=== PATIENT | female | born 1950 | race Caucasian/White ===

== ENCOUNTER 2016-04-07 11:05 | Inpatient (IN) | payer MEDICARE ==
[~2016-04-07] VITALS: Ht 167.6 cm; Wt 63.6 kg
[2016-04-07] VITALS (8 sets, daily range): BP systolic 115–143; BP diastolic 55–60; PULSE 59–73; RESP 16–28; TEMP 97.6; O2SAT 93–100
[~2016-04-07 11:05] MED LIST: ACETAMIN-HYDROcod 325-5 MG PO; AMBI5TAB PO; DOCU1CAP39 PO; FLUO20TA20 PO; MEGE40SU PO; PHEN100 PO; VANC500 PO
[2016-04-07 12:14] LABS: AUTOMATED NEUTROPHIL # 7.2 TH/MM3 (1.8-7.7); BASOPHIL # 0.1 TH/MM3 (0-0.2); BASOPHIL % 0.6 % (0.0-2.0); EOSINOPHIL # 0.2 TH/MM3 (0-0.4); EOSINOPHIL % 2.3 % (0.0-4.0); HEMATOCRIT 37.3 % (35.0-46.0); HEMO FLAGS DIFF FINAL; LYMPH % 16.8 % (9.0-44.0); LYMPHOCYTE # 1.7 TH/MM3 (1.0-4.8); MEAN CELL VOLUME 83.4 FL (80.0-100.0); MEAN CORPUSCULAR HEMOGLOBIN 29.1 PG (27.0-34.0); MEAN CORPUSCULAR HGB CONC 34.9 % (32.0-36.0); NEUT % 71.3 % (16.0-70.0); PLATELET COUNT 457 TH/MM3 (150-450); RED BLOOD COUNT 4.47 MIL/MM3 (4.00-5.30); RED CELL DISTRIBUTION WIDTH 13.4 % (11.6-17.2); WHITE BLOOD COUNT 10.1 TH/MM3 (4.0-11.0)
[2016-04-07] MEDS ORDERED: TEGR200T PO (12:28)
[2016-04-07] MEDS ORDERED: SODIUM CHLOR 0.9% 1000 ML INJ 1,000 ML IV ONE (12:28)
--- NOTE | 2016-04-07 12:29 | PD ---
HPI Chief Complaint: Seizure Time Seen by Provider: 12:29 Travel History International Travel<30 days: No Contact w/Intl Traveler<30days: No Traveled to known affect area: No History of Present Illness HPI 66-year-old female presents to the emergency department via EMS for evaluation of seizures. According to the at bedside, he was driving down the road. The patient started staring out the window and started seizing. She vomited several times. He reports 3-4 iaob-zw-ispo seizures. He states they lasted a couple of minutes each time. She had no incontinence or tongue biting during the episodes. He does state she was postictal after. The patient reports history of seizures and is on Tegretol. She sees Dr. Mcginnis. She states she was placed on Tegretol approximate one month ago. She was previously on Dilantin, but it made her too tired since she was switched to Tegretol. She is unsure of her doses of Tegretol at this time. The patient also reports history of COPD and depression. She is currently on inhaler, Prozac, Tegretol. She also states she took Mucinex this morning due to being congested. Patient denies any fevers or chills. No chest pain or shortness of breath. She denies any abdominal pain. Patient denies any headache. Patient states she feels tired and fatigued at this time. Patient states the last seizure she had was in October after she was admitted with hyponatremia. She states that she also takes a salt tablet every day to 2 history of hyponatremia. She states she had lab work done several weeks ago which showed a sodium level of 1:30, she is unsure of her current sodium level. PFSH Past Medical History Arthritis: Yes Anxiety: No Depression: Yes Cancer: No Cardiovascular Problems: No COPD: Yes Diminished Hearing: Yes Endocrine: No Genitourinary: No Immune Disorder: No Musculoskeletal: No Neurologic: Yes Psychiatric: Yes Reproductive: No Respiratory: Yes (COPD) Seizures: Yes ?: Not Past Surgical History Abdominal Surgery: Yes (gallbladder removal ) Cholecystectomy: Yes (LAP) Social History Alcohol Use: No Tobacco Use: Yes (02/27 PPD ) Substance Use: No Allergies-Medications (Allergen,Severity, Reaction): Coded Allergies: No Known Allergies (Unverified , 04/07/16) Reported Meds & Prescriptions Reported Meds & Active Scripts Active Reported Tegretol (Carbamazepine) 200 Mg Tab 400 Mg PO BID Fluoxetine Hcl (Fluoxetine HCl) 20MG Cap 20 Mg PO DAILY Review of Systems Except as stated in HPI: all other systems reviewed are Neg Physical Exam Narrative GENERAL: Well-developed well-nourished female patient, afebrile. Hard of hearing. SKIN: Warm and dry. HEAD: Normocephalic. Atraumatic. EYES: No scleral icterus. No injection or drainage. NECK: Supple, trachea midline. No JVD or lymphadenopathy. CARDIOVASCULAR: Regular rate and rhythm without murmurs, gallops, or rubs. RESPIRATORY: Breath sounds equal bilaterally. No accessory muscle use. Mild expiratory wheezes noted. GASTROINTESTINAL: Abdomen soft, non-tender, nondistended. MUSCULOSKELETAL: No cyanosis, or edema. Bilateral upper and lower extremity strength 5/5. All extremities are neurovascularly intact. BACK: Nontender without obvious deformity. No CVA tenderness. Data Data Last Documented VS Vital Signs Date Time Temp Pulse Resp B/P Pulse Ox O2 Delivery O2 Flow Rate FiO2 04/07/16 13:03 65 16 116/55 98 Room Air 04/07/16 11:18 97.6 Orders Complete Blood Count With Diff (04/07/16 11:28) Comprehensive Metabolic Panel (04/07/16 11:28) Electrocardiogram (04/07/16 ) Carbamazepine (Tegretol) (04/07/16 11:28) Chest, Single Ap (04/07/16 ) Urinalysis - C+S If Indicated (04/07/16 12:26) Blood Glucose (04/07/16 12:28) Ecg Monitoring (04/07/16 12:28) Iv Access Insert/Monitor (04/07/16 12:28) Oximetry (04/07/16 12:28) Sodium Chlor 0.9% 1000 Ml Inj (Ns 1000 M (04/07/16 12:28) Sodium Chloride 0.9% Flush (Ns Flush) (04/07/16 12:30) Levetiracetam 1000 Mg Inj (Keppra 1000 M (04/07/16 12:30) ^ Seizure Precautions (04/07/16 12:30) Labs Laboratory Tests Test 04/07/16 11:50 White Blood Count 10.1 TH/MM3 Red Blood Count 4.47 MIL/MM3 Hemoglobin 13.0 GM/DL Hematocrit 37.3 % Mean Corpuscular Volume 83.4 FL Mean Corpuscular Hemoglobin 29.1 PG Mean Corpuscular Hemoglobin 34.9 % Concent Red Cell Distribution Width 13.4 % Platelet Count 457 TH/MM3 Mean Platelet Volume 6.7 FL Neutrophils (%) (Auto) 71.3 % Lymphocytes (%) (Auto) 16.8 % Monocytes (%) (Auto) 9.0 % Eosinophils (%) (Auto) 2.3 % Basophils (%) (Auto) 0.6 % Neutrophils # (Auto) 7.2 TH/MM3 Lymphocytes # (Auto) 1.7 TH/MM3 Monocytes # (Auto) 0.9 TH/MM3 Eosinophils # (Auto) 0.2 TH/MM3 Basophils # (Auto) 0.1 TH/MM3 CBC Comment DIFF FINAL Differential Comment Sodium Level 124 MEQ/L Potassium Level 4.0 MEQ/L Chloride Level 88 MEQ/L Carbon Dioxide Level 29.7 MEQ/L Anion Gap 6 MEQ/L Blood Urea Nitrogen 12 MG/DL Creatinine 0.80 MG/DL Estimat Glomerular Filtration 71 ML/MIN Rate Random Glucose 98 MG/DL Calcium Level 8.3 MG/DL Total Bilirubin 0.2 MG/DL Aspartate Amino Transf 11 U/L (AST/SGOT) Alanine Aminotransferase 20 U/L (ALT/SGPT) Alkaline Phosphatase 181 U/L Total Protein 6.8 GM/DL Albumin 3.5 GM/DL Carbamazepine (Tegretol) Level 5.3 MCG/ML MDM Medical Decision Making Medical Screen Exam Complete: Yes Emergency Medical Condition: Yes Medical Record Reviewed: Yes Interpretation(s) chest x-ray - CONCLUSION: No acute disease. Differential Diagnosis Seizure versus status epilepticus versus hyponatremia versus pneumonia Narrative Course 66-year-old female presents to the emergency department for evaluation of 3-4 stsd-ow-iocq seizures with a history of seizures and hyponatremia. EKG, CBC, CMP, UA, chest x-ray, Tegretol level are ordered and pending. Patient is given normal saline 1 L IV bolus. I discussed the case with my attending physician, Dr. Lee, who recommends Keppra 1 g IV. EKG [-]. CBC shows no acute abnormality. CMP shows a critically low sodium of 124, no other acute abnormality. UA [-]. Tegretol level is 5.3. Chest x-ray shows no acute disease. 1248 - lab called with a critical sodium level of 124. 1305 - Trust Administrator treasury management sales consultant is paged. [phone] - Dr. Velasquez accepted admission. Diagnosis Primary Impression: Hyponatremia Additional Impression: Seizures Admitting Information Admitting Physician Requests: Admit Gricelda Samaniego Apr 07, 2016 12:29
[2016-04-07] MEDS ORDERED: levETIRAcetam 1000 MG INJ 100 ML IV ONE (12:30)
[2016-04-07 12:41] LABS: ALKALINE PHOSPHATASE 181 U/L (45-117); ALT (GPT) 20 U/L (10-53); ANION GAP 6 MEQ/L (5-15); AST (GOT) 11 U/L (15-37); BICARBONATE 29.7 MEQ/L (21.0-32.0); BLOOD UREA NITROGEN 12 MG/DL (7-18); CHLORIDE 88 MEQ/L (98-107); GLOMERULAR FILTRATION RATE 71 ML/MIN (>89); TOTAL BILIRUBIN ADULT 0.2 MG/DL (0.2-1.0)
[2016-04-07 12:47] LABS: SODIUM (NA) 124 MEQ/L (136-145)
[2016-04-07] MEDS: SODIUM CHLORIDE 0.9% FLUSH 5 ML FLUSH IVF PRN ×2 (12:50→14:45)
--- NOTE | 2016-04-07 13:09 | RADRPT ---
EXAM DATE/TIME: 04/07/2016 12:31 [facility] COMPARISON: CHEST SINGLE AP, October 29, 2015, 15:03. INDICATIONS : Wheezing, Seizures MEDICAL HISTORY : Hypertension. Seizures, Smoker. SURGICAL HISTORY : None. ENCOUNTER: Initial ACUITY: 1 day PAIN SCORE: 0/10 LOCATION: chest FINDINGS: A single view of the chest demonstrates the lungs to be symmetrically aerated without evidence of mas s, infiltrate or effusion. The cardiomediastinal contours are unremarkable. Osseous structures are intact. CONCLUSION: No acute disease. Wade Nieves MD FACR on April 07, 2016 at 13:07 Board Certified Radiologist. This report was verified electronically.
[2016-04-07] MEDS ORDERED: ONDANSETRON HCL 4 MG/2 ML VIAL IV PUSH ONE (14:00)
[2016-04-07] MEDS ORDERED: MORPHINE SULFATE 4 MG/ML INJ IV PUSH ONE (14:00)
[2016-04-07 15:07] LABS: BACTERIA, URINE RARE /hpf; BLOOD, URINE NEG (NEG); COMMENT (UR) CULTURE INDICATED; CULTURE IF INDICATED CULTURE INDICATED; GLUCOSE,URINE NEG (NEG); GRANULAR CAST, URINE 1 /lpf; KETONE, URINE NEG (NEG); PH, URINE 6.5 (5.0-8.5); SQUAMOUS EPITHELIAL CELL URINE 3 /hpf (0-5); URINE COLOR LIGHT-YELLOW (YELLW/STRAW)
[2016-04-07 15:12] LABS: NITRITE,URINE POS (NEG)
--- NOTE | 2016-04-07 16:57 | MB ---
cc: SARITA SEXTON DATE OF CONSULTATION 04/07/16 A 66-year-old right-handed woman with a history of hypertension, COPD who had a first seizure in December of 2014 when she had low-sodium and then evidently was put on Dilantin, had another seizure in September of 2015 and has not any seizures since, but about a month ago was switched from Dilantin to Tegretol as far as she knows and had another seizure today with which she felt lightheaded and then blacked out. She usually has generalized tonic clonic seizures with some incontinence and tongue biting. She has had no other seizures, however, besides these stated seizures. No odd smells, taste or federico vu or woken up, wet the bed of bitten her tongue. She started staring out the window and started seizing. She vomited several times, had three to four mpzj-na-iefn seizures, postictal afterwards, some history of depression. SOCIAL HISTORY Not a smoker or drinker, lives with her . FAMILY HISTORY Negative for cancer, seizure or stroke. REVIEW OF SYSTEMS No recent illness or headache. She says there is a history of hypertension, COPD, but she denies any history of diabetes, hypercholesterolemia, [place], stent, angioplasty, atrial fibrillation, Coumadin, renal, hepatic, thyroid disease, lupus, ulcer, cancer, stroke. She has never had any head injury or anything else that might cause a seizure. She was seen by Dr. Mcginnis in October of 2015. She became aphasic in the emergency room, some twitching on the left side of the face. At that time, she had a sodium of 116 and he noted that she had had a seizure prior with low-sodium. The sodium was up to 131 when she had the seizure. He started her on Keppra. EEG was normal. She had some seizures after being on Keppra. Dilantin was added. Keppra was stopped. ALLERGIES No known drug allergies. MEDICATIONS 1. Fluoxetine 2. Tegretol 400 mg twice a day PHYSICAL EXAMINATION On exam afebrile, 121/58, 93, 16, 65. There are no carotid bruits. Heart was regular rhythm. I did not detect a murmur. Pupils are equal. Visual ontiveros are full. Extraocular movements are intact without nystagmus. Face symmetric with normal sensation. Tongue was midline. There is no drift. She had normal strength in upper and lower extremities bilaterally. DTRs are trace throughout. Toes downgoing bilaterally. Pinprick is intact throughout. She is not ataxic on [id number]. She is a little hard of hearing but speech is fluent. She is not aphasic. LABORATORY DATA CBC is normal today. Tegretol level was 5.3. UA positive nitrite but no white cells, leukocyte esterase negative. Sodium today is 124. She has a long history of hyponatremia. LFTs are normal. Albumin 3.5, glucose 98, calcium 8.3. IMAGING STUDIES Chest x-ray is normal. MRI of the brain was normal. In October of 2015, carotid ultrasound was negative at that time. MRI of the brain was done without contrast. IMPRESSION Breakthrough seizures, hyponatremia. With the sodium of course can continue to keep the sodium low. The Tegretol of course can cause some hyponatremia, but she has had that predating the Tegretol. I think we will switch her to Depakote at this point. She was switched off Dilantin due to the feeling of fatigue on it. If her MRI is negative, she could be discharged when they get her sodium up to normal, but do not increase the sodium more than 10 mEq a day to prevent a central pontine myelinolysis. We will check an MRI of the brain with contrast. If her sodium does not come up as an outpatient, we should have see renal outpatient because of hyponatremia, chronic. MD ELISSA Moore/ /4:18 PM /4:33 PM
[2016-04-07] MEDS ORDERED: SODIUM CHLOR 0.9% 1000 ML INJ 1,000 ML IV SCH (17:03)
[2016-04-07] MEDS ORDERED: ONDANSETRON HCL 4 MG/2 ML VIAL IV PRN (17:15)
[2016-04-07] MEDS ORDERED: MISCELLANEOUS NURSING INFORMATION XX SCH (17:15)
[2016-04-07] MEDS ORDERED: ACETAMINOPHEN 325 MG TAB PO PRN (17:15)
[2016-04-07] MEDS ORDERED: METOCLOPRAMIDE HCL 10 MG/2 ML VIAL IV PRN (17:15)
[2016-04-07] MEDS ORDERED: CHLORHEXIDINE GLUCONATE 2 % 1 PACK (2 CLOTHS) TOP PRN (17:15)
[2016-04-07] MEDS ORDERED: SODIUM CHLORIDE 0.9% FLUSH 5 ML FLUSH IV FLUSH PRN (17:15)
--- NOTE | 2016-04-07 17:24 | HHI.HP ---
HPI Service Critical Care Medicine Primary Care Physician Elroy Milian M.D. Admission Diagnosis hyponatremia, seizures Diagnosis: Travel History International Travel<30 Days: No Contact w/Intl Traveler <30 Da: No Traveled to Known Affected Are: No History of Present Illness 66-year-old female presents for evaluation of seizures. According to the at bedside, he was driving down the road. The patient started staring out the window and started seizing. She vomited several times. He reports 3-4 iqin-an-vraj seizures. He states they lasted a couple of minutes each time. She had no incontinence or tongue biting during the episodes. He does state she was postictal after. The patient reports history of seizures and is on Tegretol. She sees Dr. Mcginnis. She states she was placed on Tegretol approximate one month ago. She was previously on Dilantin, but it made her too tired since she was switched to Tegretol. Review of Systems Constitutional: DENIES: Diaphoretic episodes, Fatigue, Fever, Weight gain, Weight loss, Chills, Dizziness, Change in appetite, Night Sweats Endocrine: DENIES: Abnorml menstrual pattern, Heat/cold intolerance, Polydipsia , Polyuria, Polyphagia Eyes: DENIES: Blurred vision, Diplopia, Eye inflammation, Eye pain, Vision loss , Photosensitivity, Double Vision Ears, nose, mouth, throat: DENIES: Tinnitus, Hearing loss, Vertigo, Nasal discharge, Oral lesions, Throat pain, Hoarseness, Ear Pain, Running Nose, Epistaxis, Sinus Pain, Toothache, Odynophagia Respiratory: DENIES: Apneas, Cough, Snoring, Wheezing, Hemoptysis, Sputum production, Shortness of breath Cardiovascular: DENIES: Chest pain, Palpitations, Syncope, Dyspnea on Exertion , PND, Lower Extremity Edema, Orthopnea, Claudication Gastrointestinal: DENIES: Abdominal pain, Black stools, Bloody stools, Constipation, Diarrhea, Nausea, Vomiting, Difficulty Swallowing, Anorexia Genitourinary: DENIES: Abnormal vaginal bleeding, Dysmenorrhea, Dyspareunia, Sexual dysfunction, Urinary frequency, Urinary incontinence, Urgency, Hematuria , Dysuria, Nocturia, Vaginal discharge Musculoskeletal: DENIES: Joint pain, Muscle aches, Stiffness, Joint Swelling, Back pain, Neck pain Integumentary: DENIES: Abnormal pigmentation, Pruritus, Rash, Nail changes, Breast masses, Breast skin changes, Nipple discharge Hematologic/lymphatic: DENIES: Bruising, Lymphadenopathy Immunologic/allergic: DENIES: Eczema, Urticaria Neurologic: DENIES: Abnormal gait, Headache, Localized weakness, Paresthesias, Seizures, Speech Problems, Tremor, Poor Balance Psychiatric: DENIES: Anxiety, Confusion, Mood changes, Depression, Hallucinations, Agitation, Suicidal Ideation, Homicidal Ideation, Delusions Past Family Social History Allergies: Coded Allergies: No Known Allergies (Unverified , 04/07/16) Past Medical History Depression COPDon home oxygen at nighttime, and daytime when necessary Seizures from hyponatremia Past Surgical History Cholecystectomy Reported Medications Reported Meds & Active Scripts Active Reported Tegretol (Carbamazepine) 200 Mg Tab 400 Mg PO BID Fluoxetine Hcl (Fluoxetine HCl) 20MG Cap 20 Mg PO DAILY Active Ordered Medications Current Medications Medications (Trade) Dose Ordered Sig/Julieta Route PRN Reason Start Time Stop Time Status Last Admin Dose Admin Carbamazepine (TEGretol) 400 mg Q12HR PO 04/07/16 21:00 04/07/16 20:38 Divalproex Sodium 1000 mg 1,000 mg HS PO 04/07/16 21:00 04/07/16 20:38 Sodium Chloride (NS 1000 ml Inj) 1,000 ml @ 75 mls/hr [id number] IV 04/07/16 16:25 04/08/16 05:45 IV Flush (NS Flush) 2 ml UNSCH PRN IV FLUSH FLUSH AFTER USING IV ACCESS 04/07/16 17:15 IV Flush (NS Flush) 2 ml BID IV FLUSH 04/07/16 21:00 04/07/16 20:46 Acetaminophen (Tylenol) 650 mg Q6H PRN PO PAIN 1-10 AND/OR FEVER >101F 04/07/16 17:15 Morphine Sulfate (Morphine Inj) 2 mg Q2H PRN IV PAIN SCALE 6 TO 10 04/07/16 17:15 04/08/16 05:09 Famotidine (Pepcid Inj) 20 mg Q12HR IV PUSH 04/07/16 21:00 04/07/16 20:40 Ondansetron HCl (Zofran Inj) 4 mg Q6H PRN IV NAUSEA OR VOMITING 04/07/16 17:15 Metoclopramide HCl (Reglan Inj) 10 mg Q6H PRN IV NAUSEA OR VOMITING 04/07/16 17:15 Docusate Sodium (Colace) 100 mg BID PO 04/07/16 21:00 04/07/16 20:38 Zolpidem Tartrate (Ambien) 5 mg HS PRN PO INSOMNIA 04/07/16 17:15 04/07/16 20:39 Enoxaparin Sodium (Lovenox Inj) 30 mg Q24H SQ 04/07/16 18:00 Miscellaneous Information 1 [id number] 04/07/16 17:15 Chlorhexidine Gluconate (Chlorhexidine 2% Cloth) 3 pack Taper DAILY@04 TOP 04/08/16 04:00 04/04/17 03:59 Chlorhexidine Gluconate (Chlorhexidine 2% Cloth) 3 pack UNSCH PRN [facility] 04/07/16 17:15 Sodium Chloride (Sodium Chloride) 3 gm QID PO 04/07/16 21:00 04/07/16 20:56 Family History Noncontributory Social History Tobacco use: quit 3 years ago Alcohol use: Denies Drug use: Denies Physical Exam Vital Signs Vital Signs Date Time Temp Pulse Resp B/P Pulse Ox O2 Delivery O2 Flow Rate FiO2 04/07/16 17:17 68 16 123/58 100 Room Air 04/07/16 14:49 73 16 115/57 96 Room Air 04/07/16 13:03 65 16 116/55 98 Room Air 04/07/16 11:19 Room Air 04/07/16 11:18 97.6 63 18 121/58 93 Room Air 04/07/16 11:18 97.6 63 18 121/58 93 Physical Exam GENERAL: Well-nourished, well-developed patient. SKIN: Warm and dry. HEAD: Normocephalic. EYES: No scleral icterus. No injection or drainage. NECK: Supple, trachea midline. No JVD or lymphadenopathy. CARDIOVASCULAR: Regular rate and rhythm without murmurs, gallops, or rubs. RESPIRATORY: Breath sounds equal bilaterally. No accessory muscle use. GASTROINTESTINAL: Abdomen soft, non-tender, nondistended. MUSCULOSKELETAL: No cyanosis, or edema. BACK: Nontender without obvious deformity. No CVA tenderness. EXTREMITIES: Laboratory Laboratory Tests Test 04/07/16 04/07/16 11:50 14:38 White Blood Count 10.1 Red Blood Count 4.47 Hemoglobin 13.0 Hematocrit 37.3 Mean Corpuscular Volume 83.4 Mean Corpuscular Hemoglobin 29.1 Mean Corpuscular Hemoglobin 34.9 Concent Red Cell Distribution Width 13.4 Platelet Count 457 Mean Platelet Volume 6.7 Neutrophils (%) (Auto) 71.3 Lymphocytes (%) (Auto) 16.8 Monocytes (%) (Auto) 9.0 Eosinophils (%) (Auto) 2.3 Basophils (%) (Auto) 0.6 Neutrophils # (Auto) 7.2 Lymphocytes # (Auto) 1.7 Monocytes # (Auto) 0.9 Eosinophils # (Auto) 0.2 Basophils # (Auto) 0.1 CBC Comment DIFF FINAL Differential Comment Sodium Level 124 Potassium Level 4.0 Chloride Level 88 Carbon Dioxide Level 29.7 Anion Gap 6 Blood Urea Nitrogen 12 Creatinine 0.80 Estimat Glomerular Filtration 71 Rate Random Glucose 98 Calcium Level 8.3 Total Bilirubin 0.2 Aspartate Amino Transf 11 (AST/SGOT) Alanine Aminotransferase 20 (ALT/SGPT) Alkaline Phosphatase 181 Total Protein 6.8 Albumin 3.5 Carbamazepine (Tegretol) Level 5.3 Urine Color LIGHT-YELLOW Urine Turbidity CLEAR Urine pH 6.5 Urine Specific [place] 1.007 Urine Protein NEG Urine Glucose (UA) NEG Urine Ketones NEG Urine Occult Blood NEG Urine Nitrite POS Urine Bilirubin NEG Urine Urobilinogen LESS THAN 2.0 Urine Leukocyte Esterase NEG Urine WBC LESS THAN 1 Urine Squamous Epithelial 3 Cells Urine Bacteria RARE Urine Granular Casts 1 Microscopic Urinalysis Comment CULTURE INDICATED Date/Time Procedure Status Source Growth 04/07/16 14:38 Urine Culture Received Urine Clean Catch Pending Result Diagram: 04/07/16 1150 04/07/16 1150 Assessment and Plan Problem List: (1) Hyponatremia ICD Code: E87.1 Status: Acute (2) Seizures ICD Code: R56.9 Status: Resolved Assessment and Plan Seizures - Attempt to correct hyponatremia - Resume Dilantin - Hold Tegretol - Further per neurology Hyponatremia - Increased by mouth salt tablets - Nephrology consult DVT GI prophylaxis - Teds SCDs only aggressive mobilization regular diet Critical Care: The total critical care time was 35 minutes. Time to perform other separately billable procedures was not included in the critical care time. Efrain Velasquez MD Apr 07, 2016 17:24
[2016-04-07] MEDS: SODIUM CHLOR 0.9% 1000 ML INJ 1,000 ML IV SCH (18:19)
[2016-04-07] MEDS: DOCUSATE SODIUM 100 MG CAP PO SCH (20:38)
[2016-04-07] MEDS: DIVALPROEX SODIUM E.R. 500 MG TAB PO SCH (20:38)
[2016-04-07] MEDS: carBAMazepine 200 MG TAB PO SCH (20:38)
[2016-04-07] MEDS: MORPHINE SULFATE 4 MG/ML INJ IV PRN (20:39)
[2016-04-07] MEDS: ZOLPIDEM TARTRATE 5 MG TAB PO PRN (20:39)
[2016-04-07] MEDS: FAMOTIDINE 20 MG/2 ML VIAL IV PUSH SCH (20:40)
[2016-04-07] MEDS: SODIUM CHLORIDE 0.9% FLUSH 5 ML FLUSH IV FLUSH SCH (20:46)
[2016-04-07] MEDS: SODIUM CHLORIDE 1 GRAM TAB PO SCH (20:56)
[2016-04-07] MEDS: CHLORHEXIDINE GLUCONATE 2 % 1 PACK (2 CLOTHS) TOP SCH (22:27)
[2016-04-08] VITALS (12 sets, daily range): BP systolic 113–148; BP diastolic 54–63; PULSE 54–71; RESP 18–28; TEMP 97.8–98.7; O2SAT 98
[2016-04-08 04:30] LABS: AUTOMATED NEUTROPHIL # 4.1 TH/MM3 (1.8-7.7); BASOPHIL # 0.1 TH/MM3 (0-0.2); EOSINOPHIL # 0.1 TH/MM3 (0-0.4); EOSINOPHIL % 2.1 % (0.0-4.0); HEMATOCRIT 34.7 % (35.0-46.0); HEMO FLAGS DIFF FINAL; LYMPH % 23.4 % (9.0-44.0); LYMPHOCYTE # 1.5 TH/MM3 (1.0-4.8); MEAN CELL VOLUME 83.5 FL (80.0-100.0); MEAN CORPUSCULAR HEMOGLOBIN 29.3 PG (27.0-34.0); MEAN CORPUSCULAR HGB CONC 35.1 % (32.0-36.0); MONO % 9.6 % (0.0-8.0); NEUT % 62.9 % (16.0-70.0); PLATELET COUNT 394 TH/MM3 (150-450); RED BLOOD COUNT 4.15 MIL/MM3 (4.00-5.30); RED CELL DISTRIBUTION WIDTH 13.5 % (11.6-17.2); WHITE BLOOD COUNT 6.5 TH/MM3 (4.0-11.0)
[2016-04-08 04:52] LABS: ALKALINE PHOSPHATASE 172 U/L (45-117); ALT (GPT) 97 U/L (10-53); ANION GAP 6 MEQ/L (5-15); AST (GOT) 100 U/L (15-37); BLOOD UREA NITROGEN 8 MG/DL (7-18); CHLORIDE 99 MEQ/L (98-107); GLOMERULAR FILTRATION RATE 88 ML/MIN (>89); POTASSIUM 4.5 MEQ/L (3.5-5.1); SODIUM (NA) 132 MEQ/L (136-145); TOTAL BILIRUBIN ADULT 0.4 MG/DL (0.2-1.0)
[2016-04-08] MEDS: MORPHINE SULFATE 4 MG/ML INJ IV PRN ×5 (05:09→21:12)
[2016-04-08] MEDS: SODIUM CHLOR 0.9% 1000 ML INJ 1,000 ML IV SCH (05:45)
[2016-04-08] MEDS: DOCUSATE SODIUM 100 MG CAP PO SCH ×2 (08:34→21:02)
[2016-04-08] MEDS: SODIUM CHLORIDE 1 GRAM TAB PO SCH ×4 (08:35→21:02)
[2016-04-08] MEDS: carBAMazepine 200 MG TAB PO SCH ×2 (08:35→21:03)
[2016-04-08] MEDS: SODIUM CHLORIDE 0.9% FLUSH 5 ML FLUSH IV FLUSH SCH ×2 (09:00→20:58)
[2016-04-08] MEDS: FAMOTIDINE 20 MG/2 ML VIAL IV PUSH SCH ×2 (09:00→20:58)
--- NOTE | 2016-04-08 09:22 | HHI.PR ---
Subjective Remarks sr no new sz Objective Vital Signs Date Time Temp Pulse Resp B/P Pulse Ox O2 Delivery O2 Flow Rate FiO2 04/08/16 08:47 18 04/08/16 06:00 63 04/08/16 04:00 97.9 61 22 126/56 98 04/08/16 04:00 61 04/08/16 02:00 59 04/08/16 00:00 97.8 65 20 125/58 98 04/08/16 00:00 65 04/07/16 22:00 59 04/07/16 21:32 98 Nasal Cannula 2.00 04/07/16 20:00 97.6 60 28 143/60 95 04/07/16 20:00 60 04/07/16 18:18 62 17 117/58 94 Room Air 04/07/16 17:17 68 16 123/58 100 Room Air 04/07/16 14:49 73 16 115/57 96 Room Air 04/07/16 13:03 65 16 116/55 98 Room Air 04/07/16 11:19 Room Air 04/07/16 11:18 97.6 63 18 121/58 93 Room Air 04/07/16 11:18 97.6 63 18 121/58 93 I/O 04/07/16 04/07/16 04/07/16 04/08/16 04/08/16 04/08/16 07:00 15:00 23:00 07:00 15:00 23:00 Intake Total 647 ml 570 ml Output Total 350 ml 350 ml Balance 297 ml 220 ml Intake Oral 350 ml 45 ml IV Total 297 ml 525 ml Output Urine Total 350 ml 350 ml Stool Total 0 ml 0 ml # Voids 1 1 Result Diagram: 04/08/16 0306 04/08/16 0306 Objective Remarks awake feels and looks well nl speech Assessment and Plan Assessment and Plan imp na low changing over to vpa but will stay on tegretol until depakote level up if mri neg and eeg done she could dc later today take one depakote er 500mg tonight and two tomorrow noc and continue with 1000mg hs call dr johnson sunday for level check and taper off cbz then i will fu eeg Ruben Serrano MD Apr 08, 2016 09:22
--- NOTE | 2016-04-08 09:23 | HHI.PR ---
Subjective Remarks sr no new sz Objective Vital Signs Date Time Temp Pulse Resp B/P Pulse Ox O2 Delivery O2 Flow Rate FiO2 04/08/16 08:47 18 04/08/16 06:00 63 04/08/16 04:00 97.9 61 22 126/56 98 04/08/16 04:00 61 04/08/16 02:00 59 04/08/16 00:00 97.8 65 20 125/58 98 04/08/16 00:00 65 04/07/16 22:00 59 04/07/16 21:32 98 Nasal Cannula 2.00 04/07/16 20:00 97.6 60 28 143/60 95 04/07/16 20:00 60 04/07/16 18:18 62 17 117/58 94 Room Air 04/07/16 17:17 68 16 123/58 100 Room Air 04/07/16 14:49 73 16 115/57 96 Room Air 04/07/16 13:03 65 16 116/55 98 Room Air 04/07/16 11:19 Room Air 04/07/16 11:18 97.6 63 18 121/58 93 Room Air 04/07/16 11:18 97.6 63 18 121/58 93 I/O 04/07/16 04/07/16 04/07/16 04/08/16 04/08/16 04/08/16 07:00 15:00 23:00 07:00 15:00 23:00 Intake Total 647 ml 570 ml Output Total 350 ml 350 ml Balance 297 ml 220 ml Intake Oral 350 ml 45 ml IV Total 297 ml 525 ml Output Urine Total 350 ml 350 ml Stool Total 0 ml 0 ml # Voids 1 1 Result Diagram: 04/08/166 04/08/16 0306 Objective Remarks awake feels and looks well nl speech Assessment and Plan Assessment and Plan imp na low changing over to vpa but will stay on tegretol until depakote level up if mri neg and eeg done she could dc later today continue with depakote 1000mg hs call dr johnson sunday for level check and taper off cbz then i will fu eeg Ruben Serrano MD Apr 08, 2016 09:23
[2016-04-08] MEDS ORDERED: GADODIAMIDE PF 287 MG/ML 10 ML VIAL (for RAD MRI) IV ONE (10:15)
--- NOTE | 2016-04-08 13:12 | EKG ---
Date Performed: 04/07/2016 Time Performed: 11:47:39 PTAGE: 66 years EKG: Sinus rhythm NORMAL ECG Compared to prior tracing no significant change PREVIOUS TRACING : 11/01/2015 11.43 DOCTOR: Emmanuel Cannon Interpretating Date/Time 04/08/2016 13:10:54
--- NOTE | 2016-04-08 13:31 | MB ---
cc: JAGJIT SCHUMACHER MD DATE OF CONSULTATION: 04/08/2016. REASON FOR CONSULTATION: Hyponatremia for evaluation. HISTORY OF PRESENT ILLNESS: This is a 66-year-old female with past medical history of seizure disorder, history of depression, chronic obstructive pulmonary disease, and history of chronic hyponatremia who came to the hospital with seizure. I was called to see the patient because of a low sodium level. The patient has a past history of low sodium and her sodium was as low as 116 in October of last year and this time she came with 124 sodium and it improved to 132. The patient admits that she has been drinking a lot of coffee, three to four big cups a day along with other fluids but she is saying that she has does not drink too much water. She denies any history of diarrhea but she was vomiting yesterday after she had a seizure. She was sitting in the car with her and started having seizure and after the seizure, she started vomiting three or four times and she lost consciousness partially after the seizure. There was no incontinence. The patient has been getting dilantin and also she was on Tegretol. The patient has been following with a neurologist during the last admissions but I do not see any player manager seeing her before. She has been taking Prozac for her depression. Her appetite is not very good and she admits that she has not been eating very well but this has been chronic. PAST MEDICAL HISTORY: 1. Seizure disorder. 2. Chronic hyponatremia. 3. Depression. 4. Chronic obstructive pulmonary disease. PAST SURGICAL HISTORY: 1. Cholecystectomy. REVIEW OF SYSTEMS: There is no history of fever. No sore throat. No headache or dizziness or blurring of vision. She has decreased appetite, which is chronic. There is no shortness of breath. No chest pain. She had a seizure yesterday, three to four episodes of generalized seizure with partial loss of consciousness. There was no incontinence. She started vomiting after that. She has been taking Prozac for depression and she has been drinking three to four big cups of coffee a day along with other fluid. There is no history of diarrhea. SOCIAL HISTORY: The patient is and lives with her . She stopped smoking three years ago. There is no history of alcoholism. 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 FAMILY HISTORY: Noncontributory . ALLERGIES: She is has NO KNOWN DRUG ALLERGIES. MEDICATIONS: Currently she is on: 1. Normal saline at 75 an hour. 2. Colace 100 milligrams twice a day. 3. She is on Depakote 1 gram at bedtime. 4. Tegretol 400 milligrams q. 12 hours. 5. Famotidine 20 milligrams q. 12 hours. 6. Lovenox 30 milligrams subcutaneous q. 24 hours. 7. Tylenol, Zofran and Reglan as needed. PHYSICAL EXAMINATION: GENERAL: On examination, the patient is awake and alert and she is not in acute distress. VITAL SIGNS: Her last blood pressure was 133/63, temperature is 98.7, oxygen saturation is 98%. HEAD, EYES, EARS, NOSE, THROAT: The pupils are equal and reacting to light. Nonicteric sclerae. Conjunctivae are normal. NECK: The neck is supple. JVD is not elevated. LUNGS: The patient has bilateral good air entry with occasional wheezing. HEART: S1 and S2 regular rhythm. ABDOMEN: Abdomen is distended, soft and lax. There is no tenderness. Bowel sounds positive. EXTREMITIES: There is no pedal edema. INVESTIGATIONS: WBC count is 6.5, hemoglobin 12.2, platelet count of 394,000. Sodium 132, potassium 4.5, chloride 99, bicarb 27, BUN 8, creatinine 0.67, AST is 100, ALT is 97, total protein is 5.9 with albumin of 2.9. Her INR is 1.0. Urinalysis showing there is no proteinuria. Her urine specific gravity was 1.007 when she was admitted. Previously she had a urine osmolality of 284 and this was in October and sodium was 52 at that time. IMAGING STUDIES: The patient had a chest x-ray done which shows lung ontiveros are clear. MRI of the brain was done and the results are pending. ASSESSMENT AND PLAN: 1. Hyponatremia. 2. Seizure disorder 3. History of depression. 4. COPD. 5. History of smoking in the past. The patient has had significant hyponatremia in the past and clinically she looks euvolemic. Her osmolality was low in the past in the urine, although her serum osmolality was also low. The hyponatremia is a combination of excessive fluid intake because her urine specific gravity was quite low and there is possibility of excessive fluid intake. I did discuss with the patient and asked her to decrease her oral fluid intake especially the intake of her coffee and she should also consider stopping the Prozac. She is not on Prozac right now and if needed, she can be referred to the psychiatrist to start some other anti-depressive medications since Prozac is well-known to cause hyponatremia. Thank you for the consultation. Her sodium is better right now. I will also check her TSH level. I will follow the patient while she is in the hospital. MD MALISSA Doty/JIGAR /11:25 AM /1:18 PM
[2016-04-08] MEDS: ENOXAPARIN SODIUM 30 MG/0.3 ML SYRINGE SQ SCH ×2 (17:40→17:50)
--- NOTE | 2016-04-08 19:18 | HHI.PR ---
Subjective Remarks no further seizures sodium is trending up denies headache or visual disturbance denies dizziness vital signs stable Per RN patient was up on chair but complained of low back pain Objective Vitals Vital Signs Date Time Temp Pulse Resp B/P Pulse Ox O2 Delivery O2 Flow Rate FiO2 04/08/16 18:00 66 04/08/16 17:43 22 04/08/16 16:00 98.3 71 18 113/54 98 04/08/16 16:00 71 04/08/16 14:00 67 04/08/16 12:00 97.8 56 18 132/60 98 04/08/16 12:00 64 04/08/16 10:00 62 04/08/16 08:00 54 04/08/16 08:00 98.7 54 20 133/63 98 04/08/16 06:00 63 04/08/16 04:00 97.9 61 22 126/56 98 04/08/16 04:00 61 04/08/16 02:00 59 04/08/16 00:00 97.8 65 20 125/58 98 04/08/16 00:00 65 04/07/16 22:00 59 04/07/16 21:32 98 Nasal Cannula 2.00 04/07/16 20:00 97.6 60 28 143/60 95 04/07/16 20:00 60 I/O 04/07/16 04/07/16 04/07/16 04/08/16 04/08/16 04/08/16 07:00 15:00 23:00 07:00 15:00 23:00 Intake Total 647 ml 570 ml 950 ml Output Total 350 ml 350 ml 560 ml Balance 297 ml 220 ml 390 ml Intake Oral 350 ml 45 ml 500 ml IV Total 297 ml 525 ml 450 ml Output Urine Total 350 ml 350 ml 560 ml Stool Total 0 ml 0 ml # Voids 1 1 Result Diagram: 04/08/16 0306 04/08/16 0306 Imaging Last Impressions Chest X-Ray 04/07/16 0000 Signed Impressions: Service Date/Time: Thursday, April 07, 2016 12:31 - CONCLUSION: No acute disease. Wade Nieves MD FACR Objective Remarks GENERAL: Well-nourished, well-developed patient. SKIN: Warm and dry. HEAD: Normocephalic. EYES: No scleral icterus. No injection or drainage. NECK: Supple, trachea midline. No JVD or lymphadenopathy. CARDIOVASCULAR: Regular rate and rhythm without murmurs, gallops, or rubs. RESPIRATORY: Breath sounds equal bilaterally. No accessory muscle use. GASTROINTESTINAL: Abdomen soft, non-tender, nondistended. MUSCULOSKELETAL: No cyanosis, or edema. BACK: Nontender without obvious deformity. No CVA tenderness. Procedures none Medications and IVs Current Medications Medications (Trade) Dose Ordered Sig/Julieta Route Start Time Stop Time Status Last Admin (TEGretol) 400 mg Q12HR PO 04/07/16 21:00 04/08/16 08:35 Divalproex Sodium 1000 mg 1,000 mg HS PO 04/07/16 21:00 04/07/16 20:38 (NS 1000 ml Inj) 1,000 ml @ 75 mls/hr [id number] IV 04/07/16 16:25 04/08/16 05:45 (NS Flush) 2 ml UNSCH PRN IV FLUSH 04/07/16 17:15 (NS Flush) 2 ml BID IV FLUSH 04/07/16 21:00 04/08/16 09:00 (Tylenol) 650 mg Q6H PRN PO 04/07/16 17:15 (Morphine Inj) 2 mg Q2H PRN IV 04/07/16 17:15 04/08/16 17:38 (Pepcid Inj) 20 mg Q12HR IV PUSH 04/07/16 21:00 04/07/16 20:40 (Zofran Inj) 4 mg Q6H PRN IV 04/07/16 17:15 (Reglan Inj) 10 mg Q6H PRN IV 04/07/16 17:15 (Colace) 100 mg BID PO 04/07/16 21:00 04/08/16 08:34 (Ambien) 5 mg HS PRN PO 04/07/16 17:15 04/07/16 20:39 (Lovenox Inj) 30 mg Q24H SQ 04/07/16 18:00 04/08/16 17:50 Miscellaneous Information 1 Q361D XX 04/07/16 17:15 (Chlorhexidine 2% Cloth) 3 pack Taper DAILY@04 TOP 04/08/16 04:00 04/04/17 03:59 (Chlorhexidine 2% Cloth) 3 pack UNSCH PRN TOP 04/07/16 17:15 (Sodium Chloride) 3 gm QID PO 04/07/16 21:00 04/08/16 17:36 Urinary Catheter: No Vascular Central Line Catheter: No A/P Problem List: (1) Seizures ICD Code: R56.9 Status: Resolved Plan: No further seizures - likely related to acute hyponatremia. CT head - No acute disease Neurology consulted. EEG and MRI pending continue anticonvulsants as per neurology - Currently on Tegretol and Depakote. PT evaluation OOB to chair (2) Hyponatremia ICD Code: E87.1 Status: Acute Plan: Appreciate nephrology recommendations. Continue to hold Prozac since it can cause hyponatremia. Continue to monitor BMP. Will discontinue IV normal saline. Will place patient on fluid restriction Continue salt tablets. (3) Depression ICD Code: F32.9 Status: Acute Plan: Patient has been on Prozac which can cause hyponatremia. Patient is not currently on this and sodium is improving. Will consult psychiatry to help with an alternative medication to control the patient's depression. (4) Chronic back pain ICD Code: M54.9 Status: Acute Plan: Continue pain control with IV morphine. Assessment and Plan DVT prophylaxis: Lovenox SQ GI prophylaxis: Pepcid Discharge Planning pending psych consult, MRI and EEG results, PT evaluation. Problem Qualifiers (1) Depression: Qualified Code: F32.9 - Depression, unspecified depression type (2) Chronic back pain: Qualified Code: M54.40 - Chronic midline low back pain with sciatica, sciatica laterality unspecified Colby Bernard MD Apr 08, 2016 19:18
--- NOTE | 2016-04-08 20:33 | MG ---
cc: SARITA SEXTON Lab No: [id number] Date: Age: Sex: F Race: Hyperventilation not performed. He had several seizures. History of hyponatremia. Tegretol and now Depakote. DESCRIPTION OF RECORDING: Diffuse theta slowing to 6-7 Hz is initially seen but then she gets into a good alpha rhythms posteriorly with some beta waves and also. The recording overall is synchronous and symmetric. No sharp waves are noted. No epileptiform or seizure activity is seen. Photic stimulation is performed without significant posterior driving. IMPRESSION: Some minimal diffuse theta slowing, but an otherwise unremarkable EEG. MD ELISSA Moore/JIGAR /8:11 PM /8:22 PM
[2016-04-08] MEDS: DIVALPROEX SODIUM E.R. 500 MG TAB PO SCH (21:02)
[2016-04-08] MEDS: ZOLPIDEM TARTRATE 5 MG TAB PO PRN (21:10)
[2016-04-09] VITALS (10 sets, daily range): BP systolic 105–130; BP diastolic 50–60; PULSE 59–78; RESP 12–20; TEMP 97.8–98.3; O2SAT 96–99
[2016-04-09] MEDS: MORPHINE SULFATE 4 MG/ML INJ IV PRN ×4 (03:36→16:18)
[2016-04-09] MEDS: CHLORHEXIDINE GLUCONATE 2 % 1 PACK (2 CLOTHS) TOP SCH (03:36)
[2016-04-09 05:02] LABS: BICARBONATE 26.8 MEQ/L (21.0-32.0); POTASSIUM 4.3 MEQ/L (3.5-5.1)
[2016-04-09] MEDS: DOCUSATE SODIUM 100 MG CAP PO SCH (07:47)
[2016-04-09] MEDS: carBAMazepine 200 MG TAB PO SCH (07:48)
[2016-04-09] MEDS: SODIUM CHLORIDE 0.9% FLUSH 5 ML FLUSH IV FLUSH SCH (07:48)
[2016-04-09] MEDS: SODIUM CHLORIDE 1 GRAM TAB PO SCH ×2 (07:48→12:39)
[2016-04-09] MEDS: FAMOTIDINE 20 MG/2 ML VIAL IV PUSH SCH (07:49)
--- NOTE | 2016-04-09 08:22 | HHI.PR ---
Subjective Remarks sr no new sz Objective Vital Signs Date Time Temp Pulse Resp B/P Pulse Ox O2 Delivery O2 Flow Rate FiO2 04/09/16 06:00 65 04/09/16 04:12 31 04/09/16 04:00 97.9 65 18 117/58 97 04/09/16 04:00 63 04/09/16 02:00 65 04/09/16 00:00 66 04/09/16 00:00 97.8 66 12 130/60 99 04/08/16 22:00 67 04/08/16 20:00 66 04/08/16 20:00 98.1 66 28 148/58 98 04/08/16 18:00 66 04/08/16 17:43 22 04/08/16 16:00 98.3 71 18 113/54 98 04/08/16 16:00 71 04/08/16 14:00 67 04/08/16 12:00 97.8 56 18 132/60 98 04/08/16 12:00 64 04/08/16 10:00 62 I/O 04/08/16 04/08/16 04/08/16 04/09/16 04/09/16 04/09/16 07:00 15:00 23:00 07:00 15:00 23:00 Intake Total 570 ml 950 ml 141 ml 0 ml Output Total 350 ml 560 ml 340 ml 420 ml Balance 220 ml 390 ml -199 ml -420 ml Intake Oral 45 ml 500 ml 100 ml 0 ml IV Total 525 ml 450 ml 41 ml 0 ml Output Urine Total 350 ml 560 ml 340 ml 420 ml Stool Total 0 ml # Voids 1 1 1 # Bowel Movements 0 0 Result Diagram: 04/08/16 0306 04/09/16 0320 Objective Remarks awake feels and looks well nl speech Assessment and Plan Assessment and Plan imp na 134 changing over to vpa but will stay on tegretol until depakote level up if mri neg ok dc eeg nl continue with depakote 1000mg hs call dr johnson sunday for level check and taper off cbz then doing fine Ruben Serrano MD Apr 09, 2016 08:22
--- NOTE | 2016-04-09 08:42 | RADRPT ---
EXAM DATE/TIME: 04/08/2016 10:00 [facility] COMPARISON: MRI BRAIN W/O CONTRAST, November 02, 2015, 14:30. INDICATIONS : Seizures. CONTRAST: 12 cc Omniscan (gadodiamide) IV MEDICAL HISTORY : Chronic obstructive pulmonary disease. Osteoarthritis. SURGICAL HISTORY : Cholecystectomy. ENCOUNTER: Initial ACUITY: 2 day PAIN SCORE: 0/10 LOCATION: cranial TECHNIQUE: Multiplanar, multisequence MRI of the brain was performed both prior to and following the administrat ion of paramagnetic contrast. FINDINGS: CEREBRUM: The ventricles are normal for age. No evidence of midline shift, mass lesion, hemorrhage or acute in farction. No extraaxial fluid collections are seen. The pituitary gland and suprasellar cistern are normal in configuration. WHITE MATTER: No significant signal abnormalities are seen in the white matter. POSTERIOR FOSSA: The cerebellum and brainstem are intact. The 4th ventricle is midline. The cerebellopontine angle is unremarkable. The cerebellar tonsils are normal in position. DIFFUSION IMAGING: No focal areas of restricted diffusion are seen. No evidence of acute infarction. EXTRACRANIAL: The visualized portions of the orbits and paranasal sinuses are unremarkable. POST-CONTRAST: No abnormal areas of parenchymal or dural enhancement. No evidence of blood-brain barrier breakdown. Compared to the prior study there have been no new or significant changes. CONCLUSION: Unremarkable and stable MRI of the brain compared to the prior examination. Julián Richardson MD on April 09, 2016 at 8:39 Board Certified Radiologist. This report was verified electronically.
[2016-04-09] MEDS ORDERED: cefTRIAXone INJ 1,000 MG in SODIUM CHLORIDE 0.9% INJ 100 ML IV SCH (09:45)
[2016-04-09] MEDS ORDERED: CIPROFLOXACIN 400 MG PREMIX 200 ML IV SCH (11:00)
--- NOTE | 2016-04-09 11:42 | HHI.PR ---
Subjective Remarks Patient denies chest pain or stress of breath the Denies nausea vomiting, abdominal pain Denies fevers or chills States her low back is hurting Pain is controlled with IV morphine. Objective Vitals Vital Signs Date Time Temp Pulse Resp B/P Pulse Ox O2 Delivery O2 Flow Rate FiO2 04/09/16 10:00 59 04/09/16 08:00 97.9 78 12 105/50 96 04/09/16 08:00 61 04/09/16 06:00 65 04/09/16 04:12 31 04/09/16 04:00 97.9 65 18 117/58 97 04/09/16 04:00 63 04/09/16 02:00 65 04/09/16 00:00 66 04/09/16 00:00 97.8 66 12 130/60 99 04/08/16 22:00 67 04/08/16 20:00 66 04/08/16 20:00 98.1 66 28 148/58 98 04/08/16 18:00 66 04/08/16 17:43 22 04/08/16 16:00 98.3 71 18 113/54 98 04/08/16 16:00 71 04/08/16 14:00 67 04/08/16 12:00 97.8 56 18 132/60 98 04/08/16 12:00 64 I/O 04/08/16 04/08/16 04/08/16 04/09/16 04/09/16 04/09/16 07:00 15:00 23:00 07:00 15:00 23:00 Intake Total 570 ml 950 ml 141 ml 0 ml Output Total 350 ml 560 ml 340 ml 420 ml Balance 220 ml 390 ml -199 ml -420 ml Intake Oral 45 ml 500 ml 100 ml 0 ml IV Total 525 ml 450 ml 41 ml 0 ml Output Urine Total 350 ml 560 ml 340 ml 420 ml Stool Total 0 ml # Voids 1 1 1 # Bowel Movements 0 0 Result Diagram: 04/08/16 0306 04/09/16 0320 Imaging Last Impressions Brain MRI 04/08/16 1616 Signed Impressions: Service Date/Time: Friday, April 08, 2016 10:00 - CONCLUSION: Unremarkable and stable MRI of the brain compared to the prior examination. Julián Richardson MD Chest X-Ray 04/07/16 0000 Signed Impressions: Service Date/Time: Thursday, April 07, 2016 12:31 - CONCLUSION: No acute disease. Wade Nieves MD FACR Objective Remarks GENERAL: Well-nourished, well-developed patient. SKIN: Warm and dry. HEAD: Normocephalic. EYES: No scleral icterus. No injection or drainage. NECK: Supple, trachea midline. No JVD or lymphadenopathy. CARDIOVASCULAR: Regular rate and rhythm without murmurs, gallops, or rubs. RESPIRATORY: Breath sounds equal bilaterally. No accessory muscle use. GASTROINTESTINAL: Abdomen soft, non-tender, nondistended. MUSCULOSKELETAL: No cyanosis, or edema. BACK: Nontender without obvious deformity. No CVA tenderness. Procedures none Medications and IVs Current Medications Medications (Trade) Dose Ordered Sig/Julieta Route Start Time Stop Time Status Last Admin (TEGretol) 400 mg Q12HR PO 04/07/16 21:00 04/09/16 07:48 (Depakote Er) 1,000 mg HS PO 04/07/16 21:00 04/08/16 21:02 (NS Flush) 2 ml UNSCH PRN IV FLUSH 04/07/16 17:15 (NS Flush) 2 ml BID IV FLUSH 04/07/16 21:00 04/09/16 07:48 (Tylenol) 650 mg Q6H PRN PO 04/07/16 17:15 (Pepcid Inj) 20 mg Q12HR IV PUSH 04/07/16 21:00 04/08/16 20:58 (Zofran Inj) 4 mg Q6H PRN IV 04/07/16 17:15 (Reglan Inj) 10 mg Q6H PRN IV 04/07/16 17:15 (Colace) 100 mg BID PO 04/07/16 21:00 04/09/16 07:47 (Ambien) 5 mg HS PRN PO 04/07/16 17:15 04/08/16 21:10 (Lovenox Inj) 30 mg Q24H SQ 04/07/16 18:00 04/08/16 17:50 Miscellaneous Information 1 Q361D XX 04/07/16 17:15 (Chlorhexidine 2% Cloth) 3 pack Taper DAILY@04 TOP 04/08/16 04:00 04/04/17 03:59 04/09/16 03:36 (Chlorhexidine 2% Cloth) 3 pack UNSCH PRN TOP 04/07/16 17:15 (Sodium Chloride) 3 gm QID PO 04/07/16 21:00 04/09/16 07:48 Morphine Sulfate 4 mg 4 mg Q2H PRN IV 04/08/16 21:15 04/09/16 08:06 (Cipro 400 Mg Premix) 200 ml @ 200 mls/hr Q8H IV 04/09/16 11:00 04/09/16 11:13 Urinary Catheter: No Vascular Central Line Catheter: No A/P Problem List: (1) Seizures ICD Code: R56.9 Status: Resolved Plan: No further seizures - likely related to acute hyponatremia. CT head - No acute disease Neurology consulted. EEG and MRI unremarkable continue anticonvulsants as per neurology -patient initially treated with Tegretol and Depakote. PT evaluation ---> Ok to Dc home. no need for rehab OOB to chair (2) Hyponatremia ICD Code: E87.1 Status: Acute Plan: Appreciate nephrology recommendations. Continue to hold Prozac since it can cause hyponatremia - Dc'd 04/08. Continue to monitor BMP. NS discontinued 04/08. Will place patient on fluid restriction Continue salt tablets. Psych consultation to advise on management of depression since Prozac can cause hyponatremia. Sodium improving now 134. (3) Depression ICD Code: F32.9 Status: Acute Plan: Patient has been on Prozac which can cause hyponatremia. Patient is not currently on this and sodium is improving. Will consult psychiatry to help with an alternative medication to control the patient's depression. (4) Chronic back pain ICD Code: M54.9 Status: Acute Plan: DC IV morphine - start on oral percocet. Patient needs to follow-up with pain management doctor to control the patient's low back pain. Assessment and Plan DVT prophylaxis: Lovenox SQ GI prophylaxis: Pepcid Discharge Planning Pending psych consultation. DC possible later today after patient being seen by psychiatry. Problem Qualifiers (1) Depression: Qualified Code: F32.9 - Depression, unspecified depression type (2) Chronic back pain: Qualified Code: M54.40 - Chronic midline low back pain with sciatica, sciatica laterality unspecified Colby Bernard MDb 12, 2017 11:42
[2016-04-09] MEDS ORDERED: CARB200T PO (11:45)
[2016-04-09] MEDS ORDERED: DEPA500T3 PO (11:45)
[2016-04-09] MEDS ORDERED: CEFU250T PO (11:49)
[2016-04-09] MEDS ORDERED: PERC5TAB12 PO (11:49)
--- NOTE | 2016-04-09 11:49 | HHI.DCPOC ---
Discharge Care Plan Diagnosis: (1) Hyponatremia (2) Hypokalemia (3) Seizures (4) Depression (5) Chronic back pain Goals to Promote Your Health * To prevent worsening of your condition and complications * To maintain your health at the optimal level Directions to Meet Your Goals Take your medications as prescribed Follow your dietary instruction Follow activity as directed Keep your appointments as scheduled Take your immunizations and boosters as scheduled If your symptoms worsen call your PCP, if no PCP go to Urgent Care Center or Emergency Room Smoking is Dangerous to Your Health. Avoid second hand smoke Call the 24-hour hour crisis hotline for domestic abuse at Colby Bernard MD Apr 09, 2016 11:49
--- NOTE | 2016-04-09 13:02 | HHI.NPPN ---
Subjective History of Present Illness 66-year-old female with past medical history of seizure disorder, history of depression, chronic obstructive pulmonary disease, and history of chronic hyponatremia who came to the hospital with seizure. I was called to see the patient because of a low sodium level. The patient has a past history of low sodium and her sodium was as low as 116 in October of last year and this time she came with 124 sodium and it improved to 132. Additional Remarks Patient is alert, no more seizure, no headache or dizziness. Review of Systems General Constitutional: Fatigue Objective Data Data 04/08/16 04/09/16 19:00 07:00 Intake Total 950 ml 141 ml Output Total 560 ml 760 ml Balance 390 ml -619 ml Intake Oral 500 ml 100 ml IV Total 450 ml 41 ml Output Urine Total 560 ml 760 ml # Voids 2 # Bowel Movements 0 Vital Signs Date Time Temp Pulse Resp B/P Pulse Ox O2 Delivery O2 Flow Rate FiO2 04/09/16 12:44 20 04/09/16 10:00 59 04/09/16 08:00 97.9 78 12 105/50 96 04/09/16 08:00 61 04/09/16 06:00 65 04/09/16 04:00 97.9 65 18 117/58 97 04/09/16 04:00 63 04/09/16 02:00 65 04/09/16 00:00 66 04/09/16 00:00 97.8 66 12 130/60 99 04/08/16 22:00 67 04/08/16 20:00 66 04/08/16 20:00 98.1 66 28 148/58 98 04/08/16 18:00 66 04/08/16 17:43 22 04/08/16 16:00 98.3 71 18 113/54 98 04/08/16 16:00 71 04/08/16 14:00 67 -: 04/08/16 0306 04/09/16 0320 Physical Exam General Appearance: No Acute Distress, Comfortable Eyes Eye Exam: Pupils Reactive Throat Throat Exam: Oral Mucosa [place] & Moist Pulmonary Resp Exam: Breath Sounds Equal, No Distress, Rhonchi, Decreased Bases Cardiology CV Exam: Regular, Normal Sinus Rhythm Gastrointestinal/Abdomen GI Exam: Soft, Non-Tender, Bowel Sounds Present Extremeties Extremities Exam: No Edema Neurologic Neuro Exam: Alert, Awake, Oriented Assessment/Plan Electrolyte Assessment: Hyponatremia Problem List: (1) Depression (2) Seizures (3) Chronic back pain (4) Hyponatremia Plan Patient has now Na. of 134. Need to restrict fluid intake and also waiting Psych. to see. Avoid Prozac. Told the patient to restrict fluid. Can be discharged from Nephrology. To follow from her PCP. Problem Qualifiers (1) Depression: Qualified Code: F32.9 - Depression, unspecified depression type (2) Chronic back pain: Qualified Code: M54.40 - Chronic midline low back pain with sciatica, sciatica laterality unspecified Aisha Vides MD Apr 09, 2016 13:02
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
[2016-04-09] MEDS ORDERED: REME15TA PO (16:03)
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
[2016-04-09] MEDS ORDERED: CEFUROXIME AXETIL 250 MG TAB PO SCH (21:00)
== END 2016-04-09 17:15 | disposition home or self-care (01) | DRG 101 ==
LOC: NEDAMB 11:05 → NEDA 13:17 → NEDH 17:35 → HIMW 19:05
PROVIDERS: ADMIT Hospitalist; ATTEND Hospitalist
DX: G40.909 Epilepsy, unspecified, not intractable, without status epilepticus (principal); E22.2 Syndrome of inappropriate secretion of antidiuretic hormone; F33.1 Major depressive disorder, recurrent, moderate; J44.9 Chronic obstructive pulmonary disease, unspecified; R11.10 Vomiting, unspecified; Z99.81 Dependence on supplemental oxygen; M19.90 Unspecified osteoarthritis, unspecified site; H91.90 Unspecified hearing loss, unspecified ear; F17.210 Nicotine dependence, cigarettes, uncomplicated; I10 Essential (primary) hypertension; M54.40 Lumbago with sciatica, unspecified side; G89.29 Other chronic pain
CPT/HCPCS: 70553; 71010; 80048; 80053; 80156; 81001; 82948; 84443; 85025; 87077; 87086; 87186; 87641; 93005; 95819; 96374; A9579; J0744; J1650; J1953; J2270; J2405; J7030

== ENCOUNTER 2016-07-09 10:44 | Emergency (ER) | payer MEDICARE ==
[~2016-07-09 10:44] MED LIST changes: -ACETAMIN-HYDROcod 325-5 MG PO; -AMBI5TAB PO; +CARB200T PO; +CEFU250T PO; +DEPA500T3 PO; -DOCU1CAP39 PO; -FLUO20TA20 PO; -MEGE40SU PO; +PERC5TAB12 PO; -PHEN100 PO; +REME15TA PO; -VANC500 PO
[2016-07-09 10:50] VITALS: BP 137/62; PULSE 65; RESP 18; TEMP 98.2; O2SAT 95
[2016-07-09 10:58] VITALS: O2SAT 95
[2016-07-09] MEDS ORDERED: methylPREDNISolone SOD SUCC 125 MG/2 ML VIAL IVP ONE (11:00)
[2016-07-09] MEDS ORDERED: SODIUM CHLORIDE 0.9% FLUSH 10 ML FLUSH IVF PRN (11:00)
--- NOTE | 2016-07-09 11:00 | PD ---
HPI Chief Complaint: Respiratory Symptoms Time Seen by Provider: 10:48 Travel History International Travel<30 days: No Contact w/Intl Traveler<30days: No Traveled to known affect area: No History of Present Illness HPI The patient was seen and examined in the presence of the nurse. This patient complains of shortness of breath. She has history of COPD and is oxygen dependent. She still smokes a pack-a-day. Severity is moderate. No alleviating factors. Denies fever or productive cough. She has a chronic dry cough. Has not had any chest pain. Duration one day. PFSH Past Medical History Arthritis: Yes Anxiety: No Depression: Yes Cancer: No Cardiovascular Problems: No COPD: Yes Diminished Hearing: Yes Endocrine: No Gastrointestinal Disorders: Yes Genitourinary: No Immune Disorder: No Musculoskeletal: No Neurologic: Yes Psychiatric: Yes Reproductive: No Respiratory: Yes (COPD) Seizures: Yes Tetanus Vaccination: > 5 Years Influenza Vaccination: No ?: Not Past Surgical History Abdominal Surgery: Yes (gallbladder removal ) Cholecystectomy: Yes (LAP) Other Surgery: Yes Social History Alcohol Use: Yes (SOCIAL) Tobacco Use: Yes (1 PPD ) Substance Use: No Allergies-Medications (Allergen,Severity, Reaction): Coded Allergies: No Known Allergies (Unverified , 07/09/16) Reported Meds & Prescriptions Reported Meds & Active Scripts Active Ipratropium Neb (Ipratropium [place]) 0.5 Mg/2.5 Ml Amp 0.5 Mg NEB Q12HR NEB Albuterol Neb (Albuterol Sulfate) 2.5 Mg/3 Ml Neb 2.5 Mg NEB Q4HR NEB PRN Remeron (Mirtazapine) 15 Mg Tab 15 Mg PO HS Carbamazepine 200 Mg Tab 400 Mg PO Q12HR Depakote ER (Divalproex Sodium) 500 Mg Alex 1,000 Mg PO HS Review of Systems General / Constitutional: No: Fever Eyes: No: Visual changes HENT: No: Headaches Cardiovascular: No: Chest Pain or Discomfort Respiratory: Positive: Cough, Shortness of Breath, Wheezing Gastrointestinal: No: Abdominal Pain Genitourinary: No: Dysuria Musculoskeletal: No: Pain Skin: No Rash Neurologic: No: Weakness Psychiatric: No: Depression Endocrine: No: Polydipsia Hematologic/Lymphatic: No: Easy Bruising Physical Exam Narrative GENERAL: Well-nourished, well-developed patient in no apparent distress. SKIN: Focused skin assessment reveals no rash and nodules. Skin is Warm and dry. HEAD: Atraumatic. Normocephalic. EYES: Pupils equal and round. No scleral icterus. No injection or drainage. ENT: No nasal bleeding or discharge. Mucous membranes pink and moist. NECK: Trachea midline. No JVD. CARDIOVASCULAR: Regular rate and rhythm. No murmur appreciated. RESPIRATORY: No accessory muscle use. Diminished breath sounds throughout with minor rhonchi. Breath sounds equal bilaterally. GASTROINTESTINAL: Abdomen soft, non-tender, nondistended. Hepatic and splenic margins not palpable. MUSCULOSKELETAL: No obvious deformities. No clubbing. No cyanosis. No edema. NEUROLOGICAL: Awake and alert. No obvious cranial nerve deficits. Motor grossly within normal limits. Normal speech. PSYCHIATRIC: Appropriate mood and affect; insight and judgment normal. Data Data Last Documented VS Vital Signs Date Time Temp Pulse Resp B/P Pulse Ox O2 Delivery O2 Flow Rate FiO2 07/09/16 11:15 92 Nasal Cannula 2.00 07/09/16 10:50 98.2 65 18 137/62 Orders Iv Access Insert/Monitor (07/09/16 10:56) Electrocardiogram (07/09/16 10:56) Ecg Monitoring (07/09/16 10:56) Oximetry (07/09/16 10:56) Oxygen Administration (07/09/16 10:56) Chest, Single Ap (07/09/16 10:56) Sodium Chloride 0.9% Flush (Ns Flush) (07/09/16 11:00) Methylprednisolone So Succ Inj (Solumedr (07/09/16 11:00) Albuterol-Ipratropium Neb (Duoneb Neb) (07/09/16 11:00) MDM Medical Decision Making Medical Screen Exam Complete: Yes Emergency Medical Condition: Yes Medical Record Reviewed: Yes Differential Diagnosis Differential diagnosis includes COPD, asthma, pneumonia, bronchitis, CHF Narrative Course I have reviewed the patient's electronic medical record. IV placed I gave her multiple nebulizer treatments and IV Solu-Medrol I reviewed her chest x-ray which shows COPD changes but nothing acute I reviewed her EKG which shows sinus rhythm but no ST elevation or ectopy Extended cardiac monitoring reveals sinus rhythm without ectopy Saturations are 97% on her usual 2 L She feels much better on recheck She asked for a nebulizer prescription I did write her a prescription for nebulizer and both albuterol and Atrovent medications but discussed that her smoking cessation is likely more important Diagnosis Primary Impression: COPD with exacerbation Additional Instructions: The patient was advised to follow up with their physician and return if they worsen. Stop smoking Med/Other Pt SpecificInfo: Prescription(s) given Scripts Ipratropium Neb 0.5 Mg/2.5 Ml Amp0.5 Mg NEB Q12HR NEB #60 NEBULE Ref 0 Prov:Jose Luis Landry MD 07/09/16 Albuterol Neb 2.5 Mg/3 Ml Neb2.5 Mg NEB Q4HR NEB PRN (SHORTNESS OF BREATH) #60 NEBULE Ref 0 Prov:Jose Luis Landry MD 07/09/16 Disposition: 01 DISCHARGE HOME Condition: Stable Jose Luis Landry MD July 09, 2016 11:00
[2016-07-09 11:15] VITALS: O2SAT 92
[2016-07-09] MEDS: RESP: ALBUTEROL 2.5 MG/IPRATROPIUM 0.5 MG NEB (SCH) INH ×2 (11:23→11:24)
--- NOTE | 2016-07-09 11:28 | RADHPO ---
EXAM DATE/TIME: 07/09/2016 11:08 [place] COMPARISON: CHEST SINGLE AP, April 07, 2016, 12:31. INDICATIONS : Short of breath MEDICAL HISTORY : Chronic obstructive pulmonary disease. SURGICAL HISTORY : None. ENCOUNTER: Initial ACUITY: 1 day PAIN SCORE: 0/10 LOCATION: Bilateral chest FINDINGS: A single view of the chest demonstrates hyperinflation which can be seen with COPD. No infiltrates a re seen. Heart is normal in size. The mediastinal contours are unremarkable. Osseous structures are intact. CONCLUSION: Hyperinflation which can be seen with COPD. No acute cardiopulmonary disease and no evidence for an infiltrate. Brandyn Lewis MD on July 09, 2016 at 11:25 Board Certified Radiologist. This report was verified electronically.
[2016-07-09] MEDS ORDERED: IPRA0.02 NEB (12:08)
[2016-07-09] MEDS ORDERED: ALBU0.08 NEB (12:08)
[2016-07-09 12:31] VITALS: BP 117/44; PULSE 69; RESP 16; O2SAT 95
--- NOTE | 2016-07-10 15:19 | EKG ---
Date Performed: 07/09/2016 Time Performed: 10:48:20 PTAGE: 66 years EKG: Sinus rhythm . Borderline ECG PREVIOUS TRACING : 04/07/2016 11.47 Since previous tracing, no significant change noted DOCTOR: Emmanuel Cannon Interpretating Date/Time 07/10/2016 15:18:23
== END 2016-07-09 12:35 | disposition home or self-care (01) ==
LOC: PHED 10:44
DX: J44.1 Chronic obstructive pulmonary disease with (acute) exacerbation (principal); R94.31 Abnormal electrocardiogram [ECG] [EKG]; F17.200 Nicotine dependence, unspecified, uncomplicated; H91.90 Unspecified hearing loss, unspecified ear; Z99.81 Dependence on supplemental oxygen; Z87.09 Personal history of other diseases of the respiratory system; Z87.39 Personal history of other diseases of the musculoskeletal system and connective tissue; Z86.59 Personal history of other mental and behavioral disorders; Z87.19 Personal history of other diseases of the digestive system; Z86.69 Personal history of other diseases of the nervous system and sense organs
CPT/HCPCS: 71010; 93005; 94640; 94664; 96374; 99285; J2930

== ENCOUNTER 2017-07-19 09:04 | Day surgery (SDC) | payer MEDICARE ==
[~2017-07-19] VITALS: Ht 167.6 cm; Wt 58.3 kg
[~2017-07-19 09:04] MED LIST changes: +ALBU0.08 NEB; -CEFU250T PO; +IPRA0.02 NEB; -PERC5TAB12 PO
[2017-07-19 09:45] VITALS: BP 132/54; PULSE 74; RESP 18; O2SAT 93
[2017-07-19] MEDS ORDERED: SODIUM CHLORID 0.9% 500 ML IV PRN (09:45)
[2017-07-19] MEDS ORDERED: ceFAZolin 2 GM PREMIX 50 ML IV SCH (09:45)
[2017-07-19] MEDS ORDERED: CHLORHEXIDINE GLUCONATE 2 % 1 PACK (2 CLOTHS) TOPICAL PRN (09:45)
[2017-07-19] MEDS ORDERED: CHLORHEXIDINE GLUCONATE 2 % 1 PACK (2 CLOTHS) TOPICAL SCH (09:45)
[2017-07-19] MEDS ORDERED: METOPROLOL TARTRATE 25 MG TAB PO PRN (09:45)
[2017-07-19] MEDS ORDERED: INSULIN HUMAN REGULAR 1,000 UNITS/10 ML VIAL SQ PRN (09:45)
[2017-07-19] MEDS ORDERED: LACTATED RINGER'S 1000 ML IV PRN (09:45)
[2017-07-19] MEDS ORDERED: POVIDONE IODINE 5% (ANTISEPSIS KIT) 4 APPLICATIONS EACH NARE SCH (09:45)
[2017-07-19] MEDS ORDERED: SODIUM CHLORID 0.9% 500 ML INJ 500 ML IV SCH (09:45)
[2017-07-19] MEDS ORDERED: MUPIROCIN 2% OINT 1 APPLIC/GM SYR NASAL SCH (09:45)
[2017-07-19] MEDS ORDERED: LORazepam 1 MG TAB SL SCH (09:45)
[2017-07-19] MEDS ORDERED: UMEC1AER INH (09:45)
[2017-07-19] MEDS ORDERED: POVIDONE IODINE 5% (ANTISEPSIS KIT) 4 APPLICATIONS EACH NARE PRN (09:45)
[2017-07-19] MEDS ORDERED: PRED5TAB PO (09:45)
[2017-07-19] MEDS ORDERED: SODI1TAB PO (09:45)
[2017-07-19 09:59] LABS: AUTOMATED NEUTROPHIL # 6.3 TH/MM3 (1.8-7.7); BASOPHIL # 0.1 TH/MM3 (0-0.2); EOSINOPHIL # 0.1 TH/MM3 (0-0.4); EOSINOPHIL % 1.3 % (0.0-4.0); HEMATOCRIT 39.9 % (35.0-46.0); HEMOGLOBIN 13.5 GM/DL (11.6-15.3); LYMPH % 25.8 % (9.0-44.0); LYMPHOCYTE # 2.7 TH/MM3 (1.0-4.8); MEAN CELL VOLUME 88.7 FL (80.0-100.0); MEAN CORPUSCULAR HGB CONC 33.8 % (32.0-36.0); MEAN PLATELET VOLUME 6.9 FL (7.0-11.0); MONO % 11.8 % (0.0-8.0); MONOCYTE # 1.2 TH/MM3 (0-0.9); NEUT % 60.1 % (16.0-70.0); PLATELET COUNT 342 TH/MM3 (150-450); RED CELL DISTRIBUTION WIDTH 14.5 % (11.6-17.2); WHITE BLOOD COUNT 10.6 TH/MM3 (4.0-11.0)
[2017-07-19 10:21] LABS: BICARBONATE 30.4 MEQ/L (21.0-32.0); CALCIUM 8.9 MG/DL (8.5-10.1); CREATININE 0.83 MG/DL (0.50-1.00)
[2017-07-19 10:56] LABS: BANDS 1 % (0-6); BASOPHILS 1 % (0-2); LYMPHOCYTES 31 % (9-44); METAMYELOCYTES 1 % (0-1); MONOCYTES 8 % (0-8); MYELOCYTES 2 % (0-0); NEUTROPHIL # MANUAL DIFF 6.3 TH/MM3 (1.8-7.7); POLYS (SEG NEUTROPHILS) 55 % (16-70)
[2017-07-19] MEDS ORDERED: HEPARIN-NS/PF INJ 1,000 ML ONE (11:55)
[2017-07-19] MEDS ORDERED: ISOPROTERENOL INJ PREMIX 50 ML IV ONE (11:58)
--- NOTE | 2017-07-19 12:44 | CATHPROC ---
[facility] HIS Report Study Information Study Number Admission Scheduled Start Study Start [id number] Jul 19 2017 9:04AM 07/19/2017 Jul 19 2017 11:23AM [place] [facility] Electrophysiology Study Admit Source Facility Department Other [facility] - Partition Assembly Machine Operator Physician and Clinical Staff Initial Gregory Mora Jackscrew Worker Arielle Tamayo,RT(R) TECH2 Other Anesthesia, VPK TEACHER Recorder Joana Antonio BSN Recorder Argenis Bryan,SURAJ Scrub Osei Hill,RT(R) Equipment Time Cyber Ops Planner Description Size Mfg Part Number Used/Scraped [id number] 11:25 [employer] INDUSTRIES PACK, CCL CUSTOM * Used *[id number] 11:25 [employer] PACER VIDAL, LIMB * 2530 *[id number] Used [id number] 11:25 [employer] BLANKET,WARM AIR CCL * Used *[id number] 11:25 [employer] CATHETER, JSN, QUAD FR 5 Used *[id number] 11:25 [employer] CATHETER, JSN, QUAD FR 5 Used *[id number] 11:25 [employer] CATHETER, JSN, QUAD FR 5 Used *[id number] [id number] 11:25 [employer] CATHETER, JSN, QUAD FR 5 Used *[id number] 11:25 [employer]ICAL ELECTRODE KIT, [place] X SURFACE * Used *[id number] 112736 11:25 [employer] SHEATH, EPS, FR5 FAST CATH FR 5 Used *[id number] 11:25 [employer] SHEATH, EPS, FR5 FAST CATH FR 5 Used *[id number] [id number] 11:26 [employer] SHEATH, EPS, FR5 FAST CATH FR 5 Used *[id number] 11:26 [employer] SHEATH, EPS, FR6 FAST CATH FR 6 Used *[id number] [facility] PAD, ELECTROSURGICAL 11:25 * [id number] *[id number] Used SURGICAL GROUNDING (BLUE) Labs Hgb (g/dl) Hct (%) RBC (MIL/MM3) WBC (l/cumm) Platelets (thousands) 11.60-17.00 35.00-51.00 4.00-5.90 4.00-11.00 150.00-450.00 13.5 39.9 4.5 10.6 342 Glucose (mg/dl) BUN (mg/dl) Creatinine (mg/dl) BUN:Creatinine (1:x) 74.00-106.00 7.00-18.00 0.50-1.30 10.00-20.00 79 14 0.8 17.5 Na (meq/l) K (meq/l) Cl (meq/l) CO2 (mmol/L) Ca (mg/dl) 136.00-145.00 3.50-5.10 98.00-107.00 21.00-32.00 8.50-10.10 134 4.3 95 30.4 8.9 PT (sec) PTT (sec) INR (PTT:PT) 9.80-11.60 24.30-30.10 0.90-1.10 10 25 1 CPK-MB (ng/ML) 0.50-3.60 Not Drawn Medication Medication Total Dose (Bolus/Oral) Medication Total Dosage/Unit 1% XYLOCAINE 20 mL Medications (Bolus/Oral) Medication Time Given Dosage/Unit Administered By Reason 1% XYLOCAINE 07/19/2017 12:13:04 PM 20 mL Gregory Still 20 mL 1% XYLOCAINE given in lab by Gregory Still in Right Groin via Subcutaneous. Ordered by Franco Still. Medication (Drip) Medication Time Given Dosage/Unit Concentration/Unit Diluent (ml) Solution ISUPREL 07/19/2017 12:30:10 PM 4 mcg/min 1 mg 250 NaCl .9 4 mcg/min ISUPREL given in lab by Anesthesia, VPK TEACHER via Peripheral IV. Pump/Drip Flow = 60 ml/hr using NaCl .9 with a concentration of 1 mg in 250 ml. Ordered by Gregory Still. ISUPREL DRIP STOPPED 07/19/2017 12:33:07 PM 0 units/hr 0 0 units/hr ISUPREL DRIP STOPPED given in lab by Anesthesia, VPK TEACHER. Pump/Drip Flow = 0 ml/hr using [Yenyn ution Name]. Ordered by Gregory Still. IV Solutions 07/19/2017 11:46:57 AM 50 mL (IV) NaCl .9 IV Solutions given in lab by Anesthesia, VPK TEACHER in Right Antecubital via Peripheral IV. Pump/Drip Flow using NaCl .9. Ordered by Gregory Still. IV Solutions 07/19/2017 11:47:14 AM 50 mL (IV) NaCl .9 IV Solutions given in lab by Anesthesia, VPK TEACHER in Left Antecubital via Peripheral IV. Pump/Drip Flow u sing NaCl .9. Ordered by Gregory Still. Initial Case Assessment Cardiovascular HR Rhythm NIBP Chest Pain 62 sr 148/67 0 Edema Present Skin color Skin None Normal Warm Dry Circulatory - Lower Extremities Color Lower Right Color Lower Left Normal Normal Neurological State Oriented to time-place- Alert Moves all extremities person Respiration - General Respiration Rate SpO2 (%) O2 (lpm) (B/min) 16 100 0 Chronological Log Time Study Chronological Log 11:35:21 Patient arrived via Bed. 11:35:26 Patient Name, D.O.B, / Armband Verified By R.N. 11:37:32 Consent signed by the physician and the patient and verified by the Partition Assembly Machine Operator staff. 11:37:41 Patient has been NPO for More than 6Hrs. 11:38:21 Patient Warmer Placed on the Table. 11:38:24 Disposable Defibrillator Pads Placed On Patient. 11:39:26 Dvaid Prominences Protected 11:40:35 A # 20 IV was noted in the Antecubital (left). Grade = 0 11:40:47 A # 20 IV was noted in the Antecubital (right). Grade = 0 11:45:35 Anesthesia at bedside. Assumes care of patient. SEE RECORDS FOR ALL MEDS AND VITALS DURING PROCEDURE IV Solutions given in lab by Anesthesia, VPK TEACHER in Right Antecubital via Peripheral IV. Pump/Drip Flow using NaCl .9. 11:46:57 Ordered by Gregory Still. IV Solutions given in lab by Anesthesia, VPK TEACHER in Left Antecubital via Peripheral IV. Pump/Drip Flow using NaCl .9. 11:47:14 Ordered by Gregory Still. 11:47:46 Skin Breakdown- mid chest biopsy site, scabbed 11:49:23 History and physical on the chart or being dictated. Assessment: Initial Case, HR=62 BPM, Rhythm=sr, HBCY=357/67 mmhg, Chest Pain=0, Edema=None, Col or=Normal, Skin = Warm, Dry Lower Right Extremities: Color=Normal 11:49:27 Lower Left Extremities: Color=Normal Neurological: State=Alert, Ox3, QUICK Respiration: Resp=16 B/min, FeE4=214 %, O2=0 lpm Time Out. Correct patient, procedure, procedure equipment, site and side verified with physicia n present. Time 12:11:50 concurred by MD, individual staff and VPK TEACHER. Time Out #2 - Consents verified, patient in correct position, all results are labled and displa yed, safety precautions 12:11:59 taken, antibiotics administered. Time out concurred by MD, individual staff and VPK TEACHER in procedu re 12:12:45 Case Start 12:13:04 20 mL 1% XYLOCAINE given in lab by Gregory Still in Right Groin via Subcutaneous. Ordered b y rGegory Still. 12:13:56 Vascular access was obtained in the Fem Vein (right). 12:13:58 Vascular access was obtained in the Fem Vein (right). 12:13:59 Vascular access was obtained in the Fem Vein (right). 12:14:00 Vascular access was obtained in the Fem Vein (right). 12:14:11 A SHEATH, EPS, FR5 FAST CATH FR 5 was advanced into the Fem Vein (right) using the Modifie d Seldinger technique. 12:15:03 A SHEATH, EPS, FR5 FAST CATH FR 5 was advanced into the Fem Vein (right) using the Modifie d Seldinger technique. 12:15:06 A SHEATH, EPS, FR5 FAST CATH FR 5 was advanced into the Fem Vein (right) using the Modifie d Seldinger technique. 12:15:08 A SHEATH, EPS, FR6 FAST CATH FR 6 was advanced into the Fem Vein (right) using the Modifie d Seldinger technique. A CATHETER, JSN, QUAD FR 5 was advanced vis Fem Vein (right) and placed in the CS. Placement w as visually 12:17:15 confirmed under fluoroscopy. A CATHETER, JSN, QUAD FR 5 was advanced vis Fem Vein (right) and placed in the HIS. Placement was visually 12:17:25 confirmed under fluoroscopy. A CATHETER, JSN, QUAD FR 5 was advanced vis Fem Vein (right) and placed in the HRA. Placement was visually 12:17:29 confirmed under fluoroscopy. A CATHETER, JSN, QUAD FR 5 was advanced vis Fem Vein (right) and placed in the RVA. Placement was visually 12:17:35 confirmed under fluoroscopy. 12:19:59 EP STUDY IN PROGRESS 4 mcg/min ISUPREL given in lab by Anesthesia, VPK TEACHER via Peripheral IV. Pump/Drip Flow = 60 ml/h r using NaCl .9 with 12:30:10 a concentration of 1 mg in 250 ml. Ordered by Gregory Still. 0 units/hr ISUPREL DRIP STOPPED given in lab by Anesthesia, VPK TEACHER. Pump/Drip Flow = 0 ml/hr usi ng [Solution Name]. 12:33:07 Ordered by Gregory Still. 12:39:03 EP study complete 12:39:23 EP Procedure was performed. 12:39:29 Patient will be undergoing addtional procedure while in slab grinder 12:40:[address] 12:44:05 quads removed End Study - Contrast Media Used In Study Contrast Total Opened (mL) Total Used (mL) Total Wasted (mL) Omnipaque 0 0 0 End Study - Maximum Contrast Load Max Contrast Load (mL) 364.5 End Study - Radiation Exposure Fluoro Time (minutes) 1.7 End Study - Patient Disposition Complications No
--- NOTE | 2017-07-19 13:18 | CATHPROC ---
[facility] HIS Report Study Information Study Number Admission Scheduled Start Study Start [id number] Jul 19 2017 9:04AM 07/19/2017 Jul 19 2017 12:45PM [place] [facility] Cardiac Pacer/ICD Admit Source Facility Department Other [facility] - Side Laster Physician and Clinical Staff Initial Gregory Mora In Home Tutor Arielle Tamayo,RT(R) TECH2 Other Anesthesia, CAMP HEAD COUNSELOR Recorder Joana Antonio BSN Scrub Osei Hill,RT(R) Equipment Time Dental Financial Coordinator Description Size Mfg Part Number Used/Scraped DERMABOND, ADHESIVE SKIN [id number] 12:49 CORDIS/PACER * Used GLUE MINI *[id number] DERMABOND, ADHESIVE SKIN [id number] 13:07 CORDIS/PACER * Used GLUE MINI *[id number] 13:05 [facility] [employer] RECORDER, [facility] CONFIRM RX [id number] Used Equipment Model, Serial, Lot Number and Expiration Data Description Model Number Serial Number Lot Number Expiration Date RECORDER, [place] CONFIRM RX [id number] 10-07-2018 Medication Medication Total Dose (Bolus/Oral) Medication Total Dosage/Unit 2% XYLOCAINE 20 mL Medications (Bolus/Oral) Medication Time Given Dosage/Unit Administered By Reason 2% XYLOCAINE 07/19/2017 12:53:04 PM 20 mL Gregory Still 20 mL 2% XYLOCAINE given in Left Chest via Subcutaneous. Medication (Drip) Medication Time Given Dosage/Unit Concentration/Unit Diluent (ml) Solution ANCEF 07/19/2017 12:40:24 PM 2 g 2 g ANCEF given by Gregory Still via Peripheral IV. Ordered by Gregory Still. Chronological Log Time Study Chronological Log 12:40:24 2 g ANCEF given by Gregory Still via Peripheral IV. Ordered by Gregory Still. 12:47:18 NOTE: This patient is undergoing an additional procedure while still in the Cardiac Cath L ab. 12:47:30 Initial procedure has been completed. Beginning additional procedure. 12:47:36 Anesthesia remains bedside. 12:47:53 2% CHLORHEXIDINE GLUCONATE WASH AND NASAL SWIPE DONE PRIOR TO PROCEDURE. 12:48:22 Left Upper Chest Prepped Times Two. Patient draped after 3 min dry time 12:52:49 Case Start 12:53:04 20 mL 2% XYLOCAINE given in Left Chest via Subcutaneous. 12:53:44 Surgical Incision Made. 12:54:17 A RECORDER, SJM CONFIRM RX was connected and placed in the pocket. 12:56:36 Dermabond applied 13:01:30 Case End 13:01:33 Sterile dressing applied to site 13:01:37 No case complications noted. 13:01:42 Bedside Report will be given. 13:01:44 Implantable Device card placed in patient's chart. 13:02:50 All sheaths removed; pressure applied to access site. 13:07:34 A Loop Recorder Inserted . 13:07:47 Implant Procedure was performed. 13:09:16 Sterile dressing applied to site 13:17:08 Patient moved to stretcher End Study - Contrast Media Used In Study Contrast Total Opened (mL) Total Used (mL) Total Wasted (mL) Omnipaque 0 0 0 End Study - Radiation Exposure Fluoro Time (minutes) 0.0 End Study - Sheaths Sheaths Pulled By Sheath Hold Time (min) Osei Hill 5 End Study - Patient Disposition Complications Transferred To Interventional Outcome No Telemetry Bed successful
[2017-07-19] MEDS ORDERED: CEPH-460 PO (13:27)
[2017-07-19] MEDS ORDERED: NORC5TAB PO (13:27)
[2017-07-19] MEDS ORDERED: MIDAZOLAM HCL 2 MG/2 ML VIAL ONE (13:28)
[2017-07-19] MEDS ORDERED: ONDANSETRON HCL 4 MG/2 ML VIAL IV PUSH PRN (13:30)
[2017-07-19] MEDS ORDERED: LIDOCAINE HCL 1% 50 ML VIAL INFIL PRN (13:30)
[2017-07-19] MEDS ORDERED: BACITRACIN OINT 0.9 GM PKT TOP ONE (13:30)
[2017-07-19] MEDS ORDERED: SODIUM CHLOR 0.9% 250 ML INJ 250 ML IV PRN (13:30)
[2017-07-19] MEDS ORDERED: oxyCODONE/ACETAMINOPHEN 5 MG/325 MG TAB PO PRN ×2 (13:30)
[2017-07-19] MEDS ORDERED: ATROPINE SULFATE 1 MG/ML VIAL IV PUSH PRN (13:30)
[2017-07-19] MEDS ORDERED: LORazepam 2 MG/ML VIAL IV PUSH PRN (13:30)
--- NOTE | 2017-07-19 13:46 | MA ---
cc: Gregory Still MD DATE: 07/19/2017 PROCEDURE: Electrophysiologic study, CS cannulation, 3D mapping, for catheter placement, repeat electrophysiologic study on isuprel infusion. INDICATIONS: Mrs. Bentley is a 67-year-old female with episode of palpitations, near syncope, referred by Dr. Borrero for electrophysiology study and possible ablation, possible loop recorder insertion. The risks, the nature and the benefits of the procedure were clearly stated to her. Risks include pneumothorax, cardiac perforation, stroke and even . She understood and agreed to proceed. PROCEDURE: After written informed consent was obtained, the patient was brought to the EP lab where she was prepped and draped in the usual sterile fashion. Conscious sedation was initiated and maintained throughout the procedure by the anesthesiologist. Once sedation was verified, the right inguinal area was anesthetized with 2% Xylocaine. Using modified Seldinger technique, the right femoral vein was cannulated on four occasions, four guidewires were advanced. Over the wires, three 5 and a 6-Malagasy Hemaquet were advanced. Then, under fluoroscopic guidance through the 5 and 6-Malagasy Hemaquets, four 5-Malagasy Yue curved quadripolar electrophysiology catheters were advanced and placed at the His, upper right atrium, coronary sinus and right ventricular apex. Basic intervals were measured. They were within normal limits. At this point, atrial pacing protocol was performed. Atrial pacing protocol consisted of incremental atrial pacing as well as program stimulation of 410 cycle length and up to 1 extrastimuli delivered. No tachyarrhythmia was induced. Then, ventricular pacing protocol was performed. There was good conduction at baseline. Ventricular pacing protocol cons of incremental ventricular pacing as well as program stimulation of 410 cycle length and up to three extrastimuli delivered. No tachyarrhythmia was induced. Then isuprel infusion was initiated. Atrial and ventricular pacing protocol was repeated again. No tachyarrhythmia was induced. Post-isuprel no tachyarrhythmia was induced. At that point, the procedure was complete. All catheters were removed. The patient is going to be kept on the table. Loop recorder will be inserted. No incident reported. The patient tolerated the procedure. Blood loss minimal. 1. ELECTROCARDIOGRAM: At baseline, the patient was sinus. Post-procedure electrocardiogram was unchanged. 2. BASIC INTERVAL: Base cycle length was around 800 milliseconds, AH was at 100 and HV was around 46 milliseconds. 3. ATRIAL PACING PROTOCOL: Wenckebach of the node at baseline was 280 milliseconds. ERP of the node was 600, 220 milliseconds. No tachyarrhythmia was induced. 4. VENTRICULAR PACING PROTOCOL: There was VA conduction at baseline on isuprel. No tachyarrhythmia was induced. CONCLUSION: Negative electrophysiology study for supraventricular tachyarrhythmia. COMMENT AND RECOMMENDATIONS: The patient will be kept on the table and the loop recorder will be inserted. MD BOB Maher/EDGAR , 01:21 PM , 01:46 PM
--- NOTE | 2017-07-19 13:53 | MP ---
cc: Gregory Still MD DATE OF OPERATION: 07/19/2017 PROCEDURE PERFORMED: Loop recorder insertion. INDICATIONS: Mrs. Bentley is a 67-year-old female with tachyarrhythmia and negative electrophysiology study, episode of near syncope, to undergo loop recorder insertion. The risks, the nature and the benefits of the procedure were clearly stated to her. Risks include pneumothorax, infection and even . The patient understood and agreed to proceed. PROCEDURE: As written informed consent was obtained prior to electrophysiology study, the patient was kept on the table where she was prepped and draped in the usual sterile fashion. Conscious sedation was continued by the anesthesiologist. Once sedation was verified, the left parasternal area was anesthetized with 2% Xylocaine. Using a curet, a less than 1 cm incision was made. Subsequently, the loop was inserted under the skin. After adequate sensing thresholds were obtained, the border was reapproximated using Dermabond and Steri-Strips. No incident to reported. The patient tolerated the procedure. 1. IMPLANTED HARDWARE: The implanted loop recorder is a [employer], model [id number], serial number [id number]. 2. SETTINGS: Huan is set under 40, tachy over 160. CONCLUSIONS: Successful loop recorder insertion. COMMENT AND RECOMMENDATIONS: The patient is going to be observed and discharged later on today. Gregory Still MD HS/SB , 01:24 PM , 01:52 PM
--- NOTE | 2017-07-20 07:23 | EKG ---
Date Performed: 07/19/2017 Time Performed: 09:53:48 PTAGE: 67 years EKG: Sinus rhythm . Normal ECG NO PREVIOUS TRACING DOCTOR: Gregory Still Interpretating Date/Time 07/20/2017 07:20:05
== END 2017-07-19 16:00 | disposition home or self-care (01) ==
LOC: HDOC 09:04 → HDIC 09:05 → HDOC 16:00
PROVIDERS: ATTEND Internal Medicine Interventional Cardiology
DX: R55 Syncope and collapse (principal); I25.10 Atherosclerotic heart disease of native coronary artery without angina pectoris; I70.0 Atherosclerosis of aorta; E78.5 Hyperlipidemia, unspecified; J44.9 Chronic obstructive pulmonary disease, unspecified; E87.1 Hypo-osmolality and hyponatremia
CPT/HCPCS: 00530; 33282; 80048; 85007; 85027; 85610; 85730; 86850; 86900; 86901; 93005; 93620; 93623; C1730; C1732; C1764; J0690; J1644; J2250

== ENCOUNTER 2017-09-24 21:08 | Observation (INO) ==
[2017-09-24 21:40] LABS: Baso % (Auto) 0.2 % (0.0-2.0); Hematocrit 37.3 % (35.0-46.0); Hemoglobin 12.6 gm/dL (11.6-15.3); Mean Corpuscular HGB Conc 33.9 % (32.0-36.0); Mean Corpuscular Hemoglobin 30.1 pg (27.0-34.0); Mean Corpuscular Volume 88.9 fL (80.0-100.0); Mean Platelet Volume 7.7 fL (7.0-11.0); Mono # (Auto) 1.1 th/mm3 (0.0-0.9); Mono % (Auto) 9.8 % (0.0-8.0); Platelet Count 277 th/mm3 (150-450); Red Blood Count 4.19 mil/mm3 (4.00-5.30); Red Cell Distribution Width 14.5 % (11.6-17.2); White Blood Count 11.1 th/mm3 (4.0-11.0)
[2017-09-24 21:53] LABS: Activated Partial Thrombo Time 23.9 sec (24.3-30.1)
--- NOTE | 2017-09-24 22:09 | XR ---
EXAM DATE: 09/24/2017 9:55 PM EDT AGE/SEX: 67 years / Female INDICATIONS: Chest pain. CLINICAL DATA: This is the patient's initial encounter. Patient reports that signs and symptoms have been present for 1 day and indicates a pain score of 10/10. MEDICAL/SURGICAL HISTORY: Chronic obstructive pulmonary disease. Hypertension. Cholecystectomy . Loop recorder. COMPARISON: [facility], CHEST SINGLE AP, 07/09/2016. . FINDINGS: A single AP view of the chest demonstrates the lungs to be symmetrically aerated without evidence of mass, infiltrate or effusion. The cardiomediastinal contours are unremarkable. Osseous structures a re intact. CONCLUSION: No active disease. Electronically signed by: Chaz Bailey MD 09/24/2017 10:08 PM EDT
[2017-09-24] MEDS ORDERED: Morphine Inj 4 MG/ML Vial IV.PUSH ONE (22:14)
[2017-09-24 22:30] LABS: Anion Gap 9 meq/L (5-15); Blood Urea Nitrogen 11 mg/dL (7-18); Calcium 8.9 mg/dL (8.5-10.1); Carbon Dioxide 29.2 meq/L (21.0-32.0); Chloride 92 meq/L (98-107); Glomerular Filtration Rate 68 mL/min (>89); Glucose,Random 102 mg/dL (74-106); Potassium 4.4 meq/L (3.5-5.1); Sodium 130 meq/L (136-145)
--- NOTE | 2017-09-24 23:05 | ED ---
HPI General Chief Complaint: Chest Pain Stated Complaint: Chest Pain Time Seen by Provider: 09/24/17 21:18 Source: patient Mode of arrival: ambulatory Limitations: no limitations History of Present Illness HPI narrative: Apparently recently 3 days ago had a syncopal episode possibly postictal and then a cardiac arrest according to her . 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 fib shocked her continued CPR shocked her twice brought her to [facility] where she was admitted resuscitated discharge this a.m. Apparently in the day they were called by Dr. Gutierrez the high lift operator to put the loop recorder into her chest on July 19 and told her there was episodes of complete heart block and she should go to the hospital here in the hospital the patient's only complaint is chest pain that she has had since she had CPR done 2 or 3 days ago. EKG is normal sinus rhythm at a rate of 78 bpm with [address] [facility] loop recorder the interrogator of the apparatus then Sloan said he would be in the in the a.m. and that he was able to evaluate the phone transmissions for the last couple weeks and there was no sign of any abnormality in the loop transmissions that were sent to the phone Complete Quality Measures for STEMI Alert Patients Related Data Home Medications Medication Instructions Recorded Confirmed divalproex 1,000 mg PO DAILY 09/24/17 09/24/17 fluoxetine 20 mg PO DAILY 09/24/17 09/24/17 sodium chloride 2 gm PO HS 09/24/17 09/25/17 Previous Rx's Medication Instructions Recorded cephalexin 500 mg PO BID 5 Days #10 cap 09/27/17 cephalexin 500 mg PO BID 5 Days #10 cap 09/27/17 methylprednisolone [Medrol (Ortiz)] 4 mg PO PER PKG DIR #1 dosepack 09/27/17 Allergies Allergy/AdvReac Type Severity Reaction Status Date / Time No Known Allergies Allergy Unknown Uncoded 07/19/17 09:49 Review of Systems Except as stated in HPI: all other systems reviewed are negative [facility] Medical History Medical History Basal cell carcinoma (Acute) COPD (chronic obstructive pulmonary disease) (Acute) Cardiac arrest (Acute) Depressed (Acute) Seizures (Acute) Status post placement of implantable loop recorder (Acute) Syncope and collapse (Acute) Surgical History Surgical History History of loop recorder (Acute) Social History Social History Substance History: No History of Abuse Second Hand Smoke Exposure: No Smoking Status: Former smoker Tobacco Type: Cigarettes How Often Do You Have a Drink Containing Alcohol: Never Recent Travel in [facility] within the Last 8 Weeks: No Immunization History Tetanus Immunization: >5 Years Hx Influenza Vaccine This Season: Yes Exam Narrative Exam Narrative: GENERAL: Awake alert no obvious distress is holding her chest and she is in pain in her chest SKIN: Warm and dry. HEAD: Atraumatic. Normocephalic. EYES: Pupils equal and round. No scleral icterus. No injection or drainage. ENT: No nasal bleeding or discharge. Mucous membranes pink and moist. NECK: Trachea midline. No JVD. CARDIOVASCULAR: Regular rate and rhythm. RESPIRATORY: No accessory muscle use. Clear to auscultation. Breath sounds equal bilaterally. GASTROINTESTINAL: Abdomen soft, non-tender, nondistended. Hepatic and splenic margins not palpable. MUSCULOSKELETAL: Extremities without clubbing, cyanosis, or edema. No obvious deformities. NEUROLOGICAL: Awake and alert. No obvious cranial nerve deficits. Motor grossly within normal limits. Five out of 5 muscle strength in the arms and legs. Normal speech. PSYCHIATRIC: Appropriate mood and affect; insight and judgment normal. Course Initial Documented Vital Signs Temperature 98.1 F 09/24/17 21:12 Pulse Rate 87 09/24/17 21:12 Blood Pressure 207/84 H 09/24/17 21:12 Pulse Oximetry 87 L 09/24/17 21:12 Last Documented Vital Signs Temperature 97.8 F 09/27/17 11:00 Pulse Rate 60 09/27/17 11:00 Respiratory Rate 16 09/27/17 11:00 Blood Pressure 144/64 H 09/27/17 11:00 Pulse Oximetry 98 09/27/17 11:00 Medical Decision Making MDM Narrative Medical decision making narrative: Pt has EKG NSR no heart blocks seen she has p waves followed by QRS narrows NSR and asymptomatic. pt given pain meds and aspirin and admitted I spoke to Sloan of [facility] who was able to access the phone recorded sendings from loop recorder and there were no Events he could find , he will come bedside to evaluate in AM ON TELE FLOOR. pt is asymptomatic and normotensive with normal sinus rhythm Differential Diagnosis Differential Diagnosis: arrhythmia recorded on loop recorder vs the episode of CPR last week being rcorded vs loop malfunction vs other , pt has no symptoms currently Lab Data Result diagrams: 09/25/17 05:10 09/25/17 05:10 Lab Results 09/24/17 09/24/17 09/24/17 Range/Units 21:20 21:20 21:20 WBC 11.1 H (4.0-11.0) th/mm3 RBC 4.19 (4.00-5.30) mil/mm3 Hgb 12.6 (11.6-15.3) gm/dL Hct 37.3 (35.0-46.0) % MCV 88.9 (80.0-100.0) fL MCH 30.1 (27.0-34.0) pg MCHC 33.9 (32.0-36.0) % RDW 14.5 (11.6-17.2) % Plt Count 277 (150-450) th/mm3 MPV 7.7 (7.0-11.0) fL Neut % (Auto) 81.0 H (16.0-70.0) % Lymph % (Auto) 9.0 (9.0-44.0) % Mcdonough % (Auto) 9.8 H (0.0-8.0) % Eos % (Auto) 0.0 (0.0-4.0) % Baso % (Auto) 0.2 (0.0-2.0) % Neut # (Auto) 9.0 H (1.8-7.7) th/mm3 Lymph # (Auto) 1.0 (1.0-4.8) th/mm3 Mcdonough # (Auto) 1.1 H (0.0-0.9) th/mm3 Eos # (Auto) 0.0 (0.0-0.4) th/mm3 Baso # (Auto) 0.0 (0.0-0.2) th/mm3 WBC Differential . Differential Comment Auto diff final PT 10.0 (9.8-11.6) sec INR 1.0 Ratio APTT 23.9 L (24.3-30.1) sec Sodium 130 L (136-145) meq/L Potassium 4.4 (3.5-5.1) meq/L Chloride 92 L (98-107) meq/L Carbon Dioxide 29.2 (21.0-32.0) meq/L Anion Gap 9 (5-15) meq/L BUN 11 (7-18) mg/dL Creatinine 0.83 (0.50-1.00) mg/dL Estimated GFR 68 L (>89) mL/min Random Glucose 102 (74-106) mg/dL Calcium 8.9 (8.5-10.1) mg/dL Creatine Kinase (29-143) U/L CK-MM (CK-3) % CK-MB (CK-2) % CK-BB (CK-1) % CK and CKMB Interp Troponin I Less than 0.02 L (0.02-0.05) ng/mL Valproic Acid (50-100) mcg/mL 09/25/17 09/25/17 09/25/17 Range/Units 05:10 05:10 05:10 WBC 9.8 (4.0-11.0) th/mm3 RBC 3.59 L (4.00-5.30) mil/mm3 Hgb 11.0 L (11.6-15.3) gm/dL Hct 32.3 L (35.0-46.0) % MCV 90.0 (80.0-100.0) fL MCH 30.7 (27.0-34.0) pg MCHC 34.1 (32.0-36.0) % RDW 14.0 (11.6-17.2) % Plt Count 249 (150-450) th/mm3 MPV 8.0 (7.0-11.0) fL Neut % (Auto) 61.7 (16.0-70.0) % Lymph % (Auto) 25.4 (9.0-44.0) % Mcdonough % (Auto) 12.4 H (0.0-8.0) % Eos % (Auto) 0.2 (0.0-4.0) % Baso % (Auto) 0.3 (0.0-2.0) % Neut # (Auto) 6.0 (1.8-7.7) th/mm3 Lymph # (Auto) 2.5 (1.0-4.8) th/mm3 Mcdonough # (Auto) 1.2 H (0.0-0.9) th/mm3 Eos # (Auto) 0.0 (0.0-0.4) th/mm3 Baso # (Auto) 0.0 (0.0-0.2) th/mm3 WBC Differential . Differential Comment Auto diff final PT (9.8-11.6) sec INR Ratio APTT (24.3-30.1) sec Sodium 134 L (136-145) meq/L Potassium 3.9 (3.5-5.1) meq/L Chloride 97 L (98-107) meq/L Carbon Dioxide 32.7 H (21.0-32.0) meq/L Anion Gap 4 L (5-15) meq/L BUN 10 (7-18) mg/dL Creatinine 0.62 (0.50-1.00) mg/dL Estimated GFR Greater than 89 (>89) mL/min Random Glucose 79 (74-106) mg/dL Calcium 8.5 (8.5-10.1) mg/dL Creatine Kinase (29-143) U/L CK-MM (CK-3) % CK-MB (CK-2) % CK-BB (CK-1) % CK and CKMB Interp Troponin I (0.02-0.05) ng/mL Valproic Acid 90 (50-100) mcg/mL 09/25/17 Range/Units 13:15 WBC (4.0-11.0) th/mm3 RBC (4.00-5.30) mil/mm3 Hgb (11.6-15.3) gm/dL Hct (35.0-46.0) % MCV (80.0-100.0) fL MCH (27.0-34.0) pg MCHC (32.0-36.0) % RDW (11.6-17.2) % Plt Count (150-450) th/mm3 MPV (7.0-11.0) fL Neut % (Auto) (16.0-70.0) % Lymph % (Auto) (9.0-44.0) % Mcdonough % (Auto) (0.0-8.0) % Eos % (Auto) (0.0-4.0) % Baso % (Auto) (0.0-2.0) % Neut # (Auto) (1.8-7.7) th/mm3 Lymph # (Auto) (1.0-4.8) th/mm3 Mcdonough # (Auto) (0.0-0.9) th/mm3 Eos # (Auto) (0.0-0.4) th/mm3 Baso # (Auto) (0.0-0.2) th/mm3 WBC Differential Differential Comment PT (9.8-11.6) sec INR Ratio APTT (24.3-30.1) sec Sodium (136-145) meq/L Potassium (3.5-5.1) meq/L Chloride (98-107) meq/L Carbon Dioxide (21.0-32.0) meq/L Anion Gap (5-15) meq/L BUN (7-18) mg/dL Creatinine (0.50-1.00) mg/dL Estimated GFR (>89) mL/min Random Glucose (74-106) mg/dL Calcium (8.5-10.1) mg/dL Creatine Kinase 38.0 (29-143) U/L CK-MM (CK-3) % ND CK-MB (CK-2) % ND CK-BB (CK-1) % ND CK and CKMB Interp ND Troponin I (0.02-0.05) ng/mL Valproic Acid (50-100) mcg/mL Imaging Data Radiologist's impression: Chest X-Ray 09/24/17 21:18 CONCLUSION: No active disease. Chest X-Ray 09/25/17 00:00 CONCLUSION: Postop pacer placement. No pneumothorax. No active disease. Discharge Plan Discharge Disposition Patient Disposition: 01 Discharge Home Discharge Condition Condition: Good Discharge Order Discharge Orders: Discharge Order (Routine); Ordered 09/27/17 Ordered By: Luther Meyers Physicians Team ED Provider: Crow Ca Primary Care Provider: UNKNOWN, Attending Provider: Luther Meyers Other Providers: Gregory Still ; Guillermo Dexter Status ED Status: Left Department Discharge Information Discharge Date/Time: 09/25/17 00:55
--- NOTE | 2017-09-24 23:52 | P.HPIM ---
History of Present Illness Primary Care Physician: UNKNOWN Chief Complaint: chest pain History of Present Illness: 67 y/o female with a history of copd, cad, cardiac arrest, anxiety, depression, and s/p loop recorder was sent to the ED by Dr. Still for evaluation of her loop recorder. Patient suffered a cardiac arrest 3 days ago and was admitted to [facility]. 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 fib shocked her continued CPR shocked her twice brought her to [facility] where she was admitted, resuscitated, and discharge this a.m. Patient states Dr. Still was concerned that there were episodes of complete heart block and she should go to the hospital. She states the only complaint is the residual chest pain she has from the chest compressions, that is worse with a deep breath and reproducible by palpation. She denies any sob, fever or chills. Review of Systems All other systems reviewed negative except as stated [facility] - History History Provided By: Patient - Medical History Medical History: Medical History (Last Updated 09/24/17 @ 21:49 by Laurence Fuentes RN) Basal cell carcinoma COPD (chronic obstructive pulmonary disease) Cardiac arrest Depressed Seizures Status post placement of implantable loop recorder Syncope and collapse - Surgical History Surgical History: Surgical History (Last Updated 09/24/17 @ 21:49 by Laurence Fuentes RN) History of loop recorder - Tobacco History Second Hand Smoke Exposure: No Tobacco Use In Past 30 Days: No Smoking Status: Former smoker Tobacco Type: Cigarettes - Alcohol History How Often Do You Have a Drink Containing Alcohol: Never - Substance Use History Substance History: No History of Abuse - Travel History Recent Travel in the [facility] Within the Last 8 Weeks: No - Immunization History Tetanus Immunization: >5 Years Hx Influenza Vaccine This Season: Yes Medications and Allergies Active Medications: Active Medications Hydrocodone Bitart/Acetaminophen (Webster 5/325) 1 tab PO Q6H PRN PRN Reason: PAIN SCALE 1 TO 10 Divalproex Sodium (Depakote Er) 1,000 mg PO DAILY [facility] Fluoxetine HCl (Prozac) 20 mg PO DAILY [facility] Ondansetron HCl (Zofran Odt) 4 mg PO Q6H PRN PRN Reason: NAUSEA OR VOMITING Prednisone (Deltasone) 5 mg PO TID [facility] Sodium Chloride (Ns Flush) 2 ml IV.FLUSH UNSCH PRN PRN Reason: FLUSH AFTER USING IV ACCESS Sodium Chloride (Sodium Chloride) 1 gm PO DAILY [facility] Temazepam (Restoril) 15 mg PO HS PRN PRN Reason: INSOMNIA Allergies Allergy/AdvReac Type Severity Reaction Status Date / Time No Known Allergies Allergy Unknown Uncoded 07/19/17 09:49 Home Medications Medication Instructions Recorded Confirmed Type cefuroxime axetil 250 mg PO Q12H 09/24/17 09/24/17 History divalproex 1,000 mg PO DAILY 09/24/17 09/24/17 History fluoxetine 20 mg PO DAILY 09/24/17 09/24/17 History hydrocodone-acetaminophen 1 tab PO Q6H PRN 09/24/17 09/24/17 History prednisone 5 mg PO TID 09/24/17 09/24/17 History sodium chloride 1 gm PO DAILY 09/24/17 09/24/17 History Exam Vital signs: Vital Signs 09/24/17 21:12 09/24/17 21:54 09/24/17 21:55 Temperature 98.1 F 98.4 F Pulse Rate 87 73 73 Respiratory Rate 18 Blood Pressure 207/84 H 168/76 H Pulse Oximetry 87 L 98 Intake & Output 09/24/17 09/24/17 09/25/17 06:59 18:59 06:59 Weight 58.967 kg Narrative: GENERAL: This is a well-nourished, well-developed patient, in no apparent distress. CARDIOVASCULAR: Regular rate and rhythm without murmurs, gallops, or rubs. Chest tender to touch RESPIRATORY: Diminished Breath sounds equal bilaterally. No wheezes, rales, or rhonchi. GASTROINTESTINAL: Abdomen soft, non-tender, nondistended. Normal active bowel sounds MUSCULOSKELETAL: Extremities without clubbing, cyanosis, or edema. NEURO: Alert & Oriented x4 to person, place, time, situation. Moves all ext x4 Results - Labs CBC & Chem 7: 09/24/17 21:20 09/24/17 21:20 Labs: Short CBC 09/24/17 Range/Units 21:20 WBC 11.1 H (4.0-11.0) th/mm3 Hgb 12.6 (11.6-15.3) gm/dL Hct 37.3 (35.0-46.0) % Plt Count 277 (150-450) th/mm3 BMP 09/24/17 21:20 Sodium 130 L Potassium 4.4 Chloride 92 L Carbon Dioxide 29.2 BUN 11 Creatinine 0.83 Calcium 8.9 Cardiac Enzymes 09/24/17 Range/Units 21:20 Troponin I Less than 0.02 L (0.02-0.05) ng/mL - Imaging Impressions Chest X-Ray 09/24/17 21:18 CONCLUSION: No active disease. Caprini VTE Risk Assessment Caprini VTE Risk Assessment: Moderate/High Risk (score >= 2) Caprini Risk Assessment Model: Point Value = 1 Point Value = 2 Point Value = 3 Point Value = 5 Age 41-60 Minor surgery BMI > 25 kg/m2 Swollen legs Varicose veins or History of unexplained or recurrent spontaneous Oral contraceptives or hormone replacement Sepsis (< 1 month) Serious lung disease, including pneumonia (< 1 month) Abnormal pulmonary function Acute myocardial infarction Congestive heart failure (< 1 month) History of inflammatory bowel disease Medical patient at bed rest Age 61-74 Arthroscopic surgery Major open surgery (> 45 min) Laparoscopic surgery (> 45 min) Malignancy Confined to bed (> 72 hours) Immobilizing plaster cast Central venous access Age >= 75 History of VTE Family history of VTE Factor V Leiden Prothrombin [id number] Lupus anticoagulant Anticardiolipin antibodies Elevated serum homocysteine Heparin-induced thrombocytopenia Other congenital or acquired thrombophilia Stroke (< 1 month) Elective arthroplasty Hip, pelvis, or leg fracture Acute spinal cord injury (< 1 month) Prophylaxis Regimen: Total Risk Factor Score Risk Level Prophylaxis Regimen 0-1 Low Early ambulation 2 Moderate Order ONE of the following: *Sequential Compression Device (SCD) *Heparin 5000 units SQ BID 3-4 Higher Order ONE of the following medications: *Heparin 5000 units SQ TID *Enoxaparin/Lovenox 40 mg SQ daily (WT < 150 kg, CrCl > 30 mL/min) *Enoxaparin/Lovenox 30 mg SQ daily (WT < 150 kg, CrCl > 10-29 mL/min) *Enoxaparin/Lovenox 30 mg SQ BID (WT < 150 kg, CrCl > 30 mL/min) AND/OR *Sequential Compression Device (SCD) 5 or more Highest Order ONE of the following medications: *Heparin 5000 units SQ TID (Preferred with Epidurals) *Enoxaparin/Lovenox 40 mg SQ daily (WT < 150 kg, CrCl > 30 mL/min) *Enoxaparin/Lovenox 30 mg SQ daily (WT < 150 kg, CrCl > 10-29 mL/min) *Enoxaparin/Lovenox 30 mg SQ BID (WT < 150 kg, CrCl > 30 mL/min) AND *Sequential Compression Device (SCD) Assessment and Plan - Plan 67 y/o female with a history of copd, cad, cardiac arrest, anxiety, depression, and s/p loop recorder was sent to the ED by Dr. Still for evaluation of her loop recorder. Patient suffered a cardiac arrest 3 days ago and was admitted to [facility]. . dysthymia on loop recorder -Interrogation per [facility] in AM -Consult Dr. Still for evaluation -Monitor telemetry Costochondritis, secondary to CPR, not ILDA -Morphine IV and Percocet po for pain -Flexeril prn Depression, chronic -Resume home medications COPD, chronic -Resume home medication prednisone -Duonebs as needed DVT prophylaxis: Heparin Discussed Condition With: Patient and RN
[2017-09-25] MEDS: Temazepam 15 MG Capsule PO PRN ×2 (01:49→22:16)
[2017-09-25 06:18] LABS: Baso % (Auto) 0.3 % (0.0-2.0); Eos % (Auto) 0.2 % (0.0-4.0); Hematocrit 32.3 % (35.0-46.0); Lymph # (Auto) 2.5 th/mm3 (1.0-4.8); Lymph % (Auto) 25.4 % (9.0-44.0); Mean Corpuscular HGB Conc 34.1 % (32.0-36.0); Mean Corpuscular Hemoglobin 30.7 pg (27.0-34.0); Mono # (Auto) 1.2 th/mm3 (0.0-0.9); Mono % (Auto) 12.4 % (0.0-8.0); Neut % (Auto) 61.7 % (16.0-70.0); Platelet Count 249 th/mm3 (150-450); Red Blood Count 3.59 mil/mm3 (4.00-5.30); White Blood Count 9.8 th/mm3 (4.0-11.0)
[2017-09-25 06:41] LABS: Anion Gap 4 meq/L (5-15); Blood Urea Nitrogen 10 mg/dL (7-18); Calcium 8.5 mg/dL (8.5-10.1); Carbon Dioxide 32.7 meq/L (21.0-32.0); Chloride 97 meq/L (98-107); Glomerular Filtration Rate Greater Than 89 mL/min (>89); Glucose,Random 79 mg/dL (74-106); Potassium 3.9 meq/L (3.5-5.1); Sodium 134 meq/L (136-145)
[2017-09-25] MEDS: Heparin - SQ 10,000 UNITS/ML Vial SQ SCH ×3 (07:03→21:20)
--- NOTE | 2017-09-25 09:03 | P.CONNEU ---
History of Present Illness Service: Neurology Primary Care Provider: UNKNOWN Chief Complaint: Seizure History of Present Illness: 67 y/o female with a history of copd, cad, cardiac arrest, anxiety, depression, and s/p loop recorder was sent to the ED by Dr. Still for evaluation of her loop recorder. Patient apparently was at outside hospital had cardiac arrest successfully resuscitated just 3 days ago. She is here for for further cardiac evaluation. neurology consult for history of seizures. History of seizures for the past 3 years followed in our office. Takes Depakote for it. No aura states she just passes out. Possible this may be cardiac events. Denies any convulsions. Denies any headache focal weakness vision loss or language disturbance. Was on Tegretol in the past and Eddie was seen here earlier this year noted to have hyponatremia possibly related to those medications she is taken off. Seen by psychiatry who suggested her to be on Remeron for depression which is less SIADH side effects. States she does take Depakote daily and is compliant with it. Review of Systems All other systems reviewed negative except as stated in HPI [facility] - History History Provided By: Patient - Medical History Medical History: Medical History (Last Updated 09/24/17 @ 21:49 by Laurence Fuentes RN) Basal cell carcinoma COPD (chronic obstructive pulmonary disease) Cardiac arrest Depressed Seizures Status post placement of implantable loop recorder Syncope and collapse - Surgical History Surgical History: Surgical History (Last Updated 09/24/17 @ 21:49 by Laurence Fuentes RN) History of loop recorder - Tobacco History Second Hand Smoke Exposure: No Tobacco Use In Past 30 Days: No Smoking Status: Former smoker Tobacco Type: Cigarettes - Alcohol History How Often Do You Have a Drink Containing Alcohol: Never - Substance Use History Substance History: No History of Abuse - Travel History Recent Travel in the [facility] Within the Last 8 Weeks: No - Immunization History Tetanus Immunization: >5 Years Hx Influenza Vaccine This Season: Yes Medications and Allergies Active Medications: Active Medications Hydrocodone Bitart/Acetaminophen (Peyton 5/325) 1 tab PO Q6H PRN PRN Reason: PAIN SCALE 1 TO 10 Last Admin: 09/25/17 01:49 Dose: 1 tab Albuterol (Duoneb Neb (Prn)) 1 ampul NEB Q2HR NEB PRN PRN Reason: SHORTNESS OF BREATH/WHEEZING Cyclobenzaprine HCl (Flexeril) 5 mg PO Q8H PRN PRN Reason: Muscle pain Divalproex Sodium (Depakote Er) 1,000 mg PO DAILY [facility] Fluoxetine HCl (Prozac) 20 mg PO DAILY [facility] Heparin Sodium (Porcine) (Heparin Inj) 5,000 units SQ Q8HR [facility]JOR Last Admin: 09/25/17 07:03 Dose: 5,000 units Miscellaneous (Pill Splitter) 1 each OTHER UNSCH PRN PRN Reason: PILL SPIT Morphine Sulfate (Morphine Inj) 2 mg IV.PUSH Q3H PRN PRN Reason: BREAKTHROUGH PAIN Ondansetron HCl (Zofran Odt) 4 mg PO Q6H PRN PRN Reason: NAUSEA OR VOMITING Prednisone (Deltasone) 5 mg PO TID [facility] Sodium Chloride (Ns Flush) 2 ml IV.FLUSH UNSCH PRN PRN Reason: FLUSH AFTER USING IV ACCESS Sodium Chloride (Sodium Chloride) 1 gm PO DAILY [facility] Temazepam (Restoril) 15 mg PO HS PRN PRN Reason: INSOMNIA Last Admin: 09/25/17 01:49 Dose: 15 mg Allergies Allergy/AdvReac Type Severity Reaction Status Date / Time No Known Allergies Allergy Unknown Uncoded 07/19/17 09:49 Home Medications Medication Instructions Recorded Confirmed Type cefuroxime axetil 250 mg PO Q12H 09/24/17 09/24/17 History divalproex 1,000 mg PO DAILY 09/24/17 09/24/17 History fluoxetine 20 mg PO DAILY 09/24/17 09/24/17 History hydrocodone-acetaminophen 1 tab PO Q6H PRN 09/24/17 09/24/17 History prednisone 5 mg PO TID 09/24/17 09/24/17 History sodium chloride 1 gm PO DAILY 09/24/17 09/24/17 History Exam Vital signs: Vital Signs 09/24/17 21:12 09/24/17 21:54 09/24/17 21:55 Temperature 98.1 F 98.4 F Pulse Rate 87 73 73 Respiratory Rate 18 Blood Pressure 207/84 H 168/76 H Pulse Oximetry 87 L 98 09/25/17 00:00 09/25/17 01:16 09/25/17 02:00 Temperature 97.9 F Pulse Rate 85 Respiratory Rate 16 16 Blood Pressure 171/76 H Pulse Oximetry 90 L 97 09/25/17 02:25 09/25/17 03:25 09/25/17 04:00 Temperature 98.5 F Pulse Rate 65 58 L Respiratory Rate 21 16 Blood Pressure 149/67 H Pulse Oximetry 98 Intake & Output 09/24/17 09/25/17 09/25/17 18:59 06:59 18:59 Weight 58.967 kg Other: # Voids 2 Date of Last Bowel Movement 09/22/17 Narrative: GENERAL: This is a well-nourished, well-developed patient, in no apparent distress. CARDIOVASCULAR: Regular rate RESPIRATORY: Diminished Breath sounds equal bilaterally. GASTROINTESTINAL: Abdomen soft, non-tender, nondistended. MUSCULOSKELETAL: Extremities without clubbing, cyanosis, or edema. NEURO: Alert & Oriented 3 no aphasia fluent articulate no acute distress visual ontiveros full no facial asymmetry OU 3 2 mm moving all 4 extremity gravity no pronator drift gait not assessed secondary fall risk no neglect reflexes symmetric Psychiatry; denies any active depression - Constitutional no acute distress - Routine HEENT Exam Head: Present: normocephalic Eye: Present: EOMI Results - Labs CBC & Chem 7: 09/25/17 05:10 09/25/17 05:10 Labs: Laboratory Results - last 24 hr 09/24/17 09/24/17 09/24/17 21:20 21:20 21:20 WBC 11.1 H RBC 4.19 Hgb 12.6 Hct 37.3 MCV 88.9 MCH 30.1 MCHC 33.9 RDW 14.5 Plt Count 277 MPV 7.7 Neut % (Auto) 81.0 H Lymph % (Auto) 9.0 Norton % (Auto) 9.8 H Eos % (Auto) 0.0 Baso % (Auto) 0.2 Neut # (Auto) 9.0 H Lymph # (Auto) 1.0 Norton # (Auto) 1.1 H Eos # (Auto) 0.0 Baso # (Auto) 0.0 WBC Differential . Differential Comment Auto diff final PT 10.0 INR 1.0 APTT 23.9 L Sodium 130 L Potassium 4.4 Chloride 92 L Carbon Dioxide 29.2 Anion Gap 9 BUN 11 Creatinine 0.83 Estimated GFR 68 L Random Glucose 102 Calcium 8.9 Troponin I Less than 0.02 L 09/25/17 09/25/17 05:10 05:10 WBC 9.8 RBC 3.59 L Hgb 11.0 L Hct 32.3 L MCV 90.0 MCH 30.7 MCHC 34.1 RDW 14.0 Plt Count 249 MPV 8.0 Neut % (Auto) 61.7 Lymph % (Auto) 25.4 Norton % (Auto) 12.4 H Eos % (Auto) 0.2 Baso % (Auto) 0.3 Neut # (Auto) 6.0 Lymph # (Auto) 2.5 Norton # (Auto) 1.2 H Eos # (Auto) 0.0 Baso # (Auto) 0.0 WBC Differential . Differential Comment Auto diff final PT INR APTT Sodium 134 L Potassium 3.9 Chloride 97 L Carbon Dioxide 32.7 H Anion Gap 4 L BUN 10 Creatinine 0.62 Estimated GFR Greater than 89 Random Glucose 79 Calcium 8.5 Troponin I - Imaging Impressions Chest X-Ray 09/24/17 21:18 CONCLUSION: No active disease. Review/Management - Diagnosis (1) Cardiac arrhythmia Code(s): I49.9 - Cardiac arrhythmia, unspecified Status: Acute Current Visit : Yes (2) Syncope Code(s): R55 - Syncope and collapse Status: Acute Current Visit: Yes (3) Seizure Code(s): R56.9 - Unspecified convulsions Status: Acute Current Visit: Yes (4) Depression Code(s): F32.9 - Major depressive disorder, single episode, unspecified Status : Acute Current Visit: Yes - Review/Management Plan: States her episodes of syncope occur every month. Unclear whether these are cardiac events or actual true epileptic events. Recommendations [facility] No driving or operating any heavy machinery swimming alone climbing heights for at least 6 months of being seizure, syncope free (1) Cardiac arrhythmia Qualifiers: Arrhythmia type: unspecified cardiac arrhythmia Qualified Code(s): I49.9 - Cardiac arrhythmia, unspecified (2) Syncope Qualifiers: Encounter type: sequela (4) Depression Qualifiers: Depression Type: major depressive disorder Major depression recurrence: recurrent Major depression episode severity: mild
[2017-09-25] MEDS: Divalproex 500 MG ER Tablet PO SCH (09:33)
[2017-09-25] MEDS: predniSONE 5 MG Tablet PO SCH ×3 (09:33→21:20)
[2017-09-25] MEDS: FLUoxetine 20 MG Capsule PO SCH (09:33)
[2017-09-25] MEDS: Morphine Inj 4 MG/ML Vial IV.PUSH PRN ×2 (13:17→22:16)
--- NOTE | 2017-09-25 13:32 | MG ---
cc: Darcy Garcia MD EEG NUMBER: [id number] REFERRING PHYSICIAN: Dr. Guillermo Dexter. ROOM NUMBER: [id number] CLINICAL HISTORY: Awake with photic done. Apparently was seen by Dr. Still, stating he has long pauses in the heart rhythm and is going to go into the OR for a pacemaker. Admitted with cardiac arrest 3 days ago for syncope, was readmitted to [place], was at [facility] prior. History of COPD, depression, seizures, but not on antiepileptics per noted. On [place], heparin and Restoril. DESCRIPTION OF RECORD: The patient exhibits a background alpha of 8 Hz, 40-60 microvolts, fairly symmetrical background. No appreciable epileptiform features. Some mild myogenic artifact. Photic stimulation does show a posterior driving response. IMPRESSION: Normal appearing electroencephalogram. No evidence of any epileptiform features. Clinical correlation. Darcy Garcia MD DF/JOSE DE JESUS , 01:18 PM , 01:24 PM
--- NOTE | 2017-09-25 13:52 | P.PN ---
Subjective Interval history: Follow up for recent cardiac arrest, possible heart block. Patient is doing well. Does not talk much during this interview. No acute concerns. No fever, chills. Physical Exam Vital signs: Vital Signs 09/24/17 21:12 09/24/17 21:54 09/24/17 21:55 Temperature 98.1 F 98.4 F Pulse Rate 87 73 73 Respiratory Rate 18 Blood Pressure 207/84 H 168/76 H Pulse Oximetry 87 L 98 09/25/17 00:00 09/25/17 01:16 09/25/17 02:00 Temperature 97.9 F Pulse Rate 85 Respiratory Rate 16 16 Blood Pressure 171/76 H Pulse Oximetry 90 L 97 09/25/17 02:25 09/25/17 03:25 09/25/17 04:00 Temperature 98.5 F Pulse Rate 65 58 L Respiratory Rate 21 16 Blood Pressure 149/67 H Pulse Oximetry 98 09/25/17 08:00 09/25/17 12:00 Temperature 98.7 F 97.8 F Pulse Rate 74 64 Respiratory Rate 18 18 Blood Pressure 169/75 H 143/77 H Pulse Oximetry 97 95 Intake & Output 09/24/17 09/25/17 09/25/17 18:59 06:59 18:59 Weight 58.967 kg Other: # Voids 2 Date of Last Bowel Movement 09/22/17 Narrative: GENERAL: Alert, NAD. SKIN: Warm and dry. HEAD: Normocephalic. EYES: No scleral icterus. No injection or drainage. NECK: Supple, trachea midline. No JVD or lymphadenopathy. CARDIOVASCULAR: Regular rate and rhythm without murmurs, gallops, or rubs. RESPIRATORY: Breath sounds equal bilaterally. No accessory muscle use. GASTROINTESTINAL: Abdomen soft, non-tender, nondistended. MUSCULOSKELETAL: No cyanosis, or edema. BACK: Nontender without obvious deformity. No CVA tenderness. Results - Labs CBC & Chem 7: 09/25/17 05:10 09/25/17 05:10 Laboratory Results - last 24 hr 09/24/17 09/24/17 09/24/17 21:20 21:20 21:20 WBC 11.1 H RBC 4.19 Hgb 12.6 Hct 37.3 MCV 88.9 MCH 30.1 MCHC 33.9 RDW 14.5 Plt Count 277 MPV 7.7 Neut % (Auto) 81.0 H Lymph % (Auto) 9.0 Ceiba % (Auto) 9.8 H Eos % (Auto) 0.0 Baso % (Auto) 0.2 Neut # (Auto) 9.0 H Lymph # (Auto) 1.0 Ceiba # (Auto) 1.1 H Eos # (Auto) 0.0 Baso # (Auto) 0.0 WBC Differential . Differential Comment Auto diff final PT 10.0 INR 1.0 APTT 23.9 L Sodium 130 L Potassium 4.4 Chloride 92 L Carbon Dioxide 29.2 Anion Gap 9 BUN 11 Creatinine 0.83 Estimated GFR 68 L Random Glucose 102 Calcium 8.9 Troponin I Less than 0.02 L Valproic Acid 09/25/17 09/25/17 09/25/17 05:10 05:10 05:10 WBC 9.8 RBC 3.59 L Hgb 11.0 L Hct 32.3 L MCV 90.0 MCH 30.7 MCHC 34.1 RDW 14.0 Plt Count 249 MPV 8.0 Neut % (Auto) 61.7 Lymph % (Auto) 25.4 Ceiba % (Auto) 12.4 H Eos % (Auto) 0.2 Baso % (Auto) 0.3 Neut # (Auto) 6.0 Lymph # (Auto) 2.5 Ceiba # (Auto) 1.2 H Eos # (Auto) 0.0 Baso # (Auto) 0.0 WBC Differential . Differential Comment Auto diff final PT INR APTT Sodium 134 L Potassium 3.9 Chloride 97 L Carbon Dioxide 32.7 H Anion Gap 4 L BUN 10 Creatinine 0.62 Estimated GFR Greater than 89 Random Glucose 79 Calcium 8.5 Troponin I Valproic Acid 90 - Imaging Impressions Chest X-Ray 09/24/17 21:18 CONCLUSION: No active disease. Assessment and Plan - Plan Ms. Bentley is a 67 y/o female with a history of copd, cad, cardiac arrest, anxiety, depression, and s/p loop recorder was sent to the ED by Dr. Still for evaluation of her loop recorder. Patient suffered a cardiac arrest 3 days ago and was admitted to [facility]. Probable complete heart block Dysrhythmia Recent cardiac arrest - Discussed with Dr. Still (Electrophysiology) who plans to place a PPM today. Costochondritis - likely due to recent CPR. Continue Flexeril, pain meds Hx of Seizure disorder - Neurology saw patient. continue Depakote 1000 mg daily. Chronic COPD - Continue home med Prednisone 5mg TID. Full code. SCDs.
[2017-09-25] MEDS: Sodium Chloride 1 GM Tablet PO SCH (15:08)
--- NOTE | 2017-09-25 16:54 | MB ---
cc: Gregory Still MD DATE: 09/25/2017 REASON FOR CONSULTATION: Syncopal episode, episode of AV block. HISTORY OF PRESENT ILLNESS: Ms. Bentley is a 67-year-old female seen by Dr. Borrero. She presents with episode of dizziness and near syncope. She has a loop recorder that was previously implanted. She was at home when began to be dizzy and shortness of breath. She fell on the floor. She was brought to the emergency room in [place] and was discharged home. Interrogation of the loop indicates severe bradycardia and pause. The patient was sent to the emergency room and I was consulted for evaluation and management. The chart was reviewed. The patient was evaluated. ALLERGIES: NONE REPORTED. SOCIAL HISTORY: Negative for smoking and drinking. FAMILY HISTORY: Noncontributory to her current medical condition. MEDICATIONS: 1. Prozac. 2. Zofran. 3. Prednisone. 4. Restoril p.r.n. REVIEW OF SYSTEMS: She is feeling better. No chest pain, no chest discomfort. No dizziness. No syncope since hospitalization. PHYSICAL EXAMINATION: GENERAL: Alert, fully oriented. VITAL SIGNS: Blood pressure 142/77, pulse 64, respiratory rate 18. LUNGS: Ventilated. CARDIOVASCULAR: S1, S2. No gallop. No murmur. ABDOMEN: Soft. No mass. No bruits. EXTREMITIES: No edema. DIAGNOSTIC STUDIES: Electrocardiogram indicated sinus rhythm. No acute ST and T-wave changes or PACs. LABORATORY DATA: Hemoglobin is 11, white blood cell 9.8. INR 1.0. Potassium 3.9, creatinine 0.62. Troponin less than 0.02. ASSESSMENT AND RECOMMENDATIONS: Ms. Bentley has severe bradycardia and a very symptomatic episode of near syncope and dizziness. She has 2:1 atrioventricular block and junctional rhythm. She is going to need a pacemaker. The risks, the nature and the benefits of the procedure were clearly said to her and her . These include pneumothorax, cardiac perforation, stroke and even . They understand and agreed to proceed. The procedure will be performed during hospitalization. Gregory Still MD HS/JOSE DE JESUS , 04:38 PM , 04:47 PM
[2017-09-25] MEDS ORDERED: fentaNYL Citrate Inj 100 MCG/2 ML Ampul ONE (17:15)
--- NOTE | 2017-09-25 17:51 | ECG ---
Date Performed: 09/24/2017 Time Performed: 21:25:06 PTAGE: 67 years EKG: Sinus rhythm WITH OCCASIONAL SUPRAVENTRICULAR PREMATURE COMPLEXES BORDERLINE ECG Since the PREVIOUS TRACING , no significant change noted PREVIOUS TRACIN07/19/2017 09.53.48 DOCTOR: Emmanuel Cannon Interpretating Date/Time 09/25/2017 17:51:35
--- NOTE | 2017-09-25 17:59 | CATHPROC ---
Patient Name: Marika Bentley Study #: [id number] Initial MD: Gregory Still Date of : 1950 Study Date: 09/25/2017 Cardiac Catheterization Report 09/25/2017 5:58:55 PM Financial #: [id number] 1 of 8 Patient Name: Marika Bentley Study #: [id number] Initial MD: Gregory Still Date of : 1950 Study Date: 09/25/2017 Entire Case Report Patient Information Patient Name Marika Bentley Date of 1950 Age 67 years Financial # [id number] Gender F AlternateID Lab Number 2 Room Number F67 Height (in) 66.0 Height (cm) 167.6 BSA 1.67 Weight (lbs) 129.8 Weight (kg) 59.0 Patient Address/Phone Number Home Address [facility] Home Phone Number [address] [facility] [address] Study Information Study Number Admission Scheduled Start Study Start [id number] Sep 24 2017 11:25PM 09/25/2017 Sep 25 2017 4:23PM [place] [facility] Cardiac Catheterization Admit Source Facility Department Other [facility] Lead Developer Physician and Clinical Staff Initial Gregory Mora Paramedic Supervisor Arielle Tamayo,RT(R) TECH2 Paramedic Supervisor Osei HillRT(R) Other Anesthesia, IT SOLUTIONS ARCHITECT Other Argenis GarciaRT(R) Recorder Soheila Garcia,SURAJ Recorder Anna Peterson RN Scrub Marcie Colmenares RCIS Procedures Performed Procedure Lead Insertion 09/25/2017 5:58:55 PM Financial #: [id number] 2 of 8 Patient Name: Marika Bentley Study #: [id number] Initial MD: Gregory Still Date of : 1950 Study Date: 09/25/2017 Equipment Time Tip Finisher Description Size Mfg Part Number Used/Scraped DERMABOND, ADHESIVE SKIN [id number] 16:41 CORDIS/PACER * Used GLUE MINI *[id number] 16:41 FiNC BLANKET,WARM AIR CCL * Used *[id number] TP-1103 16:41 MEDLINE INDUSTRIES SUTURE, STRIP PLUS 1/2" * Used *[id number] 16:41 MEDLINE PACER VIDAL, LIMB * 2530 *[id number] Used [id number] 16:41 MEDLINE PACER PACK, PACER CUSTOM * Used *[id number] 17:02 Chalkboard PACER SAFE SHEATH, FR7, 13CM FR 7 [id number] Used 17:05 Chalkboard PACER SAFE SHEATH, FR7, 13CM FR 7 CLS-1007 Used 16:45 Needle Sponge Count 2 22 Used 16:45 Needle Sponge Count 20 200 Used 16:45 Needle Sponge Count 3 3 Used SUTURE, 0 ETHIBOND [CT1] (CX21D), 8pk SUTURE, 2-0 VICRYL [CT1] ([id number]) SUTURE, 2-0 VICRYL [CT1] ([id number]) LEAD, TENDRIL STS 2088TC 17:05 [facility] [employer] 52CM 2088TC/52CM Used 52CM LEAD, TENDRIL STS 2088TC 17:00 [facility] 58CM 2088TC/58CM Used 58CM PACEMAKER, ASSURITY DR LAURA 17:15 [facility] [id number] Used MRI [facility] PAD, ELECTROSURGICAL 16:41 * [id number] *[id number] Used SURGICAL GROUNDING ORANGE 9537-0960 16:41 [employer] IRMA. / * Used *93645 Equipment Model, Serial, Lot Number and Expiration Data Description Model Number Serial Number Lot Number Expiration Date LEAD, TENDRIL STS 2088TC 52CM 2088tc-52 [id number] 07-26-2020 LEAD, TENDRIL STS 2088TC 58CM 2088tc-58 [id number] 07-26-2020 PACEMAKER, ASSURITY DR LAURA MRI [id number] 12-26-2018 Insurance Information Insurance Payor [facility], Medicare Third Democrat Third Democrat Number BC MEDICARE BCMCR History: Allergies Allergy Reaction No Known Allergies 09/25/2017 5:58:55 PM Financial #: [id number] 3 of 8 Patient Name: Marika Bentley Study #: [id number] Initial MD: Gregory Still Date of : 1950 Study Date: 8 Labs Hgb (g/dl) Hct (%) WBC (l/cumm) Platelets (thousands) 11.60-17.00 35.00-51.00 4.00-11.00 150.00-450.00 11.0 32.3 9.8 249 Glucose (mg/dl) BUN (mg/dl) Creatinine (mg/dl) BUN:Creatinine (1:x) 74.00-106.00 7.00-18.00 0.50-1.30 10.00-20.00 79 10 0.6 16.7 Na (meq/l) K (meq/l) 136.00-145.00 3.50-5.10 134 3.9 INR (PTT:PT) 0.90-1.10 1 Medication Medication Total Dose (Bolus/Oral) Medication Total Dosage/Unit 2% XYLOCAINE 70 mL Medications (Bolus/Oral) Medication Time Given Dosage/Unit Administered By Reason 2% XYLOCAINE 09/25/2017 4:56:34 PM 50 mL Gregory Still 50 mL 2% XYLOCAINE given in lab by Gregory Still via Subcutaneous. Ordered by Gregory Still. 2% XYLOCAINE 09/25/2017 5:17:04 PM 20 mL Gregory Still 20 mL 2% XYLOCAINE given in lab by Gregory Still in Left shoulder via Subcutaneous. Ordered by Gregory Still. Medication (Drip) Medication Time Given Dosage/Unit Concentration/Unit Diluent (ml) Solution ANCEF 09/25/2017 4:52:57 PM 2 g 2 g ANCEF given by Anesthesia, IT SOLUTIONS ARCHITECT via Peripheral IV. Ordered by Gregory Still. Reason: As per physi cians verbal order. VANCOMYCIN DRIP 09/25/2017 4:53:18 PM 1 g 1 g VANCOMYCIN DRIP given in lab by Anesthesia, IT SOLUTIONS ARCHITECT via Peripheral IV. Ordered by Gregory Still. Roselia son: As per physicians verbal order. 09/25/2017 5:58:55 PM Financial #: [id number] 4 of 8 Patient Name: Mariak Bentley Study #: [id number] Initial MD: Gregory Still Date of : 1950 Study Date: 09/25/2017 Initial Case Assessment Neurological State Oriented to time-place- Alert Moves all extremities person Respiration - General Respiration Rate SpO2 (%) O2 (lpm) Short Of Breath (B/min) 20 92 4 Yes Final Case Assessment Cardiovascular HR Rhythm NIBP 73 SR 151/70 Edema Present Skin color Skin None Normal Warm Dry Circulatory - Right Pulses Dorsalis Pedis 1 Scale (0,1,2,3,4,d) Circulatory - Left Pulses Dorsalis Pedis 1 Scale (0,1,2,3,4,d) Circulatory - Lower Extremities Color Lower Right Color Lower Left Normal Normal Neurological State Drowsy Moves all extremities Respiration - General Respiration Rate SpO2 (%) O2 (lpm) (B/min) 16 100 4 Chronological Log Time Study Chronological Log 16:21:00 Patient arrived via Bed. 16:21:25 Patient Name, D.O.B, / Armband Verified By R.N. 09/25/2017 5:58:55 PM Financial #: [id number] 5 of 8 Patient Name: Marika Bentley Study #: [id number] Initial MD: Gregory Still Date of : 1950 Study Date: 09/25/2017 16:21:26 Consent signed by the physician and the patient and verified by the [facility] Lead Developer staff. 16:22:27 Pre-op and post- op instructions given; patient acknowledges understanding of instructions. 16:22:28 Verbal Stimulation=2 Physical Stimulation=2 Airway=2 Respiration=2 TOTAL=8. (0=absent, 1=li mited, 2=present) 16:22:54 Patient has been NPO for More than 6Hrs. 16:23:55 Skin Breakdown- no open areas noted. 16:23:56 Patient Warmer Placed on the Table. Back wedge inserted for ease of breathing with costocho ndritis. 16:23:57 Disposable Defibrillator Pads Placed On Patient. 16:23:59 David Prominences Protected 16:24:00 A # 20 IV was noted in the Antecubital (right). Grade = 0 0.9% NaCl @ KVO 16:24:01 A # 20 IV was noted in the Antecubital (left). Grade = 0 0.9% NaCl @ KVO. 16:24:02 History and physical on the chart. 16:27:40 MD arrived. 16:31:50 Anesthesia at bedside. Assumes care of patient. Assessment: Initial Case 16:35:08 Neurological: State=Alert, Ox3, QUICK Respiration: Resp=20 B/min, SpO2=92 %, O2=4 lpm, Short of Breath; recent costchondritis 16:42:59 Table restraints applied according to hospital policy 16:43:28 2% CHLORHEXIDINE GLUCONATE WASH AND NASAL SWIPE DONE PRIOR TO PROCEDURE. 16:43:38 Bovie ground pad applied to: right thigh First Sponge And Instrument Count Done by Marcie Colmenares RCIS. 16:44:01 Hypo's: 3, Sponges: 20, Bovie/scratch: 2 Sutures: 11, Blades: 1, Instruments: 26, Syveck Patches: ~SYVECK PATCH~ verified by SC 16:45:46 Left Upper Chest Prepped Times Two. 16:50:33 LMA inserted by anesthesia. Back wedge removed. 16:52:30 Reference ECG taken 2 g ANCEF given by Anesthesia, IT SOLUTIONS ARCHITECT via Peripheral IV. Ordered by Gregory Still. Reason: As per physicians verbal 16:52:57 order. 16:53:13 A sterile drape was applied 1 g VANCOMYCIN DRIP given in lab by Anesthesia, IT SOLUTIONS ARCHITECT via Peripheral IV. Ordered by Adán Still Reason: As per 16:53:18 physicians verbal order. Time Out. Correct patient, procedure, procedure equipment, site and side verified with physicia n present. Time 16:55:31 concurred by MD, individual staff and IT SOLUTIONS ARCHITECT. Time Out #2 - Consents verified, patient in correct position, all results are labled and displa yed, safety precautions 16:56:05 taken, antibiotics administered. Time out concurred by MD, individual staff and IT SOLUTIONS ARCHITECT in procedu re 16:56:19 Case Start 16:56:34 50 mL 2% XYLOCAINE given in lab by Gregory Still via Subcutaneous. Ordered by Gregory Still . 16:57:58 Vascular access was obtained in the Subclav. Vein (Lft. 16:58:04 Wire inserted 16:58:55 Surgical Incision Made. 16:58:58 A pocket was created at the Lt. upper chest. 09/25/2017 5:58:55 PM Financial #: [id number] 6 of 8 Patient Name: Marika Bentley Study #: [id number] Initial MD: Gregory Still Date of : 1950 Study Date: 09/25/2017 16:59:34 Vascular access was obtained in the Subclav. Vein (Lft. 16:59:38 Wire inserted 17:00:35 A SAFE SHEATH, FR7, 13CM FR 7 was advanced into the Subclav. Vein (Lft using the Modified S eldinger technique. 17:00:46 A SAFE SHEATH, FR7, 13CM FR 7 was advanced into the Subclav. Vein (Lft using the Modified S eldinger technique. 17:01:52 A LEAD, TENDRIL STS 2088TC 58CM 58CM was inserted and positioned in the RV. 17:02:11 Lead placement verified under fluoroscopy 17:02:16 The RV lead impedance and threshold being tested. 17:05:23 Lead placement verified under fluoroscopy 17:09:23 Lead repositioned and position verified under fluoroscopy. 17:10:20 The RV lead was sutured to the fascia. 17:12:08 A LEAD, TENDRIL STS 2088TC 52CM 52CM was inserted and positioned in the RA. 17:13:06 Lead placement verified under fluoroscopy 17:13:08 The Atrial lead impedance and threshold is being tested. 17:13:42 The Atrial lead was sutured to the fascia. 17:13:55 Pocket flushed with antibiotic solution 17:14:15 A PACEMAKER, ASSURITY DR RF MRI was connected and placed in the pocket. Second Sponge And Instrument Count Done by Marcie Colmenares RCIS. 17:14:41 Hypo's: 3, Sponges: 20, Bovie/scratch: 2 Sutures: 11, Blades: 1, Instruments: ~INSTRU~, Syveck Patches: ~SYVECK PATCH~ verified by 17:15:28 The pocket is being closed. 17:15:48 PACU called. Spoke to Juan 17:17:04 20 mL 2% XYLOCAINE given in lab by Gregory Still in Left shoulder via Subcutaneous. Ordered by Gregory Still. 17:17:30 Loop Recorder Removed. 17:17:55 Case End (Physician broke scrub) 17:22:25 Implantable Device card placed in patient's chart. 17:22:33 No case complications noted. 17:22:34 Cine recording checked. 17:22:40 Bedside Report will be given. 17:28:07 Implant Procedure was performed. 17:28:33 A PPM Implant . (Dual) 17:28:45 A Loop Recorder Removed . (Single) Final Sponge And Instrument Count Done by Marcie Colmenares RCIS. 17:36:43 Hypo's: 3, Sponges: 20, Bovie/scratch: 2 Sutures: 11, Blades: 1, Instruments: 26, Syveck Patches: ~SYVECK PATCH~ verified by SC 17:39:51 Steri-strips and a sterile dressing applied to site. 17:42:57 LMA removed by anesthesia and pt placed to supplemental oxygen by NC at 4l/min 17:50:10 A sling was placed on the affected arm. 09/25/2017 5:58:55 PM Financial #: [id number] Patient Name: Marika Bentley Study #: [id number] Initial MD: Gregory Still Date of : 1950 Study Date: 09/25/2017 Assessment: Final Case, HR=73 BPM, Rhythm=SR, FKIY=264/70 mmhg, Edema=None, Color=Normal, Skin = Warm, Dry Right Pulses: Sahil Ped=1 Left Pulses: Sahil Ped=1 17:50:44 Lower Right Extremities: Color=Normal Lower Left Extremities: Color=Normal Neurological: State=Drowsy, QUICK Respiration: Resp=16 B/min, DgJ8=186 %, O2=4 lpm 17:53:27 [facility] 17:54:52 Defibrillator and ground pads removed. Skin intact. 17:58:44 Pt transported to room on bed with RN and tech accompanying pt in stable condition. End Study - Contrast Media Used In Study Contrast Total Opened (mL) Total Used (mL) Total Wasted (mL) Unspecified 0 0 0 End Study - Maximum Contrast Load Max Contrast Load (mL) 491.7 End Study - Radiation Exposure Fluoro Time (minutes) 2.3 End Study - Patient Disposition Complications Transferred To No Telemetry Bed 09/25/2017 5:58:55 PM Financial #: [id number]
[2017-09-25] MEDS ORDERED: Morphine Sulfate Inj 2 MG/ML Vial ONE (18:45)
--- NOTE | 2017-09-25 19:16 | XR ---
EXAM DATE: 09/25/2017 7:11 PM EDT AGE/SEX: 67 years / Female INDICATIONS: Post pacemaker. CLINICAL DATA: This is the patient's initial encounter. Patient reports that signs and symptoms have been present for 1 day and indicates a pain score of Nonresponsive. MEDICAL/SURGICAL HISTORY: . Chronic obstructive pulmonary disease. Osteoarthritis. Cholecystect buddy. . COMPARISON: [facility] [place], CHEST 1V SINGLE AP, 09/24/2017. . FINDINGS: Pacer leads overlie right atrium and right ventricle. Heart size normal. No focal consolidation or ef fusion. No pneumothorax. CONCLUSION: Postop pacer placement. No pneumothorax. No active disease. Electronically signed by: Chaz Bailey MD 09/25/2017 7:15 PM EDT
[2017-09-26] MEDS: Morphine Inj 4 MG/ML Vial IV.PUSH PRN ×5 (05:51→21:46)
[2017-09-26] MEDS: Heparin - SQ 10,000 UNITS/ML Vial SQ SCH ×3 (05:51→21:46)
[2017-09-26] MEDS: predniSONE 5 MG Tablet PO SCH ×3 (08:56→17:17)
[2017-09-26] MEDS: Divalproex 500 MG ER Tablet PO SCH (08:56)
[2017-09-26] MEDS: Sodium Chloride 1 GM Tablet PO SCH (08:56)
[2017-09-26] MEDS: FLUoxetine 20 MG Capsule PO SCH (08:56)
--- NOTE | 2017-09-26 09:10 | P.PN ---
Subjective Interval history: 67-year-old female admitted for investigation of her cardiac arrest. Pacemaker was placed yesterday. Patient's chief complaint today is rib pain from undergoing CPR a few days ago when she arrested. The pain has been uncontrolled on [place] and morphine. Physical Exam Vital signs: Vital Signs 09/25/17 12:00 09/25/17 18:04 09/25/17 18:15 Temperature 97.8 F 97.7 F Pulse Rate 64 62 64 Respiratory Rate 18 17 18 Blood Pressure 143/77 H 177/84 H 172/82 H Pulse Oximetry 95 95 98 09/25/17 18:30 09/25/17 18:45 09/25/17 19:00 Temperature 97.8 F 98.2 F Pulse Rate 64 64 66 Respiratory Rate 18 16 18 Blood Pressure 164/99 H 159/64 H 160/72 H Pulse Oximetry 98 95 100 09/25/17 21:45 09/25/17 23:00 09/25/17 23:31 Temperature 98 F Pulse Rate 74 72 66 Respiratory Rate 16 Blood Pressure 150/64 H Pulse Oximetry 100 09/26/17 00:00 09/26/17 01:00 09/26/17 02:00 Temperature Pulse Rate 66 75 65 Respiratory Rate Blood Pressure Pulse Oximetry 09/26/17 03:00 09/26/17 04:00 09/26/17 05:04 Temperature 97.8 F Pulse Rate 69 64 65 Respiratory Rate 16 Blood Pressure 132/57 L Pulse Oximetry 99 09/26/17 06:00 Temperature Pulse Rate 68 Respiratory Rate Blood Pressure Pulse Oximetry Intake & Output 09/25/17 09/26/17 09/26/17 18:59 06:59 18:59 Intake Total 480 / 480 Output Total 700 / 700 Balance -220 / -220 Weight 60 kg Intake: Oral 480 / 480 Output: Urine 700 / 700 Other: Date of Last Bowel Movement 09/22/17 # Bowel Movements 0 Narrative: GENERAL: AAOx3, uncomfortable, in pain, thin SKIN: Warm and dry. No rashes. Left pacemaker site under bandage HEAD: Atruamtic, normocephalic. EYES: No scleral icterus. No injection or drainage. ENT: Moist mucous membranes, patent nares, no erythema of oropharynx. NECK: Supple, trachea midline. No JVD or lymphadenopathy. Normal thyroid. CARDIOVASCULAR: Regular rate and rhythm. No murmurs, gallops, or rubs. RESPIRATORY: Breath sounds clear equal bilaterally. No crackles or wheezes. No accessory muscle use. GASTROINTESTINAL: Abdomen soft, non-tender, nondistended, normal active bowel sounds MUSCULOSKELETAL: No cyanosis, or edema. Anterior and lateral rib tenderness bilaterally NEURO: CN II-XII grossly intact, no focal deficits, no slurring of speech Results - Labs CBC & Chem 7: 09/25/17 05:10 09/25/17 05:10 Laboratory Results - last 24 hr 09/25/17 05:10 Valproic Acid 90 - Imaging Impressions Chest X-Ray 09/25/17 00:00 CONCLUSION: Postop pacer placement. No pneumothorax. No active disease. Assessment and Plan - Plan 67 y/o female with a history of copd, cad, cardiac arrest, anxiety, depression, and s/p loop recorder was sent to the ED by Dr. Still for evaluation of her loop recorder. Patient suffered a cardiac arrest 3 days ago and was admitted to [facility]. . dysthymia on loop recorder Interrogation per [facility] in AM Pacemaker placed yesterday Following on telemetry Appreciate cardiology consult (Dr. Still) Costochondritis, secondary to CPR, not ILDA Morphine and Alsea not helping Added Toradol as needed Increase morphine from 2 mg to 4 mg for breakthrough pain Depression, chronic Continue home medications COPD, chronic Continue home medication prednisone Continue Duonebs as needed DVT prophylaxis Heparin
--- NOTE | 2017-09-26 10:20 | ECG ---
Date Performed: 09/25/2017 Time Performed: 18:41:09 PTAGE: 67 years EKG: Sinus rhythm NORMAL ECG Since the PREVIOUS TRACING , no significant change noted PREVIOUS TRACIN09/24/2017 21.25 DOCTOR: Laura Le Interpretating Date/Time 09/26/2017 10:18:58
[2017-09-26] MEDS: Ketorolac Inj 30 MG/ML (IVP) Vial IV.PUSH PRN ×2 (11:29→17:21)
--- NOTE | 2017-09-26 16:12 | P.PN ---
Subjective Interval history: In pain Doing ok Physical Exam Vital signs: Vital Signs 09/25/17 18:04 09/25/17 18:15 09/25/17 18:30 Temperature 97.7 F Pulse Rate 62 64 64 Respiratory Rate 17 18 18 Blood Pressure 177/84 H 172/82 H 164/99 H Pulse Oximetry 95 98 98 09/25/17 18:45 09/25/17 19:00 09/25/17 21:45 Temperature 97.8 F 98.2 F Pulse Rate 64 66 74 Respiratory Rate 16 18 Blood Pressure 159/64 H 160/72 H Pulse Oximetry 95 100 09/25/17 23:00 09/25/17 23:31 09/26/17 00:00 Temperature 98 F Pulse Rate 72 66 66 Respiratory Rate 16 Blood Pressure 150/64 H Pulse Oximetry 100 09/26/17 01:00 09/26/17 02:00 09/26/17 03:00 Temperature 97.8 F Pulse Rate 75 65 69 Respiratory Rate 16 Blood Pressure 132/57 L Pulse Oximetry 99 09/26/17 04:00 09/26/17 05:04 09/26/17 06:00 Temperature Pulse Rate 64 65 68 Respiratory Rate Blood Pressure Pulse Oximetry 09/26/17 07:00 09/26/17 08:00 09/26/17 09:00 Temperature 97.7 F Pulse Rate 65 64 68 Respiratory Rate 16 Blood Pressure 157/71 H Pulse Oximetry 100 09/26/17 10:00 09/26/17 10:46 09/26/17 11:00 Temperature 97.9 F Pulse Rate 80 68 Respiratory Rate 16 Blood Pressure 142/64 H Pulse Oximetry 97 98 09/26/17 12:00 09/26/17 13:00 09/26/17 14:00 Temperature Pulse Rate 74 63 73 Respiratory Rate Blood Pressure Pulse Oximetry 09/26/17 15:00 Temperature 97.7 F Pulse Rate 67 Respiratory Rate 16 Blood Pressure 130/60 Pulse Oximetry 98 Intake & Output 09/25/17 09/26/17 09/26/17 18:59 06:59 18:59 Intake Total 480 / 480 Output Total 700 / 700 Balance -220 / -220 Weight 60 kg Intake: Oral 480 / 480 Output: Urine 700 / 700 Other: Date of Last Bowel Movement 09/22/17 # Bowel Movements 0 - Constitutional no acute distress - Routine HEENT Exam Head: Present: normocephalic Eye: Present: PERRL ENT: Present: mucous membranes moist - Routine Neck Exam Present: normal carotid upstroke - Routine Respiratory Exam Present: CTA bilaterally - Routine Cardiovascular Exam Present: RRR - Routine Abdominal Exam Present: soft - Routine Neurological Exam Present: alert, oriented X3 Results - Labs CBC & Chem 7: 09/25/17 05:10 09/25/17 05:10 - Imaging Impressions Chest X-Ray 09/25/17 00:00 CONCLUSION: Postop pacer placement. No pneumothorax. No active disease. Assessment and Plan - Assessment (1) Pacemaker Code(s): Z95.0 - Presence of cardiac pacemaker Status: Acute Plan: SP pacemaker. Clean surgical wound Device well functioning Can be DH when ok with managing team (2) Syncope Code(s): R55 - Syncope and collapse Status: Acute - Plan No new episode reported (2) Syncope Qualifiers: Encounter type: sequela
[2017-09-27] MEDS: Ketorolac Inj 30 MG/ML (IVP) Vial IV.PUSH PRN ×2 (00:08→09:47)
[2017-09-27] MEDS: Morphine Inj 4 MG/ML Vial IV.PUSH PRN ×2 (01:24→05:11)
[2017-09-27] MEDS: Heparin - SQ 10,000 UNITS/ML Vial SQ SCH (05:11)
--- NOTE | 2017-09-27 08:42 | P.DS ---
Date of admission: 09/24/17 23:25 Primary care physician: UNKNOWN Brief History from admission: 67 y/o female with a history of copd, cad, cardiac arrest, anxiety, depression, and s/p loop recorder was sent to the ED by Dr. Still for evaluation of her loop recorder. Patient suffered a cardiac arrest 3 days ago and was admitted to [facility]. 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 fib shocked her continued CPR shocked her twice brought her to [facility] where she was admitted, resuscitated, and discharge this a.m. Patient states Dr. Still was concerned that there were episodes of complete heart block and she should go to the hospital. She states the only complaint is the residual chest pain she has from the chest compressions, that is worse with a deep breath and reproducible by palpation. She denies any sob, fever or chills. DS: Medications - Discharge Medications Prescriptions: cephalexin 500 mg PO BID 5 Days #10 cap hydrocodone-acetaminophen 1 tab PO Q6H PRN 3 Days #12 tab PRN Reason: Pain methylprednisolone [Medrol (Ortiz)] 4 mg PO PER PKG DIR #1 dosepack DS: Summary Hospital Course: 67-year-old female admitted for placement of pacemaker following episode of cardiac arrest 3 days prior to admission. She has had a history over the last year of spontaneous loss of consciousness. Electrical heart abnormality was suspected and loop recorder was placed which captured the event. She received a pacemaker 2 days ago and has tolerated the procedure well. Her main complaint is chest pain related to costochondritis secondary to CPR performed on her heart stopped 5 days ago. She was placed on Toradol which relieved the pain with a combination of hydrocodone. She will go home on a combination of hydrocodone and Medrol Dosepak. Dr. Still recommended antibiotics for 3-5 days , Keflex 500 mg twice daily 5 days is written. She has follow-up with her primary and with Dr. Still. - Time Spent with Patient Total time spent providing and/or coordinating discharge services: Less than 30 minutes - Quality: VTE Deep Vein Thrombosis/Pulmonary Embolism Present on Admission: No Exam Vital signs: Vital Signs 09/26/17 09:00 09/26/17 10:00 09/26/17 10:46 Temperature Pulse Rate 68 80 Respiratory Rate Blood Pressure Pulse Oximetry 97 09/26/17 11:00 09/26/17 12:00 09/26/17 13:00 Temperature 97.9 F Pulse Rate 68 74 63 Respiratory Rate 16 Blood Pressure 142/64 H Pulse Oximetry 98 09/26/17 14:00 09/26/17 15:00 09/26/17 16:00 Temperature 97.7 F Pulse Rate 73 67 71 Respiratory Rate 16 Blood Pressure 130/60 Pulse Oximetry 98 09/26/17 17:00 09/26/17 18:00 09/26/17 19:00 Temperature 98.3 F Pulse Rate 73 68 73 Respiratory Rate 16 Blood Pressure 114/62 Pulse Oximetry 98 09/26/17 20:00 09/26/17 21:00 09/26/17 21:16 Temperature Pulse Rate 64 64 Respiratory Rate Blood Pressure Pulse Oximetry 98 09/26/17 22:00 09/26/17 22:15 09/26/17 23:00 Temperature 98 F Pulse Rate 64 64 Respiratory Rate 20 18 Blood Pressure 151/68 H Pulse Oximetry 98 09/27/17 00:00 09/27/17 01:00 09/27/17 01:18 Temperature Pulse Rate 60 65 Respiratory Rate 16 Blood Pressure Pulse Oximetry 09/27/17 02:00 09/27/17 03:00 09/27/17 04:00 Temperature 97.5 F L Pulse Rate 65 68 60 Respiratory Rate 18 Blood Pressure 141/62 H Pulse Oximetry 98 09/27/17 05:00 09/27/17 05:26 09/27/17 06:00 Temperature Pulse Rate 63 60 Respiratory Rate 16 Blood Pressure Pulse Oximetry 09/27/17 08:36 Temperature Pulse Rate Respiratory Rate Blood Pressure Pulse Oximetry 93 L Intake & Output 09/26/17 09/27/17 09/27/17 18:59 06:59 18:59 Intake Total 720 / 720 240 / 240 Output Total 650 / 650 200 / 200 Balance 70 / 70 40 / 40 Weight 61.5 kg Intake: Oral 720 / 720 240 / 240 Output: Urine 650 / 650 200 / 200 Results Procedures completed during hospitalization: Pacemaker 09/25/17 - Impressions ITS Impressions Chest X-Ray 09/25/17 00:00 CONCLUSION: Postop pacer placement. No pneumothorax. No active disease. Discharge Plan - Discharge Disposition Patient Disposition: Discharge Home - Discharge Condition Condition: Good - Discharge Order Discharge Orders: Discharge Order (Routine); Ordered 09/27/17 Ordered By: Luther Meyers - Physicians Team Primary Care Provider: UNKNOWN, Attending Provider: Luther Meyers Other Providers: Gregory Still MD ; Guillermo Dexter MD
[2017-09-27] MEDS: Divalproex 500 MG ER Tablet PO SCH (09:40)
[2017-09-27] MEDS: predniSONE 5 MG Tablet PO SCH ×2 (09:40→12:24)
[2017-09-27] MEDS: FLUoxetine 20 MG Capsule PO SCH (09:40)
[2017-09-27] MEDS: Sodium Chloride 1 GM Tablet PO SCH (09:47)
[2017-10-01 17:54] LABS: CK-MB ND (<5); CK-MM ND (95-100)
--- NOTE | 2017-11-08 14:26 | MP ---
cc: Gregory Still MD DATE OF OPERATION: 09/25/2017 PROCEDURE: 1. Dual chamber____ pacemaker insertion. 2. Loop recorder removal. INDICATIONS FOR PROCEDURE: Ms. Bentley is a 67-year-old female with history of dizziness and syncope previously recorder insertion. Loop interrogation showed multiple pauses and severe bradycardia, also 2:1 AV block. The patient was referred for permanent pacemaker insertion. The risks, the nature and the benefits of the procedure are clearly stated to her. Risks include pneumothorax, cardiac perforation, stroke, need for open heart surgery and even . The patient understood and agreed to proceed. PROCEDURE: After informed consent was obtained, the patient was brought to the EP lab where she was prepped and draped in the usual sterile fashion. Conscious sedation was initiated and maintained throughout the procedure by the anesthesiologist. Once sedation was verified, the left infraclavicular area was entered anesthetized with 2% Xylocaine. Using modified Seldinger technique, the left femoral vein was cannulated on 2 occasions and 2 guidewires were advanced. Then, using 11-blade scalpel, a 2 cm incision was made 2 fingerbreadths below left clavicle. This incision was taken down to the deep fascial layer using Bovie cautery and blunt dissection. device pocket was dissected, then the wire was dissected into the pocket. A 2-0 Vicryl suture was placed around the wire to prevent backbleeding. At this point, over the lateral wire, a 7-Portuguese dilator and introducer were advanced. As dilator and wire were removed, an active fixation right ventricular pacing/sensing lead was advanced. After adequate pacing and sensing threshold obtained, the lead was secured in the pocket using #2 Ethibond suture. Then over the remaining wire, a 7-Portuguese dilator introducer was advanced. The dilator and wire were removed, an active fixation right atrial pacing and sensing lead was advanced. After adequate pacing and sensing threshold obtained, the lead was secured to the pocket using #2 Ethibond suture. At that point, the pocket was copiously solution. The leads were connected to the generator implant and placed into the pocket. I proceeded with would closure. The deep fascial layer was approximated using #2-0 Vicryl suture in a continuous fashion. The subcutaneous layer was approximated with #2-0 Vicryl suture in continuous fashion. The subcuticular layer was approximated with #2-0 Vicryl suture in a continuous fashion. Dermabond adhesive was applied to the wound followed by a sterile pressure dressing. At this point, I did proceed with loop recorder removal. The left parasternal area was anesthetized with 2% Xylocaine. Using an 11-blade scalpel, less than a 1 cm cut was made. Subsequently, the Loop was removed from the pocket using blunt dissection. At that point, the wound was reapproximated using Dermabond and Steri-Strips. No incident to be reported. The patient tolerated the procedure. ESTIMATED BLOOD LOSS: Minimal. 1. loop recorder is a . Please refer to previous dictation. Loop recorder is a model #[id number]; serial #[id number]. 2. permanent pacemaker is a [employer] model #[id number]; serial #[id number]. SENSING: The right atrial pacing sensing lead is a [employer] model 2088TC ; serial number [id number] . The right ventricular pacing sensing lead is a [employer] #[id number] . THRESHOLD: The right atrial pacing bipolar mode was 0.5 volt at 0.5 milliseconds, lead impedance 460 ohms, 4.9 millivolts. The right bipolar mode was 0.75 volt at 0.5 milliseconds and lead impedance 930 ohms. R-wave at 5.9 millivolt. SETTING: The device set in 120 beats per minute. CONCLUSION: Successful loop recorder removal, successful dual-chamber pacemaker insertion. RECOMMENDATIONS: The patient will be transferred to the recovery room; will be observed. When stable, can be discharged home. MD BOB Maher/lasha , 11:51 AM , 12:13 PM
== END 2017-09-27 14:46 | disposition home or self-care (01) ==
LOC: NEDA 21:08 → HCPC 21:08 → NEPC 21:08 → NEPFCDU 09-25 00:55 → HCIS 09-25 15:41 → NEPFCDU 09-25 15:45 → HCIS 09-25 16:01 → HCPC 09-25 19:10
PROVIDERS: ADMIT Family Medicine; ATTEND Family Medicine
DX: I49.01 Ventricular fibrillation; F34.1 Dysthymic disorder; I44.2 Atrioventricular block, complete; Z79.899 Other long term (current) drug therapy; R06.02 Shortness of breath; J44.9 Chronic obstructive pulmonary disease, unspecified; Z87.891 Personal history of nicotine dependence; Z86.74 Personal history of sudden cardiac arrest; I49.5 Sick sinus syndrome; F32.9 Major depressive disorder, single episode, unspecified; R56.9 Unspecified convulsions; R42 Dizziness and giddiness; M94.0 Chondrocostal junction syndrome [Tietze]

== ENCOUNTER 2017-11-05 13:46 | Observation (INO) ==
--- NOTE | 2017-11-05 14:18 | ED ---
HPI General Chief Complaint: Altered Mental Status Stated Complaint: AMS Time Seen by Provider: 11/05/17 14:14 Source: patient and family Mode of arrival: ambulatory Limitations: no limitations History of Present Illness HPI narrative: 67-year-old female patient with history of cardiac dysrhythmias, pacemaker placed by Dr. Brody 2 weeks ago, presents to the ER today brought in by her because she has had general weakness and increased lethargy for the last few days, getting worse. She has had some episodes of heaving but has not vomited up anything. She denies any chest pains, fevers, abdominal pains, or other symptoms. Related Data Home Medications Medication Instructions Recorded Confirmed divalproex 1,000 mg PO DAILY 09/24/17 11/05/17 fluoxetine 20 mg PO DAILY 09/24/17 11/05/17 sodium chloride 2 gm PO HS 09/24/17 11/05/17 Previous Rx's Medication Instructions Recorded methylprednisolone [Medrol (Ortiz)] 4 mg PO PER PKG DIR #1 dosepack 09/27/17 Allergies Allergy/AdvReac Type Severity Reaction Status Date / Time No Known Allergies Allergy Unknown Uncoded 07/19/17 09:49 Review of Systems ROS: all other systems reviewed are negative [facility] Medical History Medical History Basal cell carcinoma (Acute) COPD (chronic obstructive pulmonary disease) (Acute) Cardiac arrest (Acute) Depressed (Acute) Seizures (Acute) Status post placement of implantable loop recorder (Acute) Syncope and collapse (Acute) Surgical History Surgical History History of loop recorder (Acute) Social History Social History Substance History: No History of Abuse Second Hand Smoke Exposure: Yes Smoking Status: Current every day smoker Tobacco Type: Cigarettes How Often Do You Have a Drink Containing Alcohol: Monthly or less Recent Travel in [facility] within the Last 8 Weeks: No Recent Out of Country Travel within the Last 8 Weeks: No Immunization History Tetanus Immunization: <5 Years Exam Narrative Exam Narrative: GENERAL: Well-developed elderly white female patient currently in mild distress. Awake, but lethargic, able to answer questions appropriately. SKIN: Focused skin assessment warm/dry. HEAD: Atraumatic. Normocephalic. EYES: Pupils equal and round. No scleral icterus. No injection or drainage. ENT: No nasal bleeding or discharge. Mucous membranes pink and moist. NECK: Trachea midline. No JVD. Supple. CARDIOVASCULAR: Regular rate and rhythm. No murmur appreciated. RESPIRATORY: No accessory muscle use. Clear to auscultation. Breath sounds equal bilaterally. GASTROINTESTINAL: Abdomen soft, non-tender, nondistended. Hepatic and splenic margins not palpable. MUSCULOSKELETAL: No obvious deformities. No clubbing. No cyanosis. No edema. NEUROLOGICAL: Awake and lethargic. No obvious cranial nerve deficits. Motor grossly within normal limits. Normal speech. PSYCHIATRIC: Lethargic; insight and judgment normal. Course Initial Documented Vital Signs Temperature 97.7 F 11/05/17 13:53 Pulse Rate 82 11/05/17 13:53 Respiratory Rate 17 11/05/17 13:53 Blood Pressure 126/67 11/05/17 13:53 Pulse Oximetry 96 11/05/17 13:53 Last Documented Vital Signs Temperature 97.7 F 11/05/17 13:53 Pulse Rate 82 11/05/17 18:40 Respiratory Rate 18 11/05/17 18:40 Blood Pressure 145/81 H 11/05/17 18:40 Pulse Oximetry 100 11/05/17 18:40 Medical Decision Making MDM Narrative Medical decision making narrative: Lab work, EKG, CAT scan was fairly unremarkable. EKG did not show any significant dysrhythmias currently. Patient became more awake in the ER but her symptoms seem to be waxing and waning. At this point, considering her previous history of seizures, recent history of dysrhythmia, new pacemaker, my plan would be to admit her for further observation and evaluation by cardiology neurology. Case is discussed with Dr. Tubbs for admission. Medical Screen Exam Complete: Yes Emergency Medical Condition: Yes Differential Diagnosis Differential Diagnosis: Dehydration versus electrolyte abnormalities versus acute processes versus sepsis Lab Data Lab results reviewed: Yes I reviewed the patient's lab results. Result diagrams: 11/05/17 14:15 11/05/17 14:15 Lab Results 11/05/17 11/05/17 11/05/17 Range/Units 14:15 14:15 14:15 WBC 8.6 (4.0-11.0) th/mm3 RBC 4.17 (4.00-5.30) mil/mm3 Hgb 13.5 (11.6-15.3) gm/dL Hct 37.8 (35.0-46.0) % MCV 90.6 (80.0-100.0) fL MCH 32.5 (27.0-34.0) pg MCHC 35.8 (32.0-36.0) % RDW 14.2 (11.6-17.2) % Plt Count 338 (150-450) th/mm3 MPV 7.8 (7.0-11.0) fL Neut % (Auto) 56.4 (16.0-70.0) % Lymph % (Auto) 28.9 (9.0-44.0) % Reeves % (Auto) 11.2 H (0.0-8.0) % Eos % (Auto) 2.6 (0.0-4.0) % Baso % (Auto) 0.9 (0.0-2.0) % Neut # (Auto) 4.8 (1.8-7.7) th/mm3 Lymph # (Auto) 2.5 (1.0-4.8) th/mm3 Reeves # (Auto) 1.0 H (0.0-0.9) th/mm3 Eos # (Auto) 0.2 (0.0-0.4) th/mm3 Baso # (Auto) 0.1 (0.0-0.2) th/mm3 WBC Differential . Differential Comment Auto diff final PT 10.4 (9.8-11.6) sec INR 1.0 Ratio APTT 24.9 (24.3-30.1) sec Sodium 131 L (136-145) meq/L Potassium 4.3 (3.5-5.1) meq/L Chloride 93 L (98-107) meq/L Carbon Dioxide 31.2 (21.0-32.0) meq/L Anion Gap 7 (5-15) meq/L BUN 12 (7-18) mg/dL Creatinine 0.77 (0.50-1.00) mg/dL Estimated GFR 74 L (>89) mL/min Random Glucose 70 L (74-106) mg/dL Calcium 8.6 (8.5-10.1) mg/dL Total Bilirubin 0.2 (0.2-1.0) mg/dL AST 6 L (15-37) U/L ALT 8 L (10-53) U/L Alkaline Phosphatase 78 (45-117) U/L Troponin I Less than 0.02 L (0.02-0.05) ng/mL Total Protein 6.9 (6.4-8.2) g/dL Albumin 3.3 L (3.4-5.0) g/dL TSH 0.472 (0.358-3.740) uIU/mL Free T4 (0.76-1.46) ng/dL Free T3 (2.18-3.98) pg/mL 11/05/17 Range/Units 14:15 WBC (4.0-11.0) th/mm3 RBC (4.00-5.30) mil/mm3 Hgb (11.6-15.3) gm/dL Hct (35.0-46.0) % MCV (80.0-100.0) fL MCH (27.0-34.0) pg MCHC (32.0-36.0) % RDW (11.6-17.2) % Plt Count (150-450) th/mm3 MPV (7.0-11.0) fL Neut % (Auto) (16.0-70.0) % Lymph % (Auto) (9.0-44.0) % Reeves % (Auto) (0.0-8.0) % Eos % (Auto) (0.0-4.0) % Baso % (Auto) (0.0-2.0) % Neut # (Auto) (1.8-7.7) th/mm3 Lymph # (Auto) (1.0-4.8) th/mm3 Reeves # (Auto) (0.0-0.9) th/mm3 Eos # (Auto) (0.0-0.4) th/mm3 Baso # (Auto) (0.0-0.2) th/mm3 WBC Differential Differential Comment PT (9.8-11.6) sec INR Ratio APTT (24.3-30.1) sec Sodium (136-145) meq/L Potassium (3.5-5.1) meq/L Chloride (98-107) meq/L Carbon Dioxide (21.0-32.0) meq/L Anion Gap (5-15) meq/L BUN (7-18) mg/dL Creatinine (0.50-1.00) mg/dL Estimated GFR (>89) mL/min Random Glucose (74-106) mg/dL Calcium (8.5-10.1) mg/dL Total Bilirubin (0.2-1.0) mg/dL AST (15-37) U/L ALT (10-53) U/L Alkaline Phosphatase (45-117) U/L Troponin I (0.02-0.05) ng/mL Total Protein (6.4-8.2) g/dL Albumin (3.4-5.0) g/dL TSH (0.358-3.740) uIU/mL Free T4 1.04 (0.76-1.46) ng/dL Free T3 2.72 (2.18-3.98) pg/mL Imaging Data Attestation: I personally reviewed and interpreted this imaging study as follows : Radiologist's impression: Chest X-Ray 11/05/17 14:14 CONCLUSION: Pacer on the left otherwise negative. Head CT 11/05/17 14:14 CONCLUSION: Stable noncontrast head CT. No acute intracranial abnormality is identified. . ECG Data Attestation: I personally reviewed and interpreted this ECG as follows: Interpretation: EKG shows normal sinus rhythm at a rate of 86 bpm with no signs of acute ST elevations or depressions. Discharge Plan Discharge Disposition Patient Disposition: 30 Still Patient Discharge Condition Condition: Good Discharge Details Anticipated Discharge Date: 11/05/17 Diagnosis: Altered mental status Physicians Team ED Provider: Que Lozoya Primary Care Provider: UNKNOWN, Attending Provider: Bety Tubbs Discharge Interventions Interventions: Vital Signs Last Done: 11/05/17 16:10 Status ED Status: Admitted Observation Patient
[2017-11-05 14:58] LABS: Baso # (Auto) 0.1 th/mm3 (0.0-0.2); Baso % (Auto) 0.9 % (0.0-2.0); Eos # (Auto) 0.2 th/mm3 (0.0-0.4); Eos % (Auto) 2.6 % (0.0-4.0); Hematocrit 37.8 % (35.0-46.0); Hemoglobin 13.5 gm/dL (11.6-15.3); Lymph # (Auto) 2.5 th/mm3 (1.0-4.8); Lymph % (Auto) 28.9 % (9.0-44.0); Mean Corpuscular HGB Conc 35.8 % (32.0-36.0); Mean Corpuscular Hemoglobin 32.5 pg (27.0-34.0); Mean Corpuscular Volume 90.6 fL (80.0-100.0); Mean Platelet Volume 7.8 fL (7.0-11.0); Mono % (Auto) 11.2 % (0.0-8.0); Neut # (Auto) 4.8 th/mm3 (1.8-7.7); Neut % (Auto) 56.4 % (16.0-70.0); Platelet Count 338 th/mm3 (150-450); Red Blood Count 4.17 mil/mm3 (4.00-5.30); Red Cell Distribution Width 14.2 % (11.6-17.2); White Blood Count 8.6 th/mm3 (4.0-11.0)
--- NOTE | 2017-11-05 15:04 | XR ---
EXAM DATE: 11/05/2017 2:56 PM EDT AGE/SEX: 67 years / Female INDICATIONS: Weakness and patient had several falls today. CLINICAL DATA: This is the patient's initial encounter. Patient reports that signs and symptoms have been present for 1 day and indicates a pain score of 0/10. MEDICAL/SURGICAL HISTORY: None. Pacemaker. COMPARISON: [facility], CHEST 1V SINGLE AP, 09/25/2017. . FINDINGS: Pacemaker on the left. Lungs are clear. The heart and pulmonary vascularity are normal. The portion o f the bony skeleton visualized is unremarkable. CONCLUSION: Pacer on the left otherwise negative. Electronically signed by: Wade Nieves MD 11/05/2017 3:02 PM EDT
[2017-11-05 15:16] LABS: Activated Partial Thrombo Time 24.9 sec (24.3-30.1); Alanine Aminotransferase 8 U/L (10-53); Albumin 3.3 g/dL (3.4-5.0); Anion Gap 7 meq/L (5-15); Aspartate Aminotransferase 6 U/L (15-37); Blood Urea Nitrogen 12 mg/dL (7-18); Calcium 8.6 mg/dL (8.5-10.1); Carbon Dioxide 31.2 meq/L (21.0-32.0); Chloride 93 meq/L (98-107); Glomerular Filtration Rate 74 mL/min (>89); Glucose,Random 70 mg/dL (74-106); Potassium 4.3 meq/L (3.5-5.1); Prothrombin Time 10.4 sec (9.8-11.6); Sodium 131 meq/L (136-145)
[2017-11-05 15:25] LABS: Alkaline Phosphatase 78 U/L (45-117); Thyroid Stimulating Hormone 0.472 uIU/mL (0.358-3.740); Total Protein 6.9 g/dL (6.4-8.2)
[2017-11-05] MEDS ORDERED: Morphine Sulfate Inj 2 MG/ML Vial IV.PUSH ONE ×2 (15:48→23:09)
[2017-11-05 17:09] LABS: Free T4 (Free Thyroxine) 1.04 ng/dL (0.76-1.46); Triiodothyronine (T3) Free 2.72 pg/mL (2.18-3.98)
--- NOTE | 2017-11-05 17:22 | CT ---
EXAM DATE: 11/05/2017 5:10 PM EDT AGE/SEX: 67 years / Female INDICATIONS: Altered mental status CLINICAL DATA: This is the patient's initial encounter. Patient reports that signs and symptoms have been present for 1 day and indicates a pain score of Nonresponsive. MEDICAL/SURGICAL HISTORY: Seizures. syncope Pacemaker. RADIATION DOSE: 40.86 CTDI (mGy) COMPARISON: [facility] [place], [place] BRAIN W/O CONTRAST, 11/01/2015. . TECHNIQUE: CT of the head without contrast. Using automated exposure control and adjustment of the mA and/or kV according to patient size, radiation dose was kept as low as reasonably achievable to ob tain optimal diagnostic quality images. DICOM format image data is available electronically for revi ew and comparison. FINDINGS: Cerebrum: The ventricles are normal. No midline shift, mass lesion, hemorrhage or acute infarction. No extraaxial fluid collections are seen. Posterior Fossa: The cerebellum and brainstem demonstrate no acute abnormality. The 4th ventricle is midline. The cerebellopontine angle is within normal limits. Extracranial: The visualized sinuses are clear. Skull: The calvaria is intact. No skull fracture. CONCLUSION: Stable noncontrast head CT. No acute intracranial abnormality is identified. . Electronically signed by: Sarmad Stein MD 11/05/2017 5:20 PM EDT
[2017-11-05] MEDS ORDERED: Acetaminophen 325 MG Tablet PO PRN (18:24)
[2017-11-05] MEDS ORDERED: Bisacodyl 10 MG Supp RECTAL PRN (18:24)
[2017-11-05 19:02] LABS: Bilirubin,Urine Negative (Negative); Clarity,Urine Clear (Clear); Color,Urine Yellow (Yellw/Straw); Glucose,Urine (UA) Negative (Negative); Leukocyte Esterase,Urine Negative (Negative); Mucus,Urine Few /lpf (Occasional); Nitrite,Urine Negative (Negative); Specific Gravity,Urine 1.019 (1.002-1.035); Squamous Epithelial Cell,Urine <1 /hpf (0-5)
--- NOTE | 2017-11-05 19:09 | P.HPIM ---
History of Present Illness Service: [facility] Primary Care Physician: UNKNOWN Chief Complaint: Fell 3 times today, altered mental status History of Present Illness: Patient is a 67 years old female with past medical history of COPD, CAD, cardiac arrest, anxiety, depression, loop recorder and cardiac arrhythmia with recent pacemaker placement with Dr. Still 2 weeks. Patient had a recent cardiac arrest and was admitted at [facility] in September 27, 2017 patient was found to have V. fib was shocked 2 times and with continued CPR. Today patient presented to the ED after falling 3 times at home and altered mental status with general weakness and increased lethargy for the past few days days. Patient lying in bed complaining of lower back pain of 10 out of 10 without any radiation. Denies any dizziness, nausea or vomiting. Denies any shortness of breath. Patient alert and oriented 3, however drifting during conversation. Unable to provide the whole medical history and was obtained from the past medical records. Family at bedside reported to be siblings but unable to provide any history. - Diagnosis (1) Metabolic encephalopathy (2) Chronic, continuous use of opioids (3) Altered mental status Review of Systems All other systems reviewed negative except as stated in HPI PMFSH - History History Provided By: Patient - Medical History Medical History: Medical History (Last Updated 11/05/17 @ 19:05 by GRAY Long) Anxiety CAD (coronary artery disease) Basal cell carcinoma COPD (chronic obstructive pulmonary disease) Cardiac arrest Depressed Seizures Status post placement of implantable loop recorder Syncope and collapse - Surgical History Surgical History: Surgical History (Last Updated 11/05/17 @ 19:06 by GRAY Long) S/P placement of cardiac pacemaker History of loop recorder - Family History Family History: Family History (Last Updated 11/05/17 @ 19:08 by GRAY Long) Mother Family history of colon cancer Father Liver cancer Brother Lung cancer - Social History I have reviewed the patient's Social History: Yes - Tobacco History Second Hand Smoke Exposure: Yes Tobacco Use In Past 30 Days: Yes Smoking Status: Former smoker Tobacco Type: Cigarettes Packs Per Day: 1 Years Smoked: 3 - Alcohol History How Often Do You Have a Drink Containing Alcohol: Monthly or less - Substance Use History Substance History: No History of Abuse - Travel History Recent Travel in the [place] Within the Last 8 Weeks: No Recent Travel Out of the Country Within the Last 8 Weeks: No - Immunization History Tetanus Immunization: <5 Years Medications and Allergies Active Medications: Active Medications Acetaminophen (Tylenol) 650 mg PO Q4H PRN PRN Reason: Temp > 100.4 Al Hydroxide/Mg Hydroxide (Milk Of Magnesia Liq) 30 ml PO Q12H PRN PRN Reason: Mild Constipation Bisacodyl (Dulcolax Supp) 10 mg RECTAL DAILY PRN PRN Reason: SEVERE CONSITIPATION Sodium Chloride (Ns Inj) 1,000 mls @ 75 mls/hr IV.CONT .[id number] MAJOR Lactulose (Lactulose Liq) 30 ml PO DAILY PRN PRN Reason: SEVERE CONSITIPATION Ondansetron HCl (Zofran Inj) 4 mg IV.PUSH Q6H PRN PRN Reason: NAUSEA OR VOMITING Senna/Docusate Sodium (Ashley-Colace) 1 tab PO BID MAJOR Sennosides (Senokot) 17.2 mg PO Q12H PRN PRN Reason: Moderate Constipation Sodium Chloride (Ns Flush) 2 ml IV.FLUSH PRN PRN PRN Reason: FLUSH AFTER USING IV ACCESS Allergies Allergy/AdvReac Type Severity Reaction Status Date / Time No Known Allergies Allergy Unknown Uncoded 07/19/17 09:49 Home Medications Medication Instructions Recorded Confirmed Type divalproex 1,000 mg PO DAILY 09/24/17 11/05/17 History fluoxetine 20 mg PO DAILY 09/24/17 11/05/17 History sodium chloride 2 gm PO HS 09/24/17 11/05/17 History Exam Vital signs: Vital Signs 11/05/17 13:53 11/05/17 13:55 11/05/17 14:14 Temperature 97.7 F Pulse Rate 82 85 Respiratory Rate 17 18 Blood Pressure 126/67 126/67 Pulse Oximetry 96 95 97 11/05/17 16:10 11/05/17 18:40 Temperature Pulse Rate 85 82 Respiratory Rate 17 18 Blood Pressure 141/65 H 145/81 H Pulse Oximetry 100 100 Intake & Output 11/04/17 11/05/17 11/05/17 18:59 06:59 18:59 Weight 58.967 kg Results - Labs CBC & Chem 7: 11/05/17 14:15 11/05/17 14:15 Labs: Short CBC 11/05/17 Range/Units 14:15 WBC 8.6 (4.0-11.0) th/mm3 Hgb 13.5 (11.6-15.3) gm/dL Hct 37.8 (35.0-46.0) % Plt Count 338 (150-450) th/mm3 BMP 11/05/17 14:15 Sodium 131 L Potassium 4.3 Chloride 93 L Carbon Dioxide 31.2 BUN 12 Creatinine 0.77 Calcium 8.6 Cardiac Enzymes 11/05/17 Range/Units 14:15 Troponin I Less than 0.02 L (0.02-0.05) ng/mL Liver Function 11/05/17 Range/Units 14:15 Total Bilirubin 0.2 (0.2-1.0) mg/dL AST 6 L (15-37) U/L ALT 8 L (10-53) U/L Alkaline Phosphatase 78 (45-117) U/L Albumin 3.3 L (3.4-5.0) g/dL - Imaging Impressions Chest X-Ray 11/05/17 14:14 CONCLUSION: Pacer on the left otherwise negative. Head CT 11/05/17 14:14 CONCLUSION: Stable noncontrast head CT. No acute intracranial abnormality is identified. . Caprini VTE Risk Assessment Caprini VTE Risk Assessment: No/Low Risk (score <= 1) Caprini Risk Assessment Model: Point Value = 1 Point Value = 2 Point Value = 3 Point Value = 5 Age 41-60 Minor surgery BMI > 25 kg/m2 Swollen legs Varicose veins or History of unexplained or recurrent spontaneous Oral contraceptives or hormone replacement Sepsis (< 1 month) Serious lung disease, including pneumonia (< 1 month) Abnormal pulmonary function Acute myocardial infarction Congestive heart failure (< 1 month) History of inflammatory bowel disease Medical patient at bed rest Age 61-74 Arthroscopic surgery Major open surgery (> 45 min) Laparoscopic surgery (> 45 min) Malignancy Confined to bed (> 72 hours) Immobilizing plaster cast Central venous access Age >= 75 History of VTE Family history of VTE Factor V Leiden Prothrombin [id number] Lupus anticoagulant Anticardiolipin antibodies Elevated serum homocysteine Heparin-induced thrombocytopenia Other congenital or acquired thrombophilia Stroke (< 1 month) Elective arthroplasty Hip, pelvis, or leg fracture Acute spinal cord injury (< 1 month) Prophylaxis Regimen: Total Risk Factor Score Risk Level Prophylaxis Regimen 0-1 Low Early ambulation 2 Moderate Order ONE of the following: *Sequential Compression Device (SCD) *Heparin 5000 units SQ BID 3-4 Higher Order ONE of the following medications: *Heparin 5000 units SQ TID *Enoxaparin/Lovenox 40 mg SQ daily (WT < 150 kg, CrCl > 30 mL/min) *Enoxaparin/Lovenox 30 mg SQ daily (WT < 150 kg, CrCl > 10-29 mL/min) *Enoxaparin/Lovenox 30 mg SQ BID (WT < 150 kg, CrCl > 30 mL/min) AND/OR *Sequential Compression Device (SCD) 5 or more Highest Order ONE of the following medications: *Heparin 5000 units SQ TID (Preferred with Epidurals) *Enoxaparin/Lovenox 40 mg SQ daily (WT < 150 kg, CrCl > 30 mL/min) *Enoxaparin/Lovenox 30 mg SQ daily (WT < 150 kg, CrCl > 10-29 mL/min) *Enoxaparin/Lovenox 30 mg SQ BID (WT < 150 kg, CrCl > 30 mL/min) AND *Sequential Compression Device (SCD) Assessment and Plan - Assessment (1) Metabolic encephalopathy Code(s): G93.41 - Metabolic encephalopathy Status: Acute (2) Chronic, continuous use of opioids Code(s): F11.90 - Opioid use, unspecified, uncomplicated Status: Acute (3) Altered mental status Code(s): R41.82 - Altered mental status, unspecified Status: Acute - Plan Patient is a 67 years old female with past medical history of COPD, CAD, cardiac arrest, anxiety, depression, loop recorder, and recent pacemaker placement for cardiac dysrhythmias. Presented to the ED for increased weakness and lethargy the last few days that is getting worse and had fallen 3 times toda. Metabolic encephalopathy with questionable syncope, on chronic opioid use Rule out infection, will send for urine -Neuro checks every 4 -Cardiac telemetry monitoring -Monitor labs CBC and BMP Acute kidney injury/hyponatremia/dehydration -Start IV fluid normal saline at 75 an hour -Monitor for BMP -Head CT with no acute findings -Chest x-ray with no acute findings Unwitnessed fall, questionable syncope with recent pacemaker -Neuro checks, -Physical therapy evaluation -Pacemaker interrogation Chronic pain, status post fall complaining of lower back pain -Lumbar spine x-ray -Limit narcotics today as patient is lethargic History of cardiac dysrhythmia status post pacemaker placement -pacemaker check/interrogation -Placed on cardiac telemetry for heart rate monitoring Serial EKG and troponin, EKG reviewed within normal limits History of CAD, denies any chest pain -Continue current medication DVT prophylaxis: SCD's Discussed Condition With: ED Nurse Family/brother/sister
--- NOTE | 2017-11-05 20:09 | XR ---
EXAM DATE: 11/05/2017 7:22 PM EDT AGE/SEX: 67 years / Female INDICATIONS: Lower back pain with unknown injury. CLINICAL DATA: This is the patient's initial encounter. Patient reports that signs and symptoms have been present for 1 day and indicates a pain score of Nonresponsive. MEDICAL/SURGICAL HISTORY: Non-responsive. Non-responsive. COMPARISON: No prior exams available for comparison. FINDINGS: AP and lateral views of the lumbar spine were obtained and demonstrate 5 nonrib-bearing lumbar-type v ertebra with mild to moderate scoliosis. Diffuse degenerative disc changes noted with disc space narr owing and hypertrophic change. There are degenerative changes involving the lower facet joints. The s acrum is intact. Vascular calcifications are present. The patient is status post cholecystectomy. Is mild osteopenia. CONCLUSION: 1. Diffuse degenerative disc changes. 2. Degenerative joint changes involving the lower facets. 3. Osteopenia with no acute fracture or malalignment. 4. Mild to moderate scoliosis. Electronically signed by: Carlos Aviles MD 11/05/2017 8:07 PM EDT
[2017-11-05] MEDS: Sod Chloride 0.9% Inj 1,000 ML IV.CONT SCH (21:05)
[2017-11-05] MEDS: Senna/Docusate Sodium 8.6/50 MG Tablet PO SCH (23:00)
[2017-11-06 07:54] LABS: Anion Gap 8 meq/L (5-15); Blood Urea Nitrogen 13 mg/dL (7-18); Calcium 8.2 mg/dL (8.5-10.1); Carbon Dioxide 27.7 meq/L (21.0-32.0); Chloride 101 meq/L (98-107); Glomerular Filtration Rate Greater Than 89 mL/min (>89); Glucose,Random 80 mg/dL (74-106); Potassium 4.1 meq/L (3.5-5.1); Sodium 137 meq/L (136-145)
[2017-11-06 08:07] LABS: Valproic Acid 123 mcg/mL (50-100)
[2017-11-06] MEDS: FLUoxetine 20 MG Capsule PO SCH (10:12)
[2017-11-06] MEDS: Senna/Docusate Sodium 8.6/50 MG Tablet PO SCH (10:13)
[2017-11-06] MEDS: Sod Chloride 0.9% Inj 1,000 ML IV.CONT SCH (10:19)
[2017-11-06] MEDS ORDERED: Acetaminophen 325 MG Tablet PO PRN (11:15)
[2017-11-06] MEDS ORDERED: Naloxone Inj 0.4 MG/ML Vial IV.PUSH PRN (11:15)
[2017-11-06] MEDS: Divalproex 500 MG ER Tablet PO SCH (11:45)
--- NOTE | 2017-11-06 13:42 | CT ---
EXAM DATE: 11/06/2017 1:36 PM EDT AGE/SEX: 67 years / Female INDICATIONS: Multiple falls CLINICAL DATA: This is the patient's initial encounter. Patient reports that signs and symptoms have been present for 1 day and indicates a pain score of 5/10. MEDICAL/SURGICAL HISTORY: Cardiovascular disease. Chronic obstructive pulmonary disease. Seiz ures. Nephrostomy tube, right. RADIATION DOSE: 17.80 CTDI (mGy) COMPARISON: No prior exams available for comparison. TECHNIQUE: Contiguous axial images were obtained using helical multirow detector technique. The vol umetric data was post-processed with multiplanar reconstruction in oblique axial, sagittal, and coron al planes. Using automated exposure control and adjustment of the mA and/or kV according to patient s ize, radiation dose was kept as low as reasonably achievable to obtain optimal diagnostic quality doris ges. DICOM format image data is available electronically for review and comparison. FINDINGS: ALIGNMENT: Vertebral bodies are satisfactorily aligned without evidence of listhesis. FACET AND OSSEOUS STRUCTURES: Vertebral body height is well-maintained. There is no evidence of acut e fracture, or destructive changes. There is no significant facet arthropathy. INTERVERTEBRAL DISC SPACES: Moderate degenerative disc disease is identified at C4-5, C5-6 and C6-7. There is disc space narrowing with marginal spondylosis. Mild foraminal encroachment is identified o n the right at C4-5 and bilaterally at C5-6. NEUROLOGIC STRUCTURES: The spinal cord and nerve roots appear normal. There is no evidence of deb eder. . CONCLUSION: 1. No evidence of traumatic bony or soft tissue injury. 2. Moderate degenerative disc disease at C4-5, C5-6 and C6-7. 3. No evidence of spinal stenosis or spinal cord abnormality. Electronically signed by: Geoff Bowling MD 11/06/2017 1:41 PM EDT
--- NOTE | 2017-11-06 13:48 | CT ---
EXAM DATE: 11/06/2017 1:41 PM EDT AGE/SEX: 67 years / Female INDICATIONS: multiple falls CLINICAL DATA: This is the patient's initial encounter. Patient reports that signs and symptoms have been present for 1 day and indicates a pain score of 5/10. MEDICAL/SURGICAL HISTORY: Cardiovascular disease. Chronic obstructive pulmonary disease. Seizures . Pacemaker. RADIATION DOSE: 19.32 CTDI (mGy) COMPARISON: No prior exams available for comparison. TECHNIQUE: Contiguous axial images were acquired using a multirow detector CT scanner without contra st. Multiplanar reconstruction in the sagittal and coronal planes was performed. Using automated exp osure control and adjustment of the mA and/or kV according to patient size, radiation dose was kept a s low as reasonably achievable to obtain optimal diagnostic quality images. DICOM format image data is available electronically for review and comparison. FINDINGS: ALIGNMENT: Vertebral bodies are satisfactorily aligned without evidence of listhesis. FACET AND OSSEOUS STRUCTURES: Vertebral body height is well-maintained. There is no evidence of acut e fracture, or destructive changes. There is no significant facet arthropathy. INTERVERTEBRAL DISC SPACES: Mild degenerative disc disease with marginal spondylosis is noted. There is no evidence of disc herniation. NEUROLOGIC STRUCTURES: The spinal cord and nerve roots appear normal. There is no evidence of deb eder. . CONCLUSION: 1. No evidence of traumatic soft tissue or bony injury. 2. Mild degenerative disc disease with spondylosis. Electronically signed by: Geoff Bowling MD 11/06/2017 1:46 PM EDT
--- NOTE | 2017-11-06 14:07 | ECG ---
Date Performed: 11/05/2017 Time Performed: 13:58:28 PTAGE: 67 years EKG: Sinus rhythm NORMAL ECG Since the PREVIOUS TRACING , no significant change noted PREVIOUS TRACIN09/25/2017 18.41 DOCTOR: Piero Ceron Interpretating Date/Time 11/06/2017 14:04:02
--- NOTE | 2017-11-06 14:22 | CT ---
EXAM DATE: 11/06/2017 2:13 PM EDT AGE/SEX: 67 years / Female INDICATIONS: Multiple falls CLINICAL DATA: This is the patient's initial encounter. Patient reports that signs and symptoms have been present for 1 day and indicates a pain score of 5/10. MEDICAL/SURGICAL HISTORY: Cardiovascular disease. Chronic obstructive pulmonary disease. Seizures . Pacemaker. RADIATION DOSE: 19.32 CTDI (mGy) ; Combined studies COMPARISON: No prior exams available for comparison. TECHNIQUE: Contiguous axial images were acquired with a multirow detector CT scanner without contras t. Multiplanar reconstructions in the sagittal and coronal plane were also performed. Using automate d exposure control and adjustment of the mA and/or kV according to patient size, radiation dose was k ept as low as reasonably achievable to obtain optimal diagnostic quality images. DICOM format image data is available electronically for review and comparison. FINDINGS: ALIGNMENT: Vertebral bodies are satisfactorily aligned without evidence of listhesis. FACET AND OSSEOUS STRUCTURES: Vertebral body height is well-maintained. There is no evidence of acut e fracture, or destructive changes. [id number] facet arthropathy is noted.. INTERVERTEBRAL DISC SPACES: Degenerative disc disease ranging from mild to moderately severe is noted. L1-2: Mild degenerative disc disease with marginal spondylosis. There is no evidence of disc herniati on foraminal encroachment or spinal stenosis. L2-3: Moderate to severe degenerative disc disease with disc space narrowing and marginal spondylosis . A right posterior lateral disc osteophyte complex is causing moderate foraminal encroachment. There is mild anterior epidural effacement without significant spinal stenosis. L3-4: Moderate degenerative disc disease with mild broad-based disc protrusion. Foraminal encroachmen t is noted. L4-5: Moderate degenerative disc disease with disc space narrowing and marginal spondylosis. There is a broad-based disc osteophyte complex with anterior epidural effacement and mild bilateral foraminal encroachment. There is no significant spinal stenosis. L5-S1: Moderate degenerative disc disease with disc space narrowing. There is a broad-based central d isc protrusion with anterior epidural effacement. Significant left foraminal encroachment is noted. NEUROLOGIC STRUCTURES: Significant left foraminal encroachment with potentially nerve root compressio n secondary to marginal disc osteophyte complex at L5-S1 . CONCLUSION: 1. Degenerative disc disease with foraminal stenosis as described. 2. No evidence of traumatic bony or soft tissue injury. 3. Broad-based disc protrusion at L3-4. 4. Posterior broad-based disc osteophyte complex with anterior epidural effacement at L4-5. Electronically signed by: Geoff Bowling MD 11/06/2017 2:21 PM EDT
[2017-11-06] MEDS: Morphine Inj 4 MG/ML Vial IV.PUSH PRN (15:48)
--- NOTE | 2017-11-06 17:34 | P.DCO ---
- Physical Therapy Order: Evaluate and treat, Improve ambulation, Strength and gait training - Home Health Nursing Order: Medical education, Signs/symptoms of disease process, Medication education-adverse effect, Nursing assessment with vital signs - Certification I have seen patient Marika Bentley on 11/06/17. My clinical findings support the need for the requested home health care services because: Limited mobility due to disease progression, Patient has SOB, Deconditioned with increased weakness, Medication compliance is questionable, Limited ability to care for self, Impaired cognition/judgement, High risk of falls I certify that my clinical findings support that this patient is homebound because: Impaired cognitive ability/safety, Hx COPD - exertion dyspnea/weakness, Unsteady gait/balance, Unsafe to leave home unassisted
--- NOTE | 2017-11-06 17:41 | P.PN ---
Subjective Interval history: Patient is seen sitting in bed. Her is present at bedside. Patient denies any further episodes of syncope but tells me that she remains weak. She is alert and oriented 3. She does continue to complain of pain throughout her entire spine that has been worse since falling on it. She does have a history of chronic pain. Denies any chest pain or shortness of breath. No nausea vomiting or diarrhea. Physical Exam Vital signs: Vital Signs 11/05/17 18:40 11/05/17 19:30 11/05/17 20:00 Temperature 97.5 F L Pulse Rate 82 80 85 Respiratory Rate 18 16 16 Blood Pressure 145/81 H 103/50 L 111/66 Pulse Oximetry 100 97 96 11/05/17 23:45 11/06/17 04:00 11/06/17 05:15 Temperature 97.7 F 97.7 F 97.7 F Pulse Rate 93 H 93 H 94 H Respiratory Rate 16 16 16 Blood Pressure 142/69 H 142/69 H 142/82 H Pulse Oximetry 94 L 98 11/06/17 08:00 11/06/17 11:45 11/06/17 11:48 Temperature 97.4 F L 97.7 F Pulse Rate 89 92 H Respiratory Rate 18 18 18 Blood Pressure 123/89 128/82 Pulse Oximetry 98 97 11/06/17 13:21 11/06/17 16:00 Temperature 97.5 F L Pulse Rate 91 H 73 Respiratory Rate 17 17 Blood Pressure 111/52 L Pulse Oximetry 99 Intake & Output 11/05/17 11/06/17 11/06/17 18:59 06:59 18:59 Intake Total 0 / 0 1000 / 1000 Balance 0 / 0 1000 / 1000 Weight 58.967 kg 58.967 kg Intake: IV 1000 / 1000 NS Inj 1,000 ML @ 75 mls/hr IV. 1000 / 1000 CONT .[id number] [facility] Rx#:[id number] Oral 0 / 0 Other: # Voids 2 Weight On Admission 58.967 kg Narrative: GENERAL: Thin, well-developed adult female in no obvious distress. SKIN: Warm and dry. HEAD: Atraumatic. Normocephalic. CARDIOVASCULAR: Regular rate and rhythm. RESPIRATORY: No accessory muscle use. Wheeze. Breath sounds equal bilaterally. GASTROINTESTINAL: Abdomen soft, non-tender, non-distended. Positive bowel sounds. MUSCULOSKELETAL: Extremities without clubbing, cyanosis, or edema. No obvious deformities. NEUROLOGICAL: Awake and alert. No obvious cranial nerve deficits. Motor grossly within normal limits. Normal speech. PSYCHIATRIC: Appropriate mood and affect; insight and judgment good. - Urinary Catheter Management Straight Cath placed during this visit: no Reason for continuing: Not indwelling catheter Results - Labs CBC & Chem 7: 11/05/17 14:15 11/06/17 06:30 Laboratory Results - last 24 hr 11/05/17 11/05/17 11/06/17 18:15 21:36 06:30 Sodium 137 Potassium 4.1 Chloride 101 D Carbon Dioxide 27.7 Anion Gap 8 BUN 13 Creatinine 0.63 Estimated GFR Greater than 89 Random Glucose 80 Calcium 8.2 L Troponin I Less than 0.02 L Urine Color Yellow Urine Clarity Clear Urine pH 6.0 Ur Specific [place] 1.019 Urine Protein Negative Urine Glucose (UA) Negative Urine Ketones Trace H Urine Occult Blood Negative Urine Nitrate Negative Urine Bilirubin Negative Urine Urobilinogen Less than 2 Ur Leukocyte Esterase Negative Urine RBC 1 Urine WBC 1 Ur Squamous Epith Cells <1 Urine Mucus Few H Micro UA Comment Culture not ind Ur Microscopic Review Not Reportable Urine Culture Comments Culture not ind Valproic Acid 123 H* Microbiology 11/05/17 14:20 Blood - Peripheral Aerobic Blood Culture - Preliminary No growth in 1 day 11/05/17 14:20 Blood - Peripheral Anaerobic Blood Culture - Preliminary No growth in 1 day 11/05/17 14:15 Blood - Peripheral Aerobic Blood Culture - Preliminary No growth in 1 day 11/05/17 14:15 Blood - Peripheral Anaerobic Blood Culture - Preliminary No growth in 1 day - Imaging Impressions Lumbar Spine X-Ray 11/05/17 00:00 CONCLUSION: 1. Diffuse degenerative disc changes. 2. Degenerative joint changes involving the lower facets. 3. Osteopenia with no acute fracture or malalignment. 4. Mild to moderate scoliosis. Cervical Spine CT 11/06/17 00:00 CONCLUSION: 1. No evidence of traumatic bony or soft tissue injury. 2. Moderate degenerative disc disease at C4-5, C5-6 and C6-7. 3. No evidence of spinal stenosis or spinal cord abnormality. Lumbar Spine CT 11/06/17 00:00 CONCLUSION: 1. Degenerative disc disease with foraminal stenosis as described. 2. No evidence of traumatic bony or soft tissue injury. 3. Broad-based disc protrusion at L3-4. 4. Posterior broad-based disc osteophyte complex with anterior epidural effacement at L4-5. Thoracic Spine CT 11/06/17 00:00 CONCLUSION: 1. No evidence of traumatic soft tissue or bony injury. 2. Mild degenerative disc disease with spondylosis. Assessment and Plan - Assessment (1) Physical deconditioning Code(s): R53.81 - Other malaise Status: Acute (2) Unstable gait Code(s): R26.81 - Unsteadiness on feet Status: Acute - Plan Patient is a 67 years old female with past medical history of COPD, CAD, cardiac arrest, anxiety, depression, loop recorder, and recent pacemaker placement for cardiac dysrhythmias. Presented to the ED for increased weakness and lethargy the last few days that is getting worse and had fallen 3 times toda. Metabolic encephalopathy with questionable syncope, on chronic opioid use Rule out infection, will send for urine -urine negative -Neuro checks every 4 -Cardiac telemetry monitoring -Monitor labs CBC and BMP Acute kidney injury/hyponatremia/dehydration -Start IV fluid normal saline at 75 an hour -Monitor for BMP -Head CT with no acute findings -Chest x-ray with no acute findings Unwitnessed fall, questionable syncope with recent pacemaker -Neuro checks, -Physical therapy evaluation -patient will need home health/PT Chronic pain, status post fall complaining of lower back pain -Lumbar spine x-ray showed multiple degenerative changes; will order CT of spine due to continued complaint of pain -Continue narcotics for pain management -patient is on scheduled hydrocodone at home. [place] database consulted. History of cardiac dysrhythmia status post pacemaker placement -pacemaker check/interrogation -Placed on cardiac telemetry for heart rate monitoring Serial EKG and troponin, EKG reviewed within normal limits History of CAD, denies any chest pain -Continue current medication Hyponatremia -Chronic; patient reports 2 g sodium daily at home. Possibly related to Prozac -Monitor DVT prophylaxis: SCD's
--- NOTE | 2017-11-06 19:07 | MB ---
cc: Gregory Still MD DATE: 11/06/2017 REASONS FOR CONSULTATION: Fall, possible syncopal episode and altered mental status. HISTORY OF PRESENT ILLNESS: Mrs. Bentley is a 67-year-old female with history of COPD, high blood pressure, AV block - previous Loop recorder, previous permanent pacemaker implantation. Admitted to the emergency room due to fall . During hospitalization, no significant abnormalities seen. The patient is stable. Confused time to time. Asking for morphine most of the time and I was consulted for evaluation and management. The chart was reviewed. The patient was evaluated. ALLERGIES: None. SOCIAL HISTORY: Negative for smoking and drinking. FAMILY HISTORY: Noncontributory to her current medical condition. MEDICATIONS: Currently, she is on: 1. Acetaminophen. 2. Madill. 3. DuoNeb. 4. Prozac 20 mg daily. 5. Zofran p.r.n. 6. Senokot. REVIEW OF SYSTEMS: She refers some back pain where she was lying on the floor, but no chest pain. No dizziness. No syncope. PHYSICAL EXAMINATION: GENERAL: The patient was alert and fully oriented, asking for morphine because she felt dizzy only once, is the only thing that gets rid of her pain. VITAL SIGNS: Blood pressure 111/52, pulse 73, respiratory rate 18. LUNGS: Ventilated. CARDIOVASCULAR: S1, S2. Regular. No gallop. ABDOMEN: Soft. No mass. No bruits. The patient is cachectic. EXTREMITIES: No edema. ELECTROCARDIOGRAM: Sinus rhythm. No acute ST and T-wave changes. LABORATORY DATA: Hemoglobin 13, white blood cell 8.6. INR 1.0. Potassium 4.1, creatinine 0.63. Troponin 0.02. ASSESSMENT AND RECOMMENDATIONS: Mrs. Bentley is currently stable. I had a long conversation with her . Apparently, she did have loss of consciousness. She lost her equilibrium. was talking about Mrs. Bentley was having some tremor time to time. Apparently, a neurologic evaluation will be necessary. For now, I will keep on the current management. Further, a CT scan indicated no significant fracture. The permanent pacemaker will be interrogated. Mrs. Bentley can be discharged home whenever it is okay with the managing team. I will follow her if necessary during the hospitalization. MD BOB Maher/pw/do , 05:15 PM , 05:25 PM
[2017-11-07] MEDS: Sod Chloride 0.9% Inj 1,000 ML IV.CONT SCH ×2 (00:04→14:39)
[2017-11-07] MEDS: Senna/Docusate Sodium 8.6/50 MG Tablet PO SCH ×2 (00:04→08:51)
[2017-11-07] MEDS: Morphine Inj 4 MG/ML Vial IV.PUSH PRN (05:22)
--- NOTE | 2017-11-07 08:42 | P.PNCA ---
Subjective Interval history: Continues to complain of pain this morning. States they are not providing her with her home pain medication. Physical Exam Vital signs: Vital Signs 11/06/17 11:45 11/06/17 11:48 11/06/17 13:21 Temperature 97.7 F Pulse Rate 92 H 91 H Respiratory Rate 18 18 17 Blood Pressure 128/82 Pulse Oximetry 97 11/06/17 16:00 11/06/17 17:50 11/06/17 19:00 Temperature 97.5 F L Pulse Rate 73 74 Respiratory Rate 17 Blood Pressure 111/52 L Pulse Oximetry 99 94 L 11/06/17 19:15 11/06/17 19:48 11/07/17 00:00 Temperature 98.1 F 98.7 F Pulse Rate 79 77 70 Respiratory Rate 18 16 17 Blood Pressure 119/59 L 148/68 H Pulse Oximetry 97 94 L 11/07/17 00:04 11/07/17 00:35 11/07/17 04:00 Temperature 98.8 F Pulse Rate 75 Respiratory Rate 20 20 17 Blood Pressure 146/65 H Pulse Oximetry 96 11/07/17 05:30 11/07/17 07:15 11/07/17 08:07 Temperature 97.5 F L Pulse Rate 70 76 Respiratory Rate 22 18 18 Blood Pressure 112/60 Pulse Oximetry 100 Intake & Output 11/06/17 11/07/17 11/07/17 18:59 06:59 18:59 Intake Total 1000 / 1000 1000 / 1000 Output Total 450 / 450 Balance 1000 / 1000 550 / 550 Weight 124 lb 8.979 oz Intake: IV 1000 / 1000 1000 / 1000 NS Inj 1,000 ML @ 75 mls/hr IV. 1000 / 1000 1000 / 1000 CONT .[id number] [facility] Rx#:[id number] Output: Urine 450 / 450 Other: # Voids 1 # Urine Diapers 2 Narrative: GENERAL: Elderly female sitting up in bed in no acute distress. SKIN: Warm and dry. HEAD: Atraumatic. Normocephalic. EYES: Pupils equal and round. No scleral icterus. No injection or drainage. ENT: No nasal bleeding or discharge. Mucous membranes pink and moist. Hard of hearing. NECK: Trachea midline. No JVD. CARDIOVASCULAR: Regular rate and rhythm. RESPIRATORY: No accessory muscle use. Clear to auscultation. Breath sounds equal bilaterally. GASTROINTESTINAL: Abdomen soft, non-tender, nondistended. Hepatic and splenic margins not palpable. MUSCULOSKELETAL: Extremities without clubbing, cyanosis, or edema. No obvious deformities. NEUROLOGICAL: Awake and alert. No obvious cranial nerve deficits. PSYCHIATRIC: Appropriate mood and affect; insight and judgment normal. . - Urinary Catheter Management Straight Cath placed during this visit: no Reason for continuing: Not indwelling catheter Assessment and Plan - Assessment (1) Syncope Code(s): R55 - Syncope and collapse Status: Acute Plan: No recurrent syncope overnight. Status post permanent pacemaker, device function appropriate. Per my discussion with Dr. Still, she can be discharged home at the discretion of the managing team with outpatient follow-up with Dr. Borrero. (1) Syncope Qualifiers: Encounter type: sequela
[2017-11-07] MEDS: FLUoxetine 20 MG Capsule PO SCH (08:51)
[2017-11-07] MEDS: Divalproex 500 MG ER Tablet PO SCH (08:56)
--- NOTE | 2017-11-07 12:44 | P.PN ---
Subjective Interval history: Patient is seen lying in bed. is at bedside. They tell me that she is ready to go home. She has had no further single or dizziness. Reluctantly agrees that falls may be related to excess medication and not eating. No chest pain or shortness of breath. No nausea vomiting or diarrhea. Physical Exam Vital signs: Vital Signs 11/06/17 13:21 11/06/17 16:00 11/06/17 17:50 Temperature 97.5 F L Pulse Rate 91 H 73 74 Respiratory Rate 17 17 Blood Pressure 111/52 L Pulse Oximetry 99 11/06/17 19:00 11/06/17 19:15 11/06/17 19:48 Temperature 98.1 F Pulse Rate 79 77 Respiratory Rate 18 16 Blood Pressure 119/59 L Pulse Oximetry 94 L 97 11/07/17 00:00 11/07/17 00:04 11/07/17 00:35 Temperature 98.7 F Pulse Rate 70 Respiratory Rate 17 20 20 Blood Pressure 148/68 H Pulse Oximetry 94 L 11/07/17 04:00 11/07/17 05:30 11/07/17 07:15 Temperature 98.8 F Pulse Rate 75 70 Respiratory Rate 17 22 18 Blood Pressure 146/65 H Pulse Oximetry 96 11/07/17 08:00 11/07/17 08:07 11/07/17 12:01 Temperature 97.5 F L 97.6 F Pulse Rate 72 76 76 Respiratory Rate 18 17 Blood Pressure 112/60 128/60 Pulse Oximetry 100 93 L Intake & Output 11/06/17 11/07/17 11/07/17 18:59 06:59 18:59 Intake Total 1000 / 1000 1000 / 1000 Output Total 450 / 450 Balance 1000 / 1000 550 / 550 Weight 56.5 kg Intake: IV 1000 / 1000 1000 / 1000 NS Inj 1,000 ML @ 75 mls/hr IV. 1000 / 1000 1000 / 1000 CONT .[id number] [facility] Rx#:[id number] Output: Urine 450 / 450 Other: # Voids 1 # Urine Diapers 2 Narrative: GENERAL: Elderly female sitting up in bed in no acute distress. SKIN: Warm and dry. HEAD: Atraumatic. Normocephalic. NECK: Trachea midline. No JVD. CARDIOVASCULAR: Regular rate and rhythm. RESPIRATORY: No accessory muscle use. Clear to auscultation. Breath sounds equal bilaterally. GASTROINTESTINAL: Abdomen soft, non-tender, nondistended. Hepatic and splenic margins not palpable. MUSCULOSKELETAL: Extremities without clubbing, cyanosis, or edema. No obvious deformities. NEUROLOGICAL: Awake and alert. No obvious cranial nerve deficits. PSYCHIATRIC: Appropriate mood and affect; insight and judgment normal. . - Urinary Catheter Management Straight Cath placed during this visit: no Reason for continuing: Not indwelling catheter Results - Labs CBC & Chem 7: 11/05/17 14:15 11/06/17 06:30 Microbiology 11/05/17 14:20 Blood - Peripheral Aerobic Blood Culture - Preliminary No growth in 2 days 11/05/17 14:20 Blood - Peripheral Anaerobic Blood Culture - Preliminary No growth in 2 days 11/05/17 14:15 Blood - Peripheral Aerobic Blood Culture - Preliminary No growth in 2 days 11/05/17 14:15 Blood - Peripheral Anaerobic Blood Culture - Preliminary No growth in 2 days - Imaging Impressions Cervical Spine CT 11/06/17 00:00 CONCLUSION: 1. No evidence of traumatic bony or soft tissue injury. 2. Moderate degenerative disc disease at C4-5, C5-6 and C6-7. 3. No evidence of spinal stenosis or spinal cord abnormality. Lumbar Spine CT 11/06/17 00:00 CONCLUSION: 1. Degenerative disc disease with foraminal stenosis as described. 2. No evidence of traumatic bony or soft tissue injury. 3. Broad-based disc protrusion at L3-4. 4. Posterior broad-based disc osteophyte complex with anterior epidural effacement at L4-5. Thoracic Spine CT 11/06/17 00:00 CONCLUSION: 1. No evidence of traumatic soft tissue or bony injury. 2. Mild degenerative disc disease with spondylosis. Assessment and Plan - Assessment (1) Physical deconditioning Code(s): R53.81 - Other malaise Status: Acute (2) Unstable gait Code(s): R26.81 - Unsteadiness on feet Status: Acute - Plan Patient is a 67 years old female with past medical history of COPD, CAD, cardiac arrest, anxiety, depression, loop recorder, and recent pacemaker placement for cardiac dysrhythmias. Presented to the ED for increased weakness and lethargy the last few days that is getting worse and had fallen 3 times toda. Metabolic encephalopathy with questionable syncope, on chronic opioid use Rule out infection, will send for urine -urine negative -Neuro checks every 4 -Cardiac telemetry monitoring -Monitor labs CBC and BMP Acute kidney injury/hyponatremia/dehydration -Start IV fluid normal saline at 75 an hour -Monitor for BMP -Head CT with no acute findings -Chest x-ray with no acute findings Unwitnessed fall, questionable syncope with recent pacemaker -Neuro checks, -Physical therapy evaluation -patient will need home health/PT Chronic pain, status post fall complaining of lower back pain -Lumbar spine x-ray showed multiple degenerative changes; will order CT of spine due to continued complaint of pain -CT negative for acute changes or evidence of injury. -Continue narcotics for pain management -patient is on scheduled hydrocodone at home. [email or web address] database consulted. Encouraged patient to limit narcotic use as much as possible as it is likely contributing to falls. History of cardiac dysrhythmia status post pacemaker placement -pacemaker check/interrogation -no negative events noted. Cleared by cardiology for discharge -Placed on cardiac telemetry for heart rate monitoring Serial EKG and troponin, EKG reviewed within normal limits History of CAD, denies any chest pain -Continue current medication Hyponatremia -Chronic; patient reports 2 g sodium daily at home. Possibly related to Prozac -Monitor DVT prophylaxis: SCD's
--- NOTE | 2017-11-07 12:56 | P.DS ---
Date of admission: 11/05/17 18:24 Primary care physician: UNKNOWN Attending physician on discharge: Abelardo Velazquez Anticipated date of discharge: 11/07/17 Brief History from admission: Patient is a 67 years old female with past medical history of COPD, CAD, cardiac arrest, anxiety, depression, loop recorder and cardiac arrhythmia with recent pacemaker placement with Dr. Still 2 weeks. Patient had a recent cardiac arrest and was admitted at [facility] in September 27, 2017 patient was found to have V. fib was shocked 2 times and with continued CPR. Today patient presented to the ED after falling 3 times at home and altered mental status with general weakness and increased lethargy for the past few days days. Patient lying in bed complaining of lower back pain of 10 out of 10 without any radiation. Denies any dizziness, nausea or vomiting. Denies any shortness of breath. Patient alert and oriented 3, however drifting during conversation. Unable to provide the whole medical history and was obtained from the past medical records. Family at bedside reported to be siblings but unable to provide any history. DS: Diagnosis - Discharge Diagnosis (1) Physical deconditioning Status: Acute (2) Unstable gait Status: Acute (3) Altered mental status Status: Resolved DS: Summary Hospital Course: Patient is a 67 years old female with past medical history of COPD, CAD, cardiac arrest, anxiety, depression, loop recorder, and recent pacemaker placement for cardiac dysrhythmias. Presented to the ED for increased weakness and lethargy the last few days that is getting worse and had fallen [address] negative. Spinal CT negative for acute injury. EKG and troponins negative. Patient's pacemaker interrogated with no concerning events. She was cleared by cardiology for discharge home. Noted to have hyponatremia-this is chronic per patient. Likely related to Prozac use. Some acute kidney injury which resolved with fluids. No further syncopal events -falls prior to admission likely related to excess pain medication and potentially dehydration. - Time Spent with Patient Total time spent providing and/or coordinating discharge services: Less than 30 minutes - Quality: VTE Deep Vein Thrombosis/Pulmonary Embolism Present on Admission: No Exam Vital signs: Vital Signs 11/06/17 13:21 11/06/17 16:00 11/06/17 17:50 Temperature 97.5 F L Pulse Rate 91 H 73 74 Respiratory Rate 17 17 Blood Pressure 111/52 L Pulse Oximetry 99 11/06/17 19:00 11/06/17 19:15 11/06/17 19:48 Temperature 98.1 F Pulse Rate 79 77 Respiratory Rate 18 16 Blood Pressure 119/59 L Pulse Oximetry 94 L 97 11/07/17 00:00 11/07/17 00:04 11/07/17 00:35 Temperature 98.7 F Pulse Rate 70 Respiratory Rate 17 20 20 Blood Pressure 148/68 H Pulse Oximetry 94 L 11/07/17 04:00 11/07/17 05:30 11/07/17 07:15 Temperature 98.8 F Pulse Rate 75 70 Respiratory Rate 17 22 18 Blood Pressure 146/65 H Pulse Oximetry 96 11/07/17 08:00 11/07/17 08:07 11/07/17 12:01 Temperature 97.5 F L 97.6 F Pulse Rate 72 76 76 Respiratory Rate 18 17 Blood Pressure 112/60 128/60 Pulse Oximetry 100 93 L Intake & Output 11/06/17 11/07/17 11/07/17 18:59 06:59 18:59 Intake Total 1000 / 1000 1000 / 1000 Output Total 450 / 450 Balance 1000 / 1000 550 / 550 Weight 56.5 kg Intake: IV 1000 / 1000 1000 / 1000 NS Inj 1,000 ML @ 75 mls/hr IV. 1000 / 1000 1000 / 1000 CONT .[id number] [facility] Rx#:[id number] Output: Urine 450 / 450 Other: # Voids 1 # Urine Diapers 2 Narrative: GENERAL: Elderly female sitting up in bed in no acute distress. SKIN: Warm and dry. HEAD: Atraumatic. Normocephalic. NECK: Trachea midline. No JVD. CARDIOVASCULAR: Regular rate and rhythm. RESPIRATORY: No accessory muscle use. Clear to auscultation. Breath sounds equal bilaterally. GASTROINTESTINAL: Abdomen soft, non-tender, nondistended. Hepatic and splenic margins not palpable. MUSCULOSKELETAL: Extremities without clubbing, cyanosis, or edema. No obvious deformities. NEUROLOGICAL: Awake and alert. No obvious cranial nerve deficits. PSYCHIATRIC: Appropriate mood and affect; insight and judgment normal. . Results Procedures completed during hospitalization: none Labs on day of discharge: Preliminary micro results at discharge 11/05/17 14:20 Aerobic Blood Culture - Preliminary Blood - Peripheral No growth in 2 days Anaerobic Blood Culture - Preliminary No growth in 2 days 11/05/17 14:15 Aerobic Blood Culture - Preliminary Blood - Peripheral No growth in 2 days Anaerobic Blood Culture - Preliminary No growth in 2 days - Impressions ITS Impressions Lumbar Spine X-Ray 11/05/17 00:00 CONCLUSION: 1. Diffuse degenerative disc changes. 2. Degenerative joint changes involving the lower facets. 3. Osteopenia with no acute fracture or malalignment. 4. Mild to moderate scoliosis. Chest X-Ray 11/05/17 14:14 CONCLUSION: Pacer on the left otherwise negative. Head CT 11/05/17 14:14 CONCLUSION: Stable noncontrast head CT. No acute intracranial abnormality is identified. . Cervical Spine CT 11/06/17 00:00 CONCLUSION: 1. No evidence of traumatic bony or soft tissue injury. 2. Moderate degenerative disc disease at C4-5, C5-6 and C6-7. 3. No evidence of spinal stenosis or spinal cord abnormality. Lumbar Spine CT 11/06/17 00:00 CONCLUSION: 1. Degenerative disc disease with foraminal stenosis as described. 2. No evidence of traumatic bony or soft tissue injury. 3. Broad-based disc protrusion at L3-4. 4. Posterior broad-based disc osteophyte complex with anterior epidural effacement at L4-5. Thoracic Spine CT 11/06/17 00:00 CONCLUSION: 1. No evidence of traumatic soft tissue or bony injury. 2. Mild degenerative disc disease with spondylosis. Discharge Plan - Discharge Disposition Patient Disposition: /Home Health Service - Discharge Condition Condition: Stable - Discharge Order Discharge Orders: Discharge Order (Routine); Ordered 11/07/17 Ordered By: Delia Serrano - Discharge Details Anticipated Discharge Date: 11/05/17 - Physicians Team Primary Care Provider: UNKNOWN, Attending Provider: Abelardo Velazquez Other Providers: Gregory Still MD
== END 2017-11-07 15:49 | disposition home health service (06) ==
LOC: NEDA 13:46 → NEPC 13:46 → NEDA 19:45 → NEPFCDU 20:09
PROVIDERS: ADMIT Hospitalist; ATTEND Hospitalist